=== PATIENT | male | born 2000 | race Caucasian/White ===

== ENCOUNTER 2022-12-20 11:30 | Emergency (ER) | payer OTHER, SELFPAY ==
--- NOTE | ~2022-12-20 | XR_ITS ---
EXAMINATION: XR KNEE, LEFT CLINICAL INFORMATION: Left knee pain. Anterior knee pain following a fall. COMPARISON: None TECHNIQUE: Four views of the left knee. FINDINGS: Bones and soft tissues are normal. No fracture or joint effusion. Alignment is anatomic. Joint spaces are well maintained. No abnormal soft tissue calcification. XR/XR knee LT 4V IMPRESSION: Unremarkable examination.
[2022-12-20 11:38] VITALS: BP 129/68; PULSE 76; RESP 18; TEMP 36.1; O2SAT 99; BMI 51.7
--- NOTE | 2022-12-20 11:41 | ED_ITS ---
HPI - General Adult General Chief complaint: Extremity Injury, Lower Stated complaint: L knee inj Time Seen by Provider: 12/20/22 11:41 Source: patient Mode of arrival: ambulatory Limitations: no limitations History of Present Illness HPI narrative: 22 [id number] presents with left knee pain s/p mechanical fall four days ago. Able to ambulate after. Denies head injury. Reports landing on medial aspect of knee with recent ER visit to [facility] without finding any acute process. Reports pain with extension. Also reports intermittent clicking when flexing knee. No limits with ROM. Onset (ago): day(s) (4) Location: left and lower extremity Radiation: non-radiation Severity: mild Severity scale (1-10): 3 Quality: dull Pain Consistency: intermittent Relieving factors: none Exacerbating factors: movement Associated symptoms: denies other symptoms Treatments prior to arrival: none Related Data Allergies Allergy/AdvReac Type Severity Reaction Status Date / Time No Known Allergies Allergy Verified 12/20/22 11:38 Review of Systems Constitutional: Constitutional: Reports no additional constitutional complaints, Denies chills, Denies fever(s) and Denies night sweats Eyes: Eyes: Reports as per HPI and Denies loss of vision ENT: Reports system reviewed and no additional complaints, except as doc umented and Denies dizziness Cardiovascular: Cardiovascular: Reports no additional cardiovascular complaints and Denies dyspnea Respiratory: Respiratory: Reports no additional respiratory complaints and Denies dyspnea Gastrointestinal: Gastrointestinal: Reports no additional gastrointestinal complaints, Denies abdominal pain, Denies melena, Denies hematochezia, Denies change in bowel habits and Denies change in stool character Genitourinary: Genitourinary: Reports no additional male genitourinary complaints, Denies hematuria, Denies oliguria, Denies difficulty urinating, Denies dysuria, Denies urinary frequency, Denies urinary hesitancy, Denies urinary incontinence and Denies urinary urgency Musculoskeletal: Musculoskeletal: Denies numbness and Denies tingling Comments: left knee pain Neurologic: Denies dizziness, Denies loss of vision, Denies numbness and Denies tingling Psychiatric: Psychiatric: Reports no additional psychiatric complaints Endocrine: Endocrine: Reports no additional endocrine complaints Hematologic/Lymphatic: Hematologic/Lymphatic: Reports no additional hematologic/lymphatic complaints Allergic/Immunologic: Allergic/Immunologic: Reports no additional allergic/immunologic complaints PMFSH Past Medical History Attestation statement: The following information was validated with the patient. Source: old records reviewed and nursing notes reviewed Social History Social History Advance Directives: No Advance Directives Information Provided: Yes Physical Exam ED Vital Signs: Vital Signs - 24 hr 12/20/22 11:38 Temperature 97 F Pulse Rate 76 Respiratory Rate 18 Blood Pressure 129/68 Pulse Oximetry 99 Oxygen Delivery Method Room Air BMI result Body Mass Index 51.7 Resp Auscultation: clear to auscultation bilaterally Cardio Rhythm: regular rhythm Heart sounds: S1 normal heart sound present and S2 normal heart sound present Extrem General: Yes normal to inspection, Yes full ROM and Yes capillary refill normal Left lower extremity: knee Details: abnormal to inspection, tenderness, swelling Location: of the infrapatellar area, normal ROM and ecchymosis (medial joint line) Procedures Orthopedic Splinting/Casting Injury #1: Side: left Lower Extremity Injury Location: knee Lower Extremity Immobilizer: Bebo wrap Other Orthopedic Equipment: crutches Medical Decision Making Medical Decision Making MDM Narrative: Patient is a 22 year old assigned male at with no reported medical history presenting to the emergency department today with left knee pain. Patient's physical exam was unremarkable. Patient's left knee x-ray showed no acute process. I explained my physical exam findings as well as all test results to the patient. I answered all questions asked by the patient. Patient's left knee was wrapped with bebo wrap and he was given crutches with crutch instructions. I stressed the importance of the patient taking his medication as prescribed. I stressed the importance of the patient following up with his primary care provider and an orthopedic provider. I stressed the importance of the patient returning to the emergency department immediately if his symptoms were to worsen or if he were to develop any dizziness, shortness of breath, difficulty breathing, chest pain, blurry vision, loss of vision, nausea, vomiting, abdominal pain, fever, chills, back pain, or any other complaints. Patient verbalized agreement and understanding with this treatment plan and discharge. Differential Diagnosis Differential Diagnoses: The differential diagnosis associated with the presentation includes left knee sprain, left knee strain, left knee injury Independent Interpretation Interpretation: My interpretation is in agreement with the radiologist's impression of this imaging study. EXAMINATION: XR KNEE, LEFT CLINICAL INFORMATION: Left knee pain. Anterior knee pain following a fall.? COMPARISON: None? TECHNIQUE: Four views of the left knee. FINDINGS: Bones and soft tissues are normal. No fracture or joint effusion. Alignment is anatomic. Joint spaces are well maintained. No abnormal soft tissue calcification.? XR/XR knee LT 4V IMPRESSION: Unremarkable examination. Dictated By: Yasmani Ramsey MD Signed By: Electronically signed by Yasmani Ramsey MD 12/20/22 8310 Discharge Plan Discharge Clinical Impression: Injury of knee Patient Disposition: Home, Self-Care Instructions: Crutch Instructions (ED), Knee Pain (ED) Additional Instructions: Follow up with your primary care provider and an orthopedic provider. Return to the emergency department immediately if your symptoms worsen or if you develop any dizziness, shortness of breath, difficulty breathing, chest pain, blurry vision, loss of vision, nausea, vomiting, abdominal pain, fever, chills, back pain, or any other complaints. Referrals: [facility] [place]] (Call to establish and follow up with a primary care provider. If you already have a primary care provider, please follow up with them. ) [facility] [Provider Group] (Call to establish and follow up with a primary care provider. If you already have a primary care provider, please follow up with them. ) [facility] [Provider Group] (Call to establish and follow up with a primary care provider. If you already have a primary care provider, please follow up with them. ) [facility] Surgeons [Provider Group] (Call to establish and follow up with an orthopedic provider.) Interventions: ED Discharge Assessment Last Done: 12/20/22 12:56 Discharge Date/Time: 12/20/22 12:57 Print Language: Grenadian
--- OUTSIDE RECORDS SUMMARY | 2022-12-20 12:08 | XMS_ITS | Continuity of Care Document ---
:2000 Author Organization [facility] Address [address] [place] [address]- Care Team Providers Name Role Phone Renea Puga MD Primary Care Physician [facility]counter [facility] Date(s): 12/02/21 - 01/01/22 [facility] [address] [place] [id number] Attending Physician: Hattie Cardenas Admitting Physician: Hattie Cardenas Referring Physician: Hattie Cardenas Allergies, Adverse Reactions, Alerts No Known Allergies Immunizations Given and Recorded Vaccine Date Status Refusal Reason Meningococcal Conjugate Vaccine1 06/01/18 Given Meningococcal Conjugate Vaccine 07/26/14 Given influenza virus vaccine, inactivated 07/15/17 Given influenza virus vaccine, inactivated 09/30/15 Given influenza virus vaccine, inactivated 07/26/14 Given influenza virus vaccine, inactivated2 07/22/11 Given influenza virus vaccine, inactivated3 10/30/10 Given influenza virus vaccine, inactivated 09/22/04 Given influenza virus vaccine, inactivated 02 Given influenza virus vaccine, inactivated 02 Given Human Papillomavirus Vaccine 09/10/16 Given Human Papillomavirus Vaccine 09/30/15 Given Human Papillomavirus Vaccine 07/26/14 Given tetanus/diphtheria/pertussis, acel(Tdap) 07/26/14 Given Hepatitis A Pediatric Vaccine4 07/04/12 Given Hepatitis A Pediatric Vaccine 08/20/07 Given Influenza Vaccine (oldterm)5 07/04/12 Given Influenza Vaccine (oldterm) 09/22/04 Given Influenza Vaccine (oldterm) 02 Given Influenza Vaccine (oldterm) 02 Given influ virus vac, H1N1, inactive(oldterm)6 09/12/09 Given Influenza Inactive (IM) (oldterm)7 11/13/08 Given Diphth/Pertussis,Acel/Tetanus (oldterm) 08/20/07 Given Varicella Virus Vaccine8 12/02/06 Given Varicella Virus Vaccine 03/16/03 Given diphtheria/tetanus/pertussis, acel(DTaP) 04/08/06 Given diphtheria/tetanus/pertussis, acel(DTaP) 01/04/04 Given diphtheria/tetanus/pertussis, acel(DTaP) 02 Given diphtheria/tetanus/pertussis, acel(DTaP) 02 Given diphtheria/tetanus/pertussis, acel(DTaP) 02 Given Poliovirus Vaccine, Inactivated 04/08/06 Given Poliovirus Vaccine, Inactivated 01/04/04 Given Poliovirus Vaccine, Inactivated 02 Given Poliovirus Vaccine, Inactivated 02 Given Measles/Mumps/Rubella Virus Vaccine 04/08/06 Given Measles/Mumps/Rubella Virus Vaccine 03/16/03 Given Prevnar (oldterm) 01/04/04 Given Prevnar (oldterm) 02 Given Prevnar (oldterm) 02 Given Haemophilus B Conj Vaccine (oldterm) 03/16/03 Given Haemophilus B Conj Vaccine (oldterm) 02 Given Haemophilus B Conj Vaccine (oldterm) 02 Given Haemophilus B Conj Vaccine (oldterm) 02 Given Hepatitis B Vaccine (old term) 02 Given Hepatitis B Vaccine (old term) 02 Given Hepatitis B Vaccine (old term) 02 Given 1Admin Note: Diluent Lot #[id number] [facility]05/[facility][id number] Note: vis given Admin Note: VIS Admin Note: VIS - Admin Note: vis given 05/09/201288521Vwzrv Note: vis dmin Note: VIS dmin Note: vis given Medications albuterol 0.083% inhalation solution 3 mL, Inhalation, Every 6 hours, PRN NEEDED FOR WHEEZING/SHORTNESS OF BREATH, # 150 mL, 5 Refills, Maintenance, 12/08/21 8:28:00 EST, [id number], 175.5, cm, 10/20/21 17:41:00 EST, Height Start Date: 12/08/21 Status: OrderedBanophen 25 mg oral tablet TAKE 2 TABLETS BY MOUTH EVERY DAY AT BEDTIME *N/C* Start Date: 03/26/21 Status: OrderedbusPIRone 5 mg oral tablet TAKE 1 TABLET BY MOUTH TWICE A DAY Start Date: 03/26/21 Status: OrderedFlonase 50 mcg/inh nasal spray 1 sprays, Nares, Both, Daily in AM, # 16 Gm, 11 Refills, Maintenance, 09/23/21 11:12:00 EST, [place], [id number], Partial fill upon patient request if the prescription is for a schedule II opioiddrug., 1 sprays Nares, Both Daily in AM, 175.5, c... Start Date: 09/23/21 Status: OrderedFlovent Diskus 100 mcg/inh inhalation powder 1 puffs, Inhalation, 2 times a day, # 60 each, 11 Refills, Maintenance, 09/23/21 11:11:00 EST, [place], [id number], Partial fill upon patient request if the prescription is for a schedule II opioid drug., 1 puffs Inhalation 2 times a day, 175.5... Start Date: 09/23/21 Status: OrderedNebulizer/Compressor See Instructions, # 1 each, Maintenance, dx asthma use nebulizer q 4-6 hrs as needed, 09/23/21 11:13:00 EST, Supply, 175.5, cm, 09/23/21 10:40:00 EST, Height Start Date: 09/23/21 Status: OrderedZyrTEC-D 5 mg-120 mg oral tablet, extended release 1 tablet, By Mouth, Every 24 hours, # 30 tablet, 2 Refills, Maintenance, 09/23/21 11:12:00 EST, ER Tablet, [id number], Partial fill upon patient request if the prescription is for a schedule IIopioid drug., 1 tablet By Mouth Every 24 hours,x3... Start Date: 09/23/21 Stop Date: 12/22/21 Status: Ordered Problem List Condition Effective Dates Status Health Status Informant ADHD - Attention deficit disorder with Active hyperactivity(Confirmed) Anxiety disorder NOS(Confirmed) Active Mild Intermittent Asthma(Confirmed) Active Dysthymic disorder - follows with Pat Active Hsea(Confirmed)1 Elevated BP(Confirmed) Active Rash(Confirmed) Active Obesity - follows with Pedi Active Endo(Confirmed) Obstructive sleep apnea syndrome, Active severe(Confirmed) 1PCODY Torres; Christine Tellez MIXER WHIPPED TOPPING [facility]; [phone]; CSI [address] Social History Social History Type Response Smoking Status Never smoker; Tobacco user i n household: Yes entered on: 09/28/17 Sex
--- OUTSIDE RECORDS SUMMARY | 2022-12-20 12:08 | XMS_ITS | Continuity of Care Document ---
:2002 Author Organization [facility] Address [address] [place] [address]- Care Team Providers Name Role Phone Renea Puga MD Primary Care Physician Encounter [facility] Date(s): 09/27/21 - 11/19/[address] [address]- Attending Physician: Not on Staff, Attending MD Allergies, Adverse Reactions, Alerts Substance Reaction Severity Status NKA Active Immunizations Given and Recorded Vaccine Date Status [...] term) 02 Given 1Admin Note: Diluent Lot #[id number] [facility]05/2019 [facility][id number] Note: vis given Admin Note: VIS Admin Note: VIS - Admin Note: vis given 05/09/201245041Lhufm Note: vis 08/09/097Admin Note: VIS dmin Note: vis given Medications Albuterol (Eqv-ProAir HFA) 90 mcg/inh inhalation aerosol 2 puffs, Inhalation, Every 6 hours, # 6.7 Gm, 11 Refills, Maintenance, 09/23/21 11:12:00 EST, [id number], Partial fill upon patient request if the prescription is for a schedule II opioid drug., 2 puffs Inhalation Every 6 hours, 175.5, cm, 11/... Start Date: 09/23/21 Status: Orderedalbuterol 0.083% inhalation solution 3 mL = 2.5 mg, Inhalation, Every 6 hours, PRN for wheezing/shortness of breath, # 60 each, 0 Refills, Maintenance, 09/23/21 11:12:00 EST, [place], [id number], Partial fill upon patient requestif the prescription is for a schedule II opioid d... Start Date: 09/23/21 Status: OrderedBanophen 25 mg oral tablet TAKE 2 TABLETS BY MOUTH EVERY DAY AT BEDTIME *N/C* Start Date: 03/26/21 Status: OrderedbusPIRone 5 mg oral tablet TAKE 1 TABLET BY MOUTH TWICE A DAY Start Date: 03/26/21 Status: OrderedFlonase 50 mcg/inh nasal spray 1 sprays, Nares, Both, Daily in AM, # 16 Gm, 11 Refills, Maintenance, 09/23/21 11:12:00 EST, [place], [facility], Partial fill upon patient request [...] Refills, Maintenance, 09/23/21 11:12:00 EST, ER Tablet, [id number], Partial fill upon patient request if the prescription is for a schedule IIopioid drug., 1 tablet By Mouth Every 24 hours,x3... Start Date: 09/23/21 Stop Date: 12/22/21 Status: Ordered Problem List Condition Effective Dates Status Health Status Informant ADHD - Attention deficit disorder with Active hyperactivity(Confirmed) Anxiety disorder NOS(Confirmed) Active Mild Intermittent Asthma(Confirmed) Active Dysthymic disorder - follows with Pat Active Shea(Confirmed)1 Elevated BP(Confirmed) Active Rash(Confirmed) Active Obesity - follows with Pedi Active Endo(Confirmed) Obstructive sleep apnea syndrome, Active severe(Confirmed) 1PCODY Torres; Christine Tellez BOX STRAPPER [facility]; [phone]; CSI [address] Social History Social History Type Response Smoking Status Never smoker; Tobacco user i n household: Yes entered on: 09/28/17 Sex
--- OUTSIDE RECORDS SUMMARY | 2022-12-20 12:08 | XMS_ITS | Continuity of Care Document ---
:2002 Author Organization [facility] Address [address] [place] [address]- Care Team Providers Name Role Phone Renea Puga MD Primary Care Physician [place] [facility]08[place] - 06/07/[address] [address]- Attending Physician: Hattie Cardenas Admitting Physician: Hattie Cardenas Referring Physician: Hattie Cardenas Allergies, Adverse Reactions, Alerts Substance Reaction Severity [...] term) 02 Given 1Admin Note: Diluent Lot #[id number] Exp:04/05/2019 Manuf;[id number] Note: vis given Admin Note: VIS Admin Note: VIS - Admin Note: vis given 05/09/201219543Xobvg Note: vis 08/09/097Admin Note: VIS dmin Note: vis given Medications Banophen 25 mg oral tablet TAKE 2 TABLETS BY MOUTH EVERY DAY AT BEDTIME *N/C* Start Date: 03/26/21 Status: OrderedbusPIRone 5 mg oral tablet TAKE 1 TABLET BY MOUTH TWICE A DAY Start Date: 03/26/21 Status: Ordered Problem List Condition Effective Dates Status Health Status Informant ADHD - Attention deficit disorder with Active hyperactivity(Confirmed) Anxiety disorder NOS(Confirmed) Active Mild Intermittent Asthma(Confirmed) Active Dysthymic disorder - follows with Pat Active Shea(Confirmed)1 Elevated BP(Confirmed) Active Rash(Confirmed) Active Obesity - follows with Pedi Active Endo(Confirmed) 1PCODY Torres; Christine Tellez CHIEF OPERATING ENGINEER [facility]; [phone]; CSI [address] Social History Social History Type Response Smoking Status Never smoker; Tobacco user i n household: Yes entered on: 09/28/17 Sex
--- OUTSIDE RECORDS SUMMARY | 2022-12-20 12:08 | XMS_ITS | Continuity of Care Document ---
:2002 Author Organization [facility] Address [address] [place] [address]- Care Team Providers Name Role Phone Renea Puga MD Primary Care Physician [place] [facility] [place] 07/29/22 - 08/28/22 [facility] [address] [address]- Attending Physician: Hattie Cardenas Admitting Physician: Hattie [...] term) 02 Given 1Admin Note: Diluent Lot #[id number] Exp:04/05/2019 Manuf;[id number] Note: vis given Admin Note: VIS Admin Note: VIS - Admin Note: vis given 05/09/201214458[place] Note: vis 08/09/097Admin Note: VIS dmin Note: [...] Gm, 11 Refills, Maintenance, 09/23/21 11:12:00 EST, [place], [id number], Partial fill upon patient request [...] Date: 12/22/21 Status: Ordered Problem List Condition Confirmation Course Effective Dates Status Health I nformant Status ADHD - Attention Confirmed Active deficit disorder with hyperactivity Anxiety disorder NOS Confirmed Active Mild Intermittent Confirmed Active Asthma Dysthymic disorder - Confirmed Active follows with Pat Weber1 Elevated BP Confirmed Active Rash Confirmed Active Obesity - follows Confirmed Active with Pedi Endo Obstructive sleep Confirmed Active apnea syndrome, severe 1Padrienne Puri, RNCS; Christine Tellez LOG LOADER HELPER [facility]; [phone]; CSI [address] Social History Social History Type Response Smoking Status Never smoker; Tobacco user i n household: Yes entered on: 09/28/17 Sex Patient Care team information PersonnelName: Renea Puga MD Address: Address: [address] [place] [id number]
--- OUTSIDE RECORDS SUMMARY | 2022-12-20 12:08 | XMS_ITS | Continuity of Care Document ---
:2002 Author Organization [facility] Address [address] [place] [address]- Care Team Providers Name Role Phone Renea Puga MD Primary Care Physician [place] [facility] [place] - 04/25/[address] [address]- Attending Physician: Hattie Cardenas Admitting Physician: Hattie [...] term) 02 Given 1Admin Note: Diluent Lot #[id number] Exp:04/05/2019 Manuf;[id number] Note: vis given Admin Note: VIS Admin Note: VIS - Admin Note: vis given 05/09/201210241Ydgsw Note: vis 08/09/097Admin Note: VIS dmin Note: [...] Pedi Active Endo(Confirmed) 1PCODY Torres; Christine Tellez ANODE REBUILDER [facility]; [phone]; CSI [address] [employer] Social History Social History Type Response Smoking Status Never smoker; Tobacco user i n household: Yes entered on: 09/28/17 Sex
--- OUTSIDE RECORDS SUMMARY | 2022-12-20 12:08 | XMS_ITS | Continuity of Care Document ---
:2002 Author Organization [facility] Address [address] [place] [address]- Care Team Providers Name Role Phone Renea Puga MD Primary Care Physician [place] [facility] [place] 11/07/21 - 03/07/22 [facility] [address] [place] [address]- Attending Physician: Mesha Stallworth MD Admitting Physician: Mesha Stallworth MD Referring Physician: Renea Puga MD Allergies, Adverse Reactions, Alerts No Known Allergies [...] term) 02 Given 1Admin Note: Diluent Lot #[id number] Exp:04/05/2019 Manuf;[id number] Note: vis given Admin Note: VIS Admin Note: VIS - Admin Note: vis given 05/09/201272115Mnxtp Note: vis 08/09/097Admin Note: VIS dmin Note: [...] Gm, 11 Refills, Maintenance, 09/23/21 11:12:00 EST, [place], [id number], Partial fill upon patient request [...] syndrome, Active severe(Confirmed) 1PCODY Torres; Christine Tellez COMMUNITY DEVELOPMENT COORDINATOR [facility]; [phone]; C[facility] [address] Social History Social History Type Response Smoking Status Never smoker; Tobacco user i n household: Yes entered on: 09/28/17 Sex
--- OUTSIDE RECORDS SUMMARY | 2022-12-20 12:08 | XMS_ITS | Continuity of Care Document ---
:2002 Author Organization [facility] Address [address] [place] [address]- Care Team Providers Name Role Phone Renea Puga MD Primary Care Physician En[place] [facility] [place] Date(s): 05/20/21 - 06/25/[address] [address] Attending Physician: Pat Haro MD Admitting Physician: Pat Haro MD Referring Physician: Pat Haro MD Allergies, Adverse Reactions, Alerts Substance Reaction [...] term) 02 Given 1Admin Note: Diluent Lot #[id number] Exp:04/05/2019 Manuf;[id number] Note: vis given Admin Note: VIS Admin Note: VIS - Admin Note: vis given 05/09/201283783Zwzft Note: vis 08/09/097Admin Note: VIS dmin Note: vis given Medications Banophen 25 mg oral tablet TAKE 2 TABLETS BY MOUTH EVERY DAY AT BEDTIME *N/C* Start Date: 5/19/21 Status: OrderedbusPIRone 5 mg oral tablet TAKE [...] Pedi Active Endo(Confirmed) 1PCODY Torres; Christine Tellez MSW [facility]; [phone]; CSI [address] Social History Social History Type Response Smoking Status Never smoker; Tobacco user i n household: Yes entered on: 09/28/17 Sex
--- OUTSIDE RECORDS SUMMARY | 2022-12-20 12:08 | XMS_ITS | Continuity of Care Document ---
:2002 Author Organization [facility] Address [address] [address]- Care Team Providers Name Role Phone Renea Puga MD Primary Care Physician [facility]counter [facility] Date(s): 12/01/21 - 02/14/22 [facility] [address] [place] [address] Attending Physician: Nuha Huffman MD Admitting Physician: Nuha Huffman MD Referring Physician: Renea Puga MD Allergies, [...] term) 02 Given 1Admin Note: Diluent Lot #[id number] Exp:04/05/2019 Manuf;[id number] Note: vis given Admin Note: VIS Admin Note: VIS - Admin Note: vis given 05/09/201276924Xljdp Note: vis 08/09/097Admin Note: VIS dmin Note: [...] Gm, 11 Refills, Maintenance, 09/23/21 11:12:00 EST, [place], [id number], Partial fill upon patient request [...] syndrome, Active severe(Confirmed) 1PCODY Torres; Christine Tellez CERTIFIED PROCEDURAL CODER [facility]; [phone]; [facility] [address] Social History Social History Type Response Smoking Status Never smoker; Tobacco user i n household: Yes entered on: 09/28/17 Sex
--- OUTSIDE RECORDS SUMMARY | 2022-12-20 12:08 | XMS_ITS | Continuity of Care Document ---
:2002 Author Organization [facility] Address [address] [place] [address]- Care Team Providers Name Role Phone Renea Puga MD Primary Care Physician [facility] Date(s): 09/18/21 - 10/18/[address] [address]- Allergies, Adverse Reactions, Alerts Substance Reaction Severity [...] term) 02 Given 1Admin Note: Diluent Lot #[id number] Exp:04/05/2019 Manuf;Cvdfr5Pmcow Note: vis given Admin Note: VIS Admin Note: VIS - Admin Note: vis given 05/09/201294339Yyupe Note: vis dmin Note: VIS dmin Note: vis given Medications Albuterol (Eqv-ProAir HFA) 90 mcg/inh inhalation aerosol 2 puffs, Inhalation, Every 6 hours, # 6.7 Gm, 11 Refills, Maintenance, 09/23/21 11:12:00 EST, [facility]/pharmacy #1972, Partial fill upon patient request if the prescription is for a schedule II opioid drug., 2 puffs Inhalation Every 6 hours, 175.5, cm, ... Start Date: 09/23/21 Status: Orderedalbuterol 0.083% inhalation [...] Gm, 11 Refills, Maintenance, 09/23/21 11:12:00 EST, [place], [facility]/pharmacy #1972, Partial fill upon patient request if [...] Pedi Active Endo(Confirmed) 1PCODY Torres; Christine Tellez ASSOCIATE PROGRAM MANAGER [facility]; [phone]; CSI [address] [place] Social History Social History Type Response Smoking Status Never smoker; Tobacco user i n household: Yes entered on: 09/28/17 Sex
--- OUTSIDE RECORDS SUMMARY | 2022-12-20 12:08 | XMS_ITS | Continuity of Care Document ---
:2002 Author Organization [facility] Address [address] [place] [address]- Care Team Providers Name Role Phone Renea Puga MD Primary Care Physician [facility] Date(s): 11/10/21 - 12/10/[address] [address]- Allergies, Adverse Reactions, Alerts No Known Allergies [...] term) 02 Given 1Admin Note: Diluent Lot #[id number] Exp:04/05/2019 [facility];Gpmoz8Ekmto Note: vis given Admin Note: VIS Admin Note: VIS - Admin Note: vis given 05/09/201276985Aorsz Note: vis dmin Note: VIS dmin Note: vis given Medications albuterol 0.083% inhalation solution 3 mL, Inhalation, Every 6 hours, PRN NEEDED FOR WHEEZING/SHORTNESS OF BREATH, # 150 mL, 5 Refills, Maintenance, 12/08/21 8:28:00 EST, [facility]/pharmacy #1972, 175.5, cm, 10/20/21 17:41:00 EST, Height [...] Gm, 11 Refills, Maintenance, 09/23/21 11:12:00 EST, [place], [facility], Partial fill upon patient request [...] syndrome, Active severe(Confirmed) 1PCODY Torres; Christine Tellez MSW [facility]; [phone]; CSI [address] [place] Social History Social History Type Response Smoking Status Never smoker; Tobacco user i n household: Yes entered on: 09/28/17 Sex
--- OUTSIDE RECORDS SUMMARY | 2022-12-20 12:08 | XMS_ITS | Continuity of Care Document ---
:2002 Author Organization [facility] Address [address] [place] [address]- Care Team Providers Name Role Phone Renea Puga MD Primary Care Physician [facility] Date(s): 03/05/22 - 04/04/[address] [address]- Allergies, Adverse Reactions, Alerts No Known Allergies [...] term) 02 Given 1Admin Note: Diluent Lot #[id number] Exp:04/05/2019 Manuf;Jiztd7Zbnbv Note: vis given Admin Note: VIS Admin Note: VIS - Admin Note: vis given 05/09/201205930Pvkmr Note: vis dmin Note: VIS dmin Note: vis given Medications albuterol 0.083% inhalation solution 3 mL, Inhalation, Every 6 hours, PRN NEEDED FOR WHEEZING/SHORTNESS OF BREATH, # 150 mL, 5 Refills, Maintenance, 12/08/21 8:28:00 EST, [facility]/pharmacy #1972, 175.5, cm, 10/20/21 17:41:00 EST, Height [...] Gm, 11 Refills, Maintenance, 09/23/21 11:12:00 EST, [place], [facility]/pharmacy #1972, Partial fill upon patient request if the prescription is for a schedule II opioiddrug., 1 sprays Nares, Both Daily in AM, 175.5, c... Start Date: 09/23/21 Status: OrderedFlovent Diskus 100 mcg/inh inhalation powder 1 puffs, Inhalation, 2 times a day, # 60 each, 11 Refills, Maintenance, 09/23/21 11:11:00 EST, [place], [facility]/pharmacy #1972, Partial fill upon patient request if [...] syndrome, Active severe(Confirmed) 1PCODY Torres; Christine Tellez GLASS SANDER [facility]; [phone]; CSI [address] [place] Social History Social History Type Response Smoking Status Never smoker; Tobacco user i n household: Yes entered on: 09/28/17 Sex
--- OUTSIDE RECORDS SUMMARY | 2022-12-20 12:08 | XMS_ITS | Continuity of Care Document ---
:2002 Author Organization [facility] Address [address] [place] [address]- Care Team Providers Name Role Phone Renea Puga MD Primary Care Physician [facility] Date(s): 11/10/21 - 12/11/[address] [address]- Attending Physician: Darron Tripp MD Admitting Physician: Darron Tripp MD Allergies, Adverse Reactions, Alerts No Known [...] term) 02 Given 1Admin Note: Diluent Lot #[id number] Exp:04/05/2019 Manuf;Dobof2Nfmmu Note: vis given Admin Note: VIS Admin Note: VIS - Admin Note: vis given 05/09/201274694Ufxha Note: vis 08/09/097Admin Note: VIS dmin Note: [...] Gm, 11 Refills, Maintenance, 09/23/21 11:12:00 EST, [place], [facility], Partial fill upon patient request [...] syndrome, Active severe(Confirmed) 1PCODY Torres; Christine Tellez LEATHER GOODS SALES REPRESENTATIVE [facility]; [phone]; CSI [address] Social History Social History Type Response Smoking Status Never smoker; Tobacco user i n household: Yes entered on: 09/28/17 Sex
--- OUTSIDE RECORDS SUMMARY | 2022-12-20 12:08 | XMS_ITS | Continuity of Care Document ---
:2002 Author Organization [facility] Address [address] [place] [address]- Care Team Providers Name Role Phone Renea Puga MD Primary Care Physician Encounter [facility] Date(s): 02/26/22 - 04/03/[address] [address] Attending Physician: Romana Israel NP Admitting Physician: Romana Israel NP Referring Physician: Romana Israel NP Allergies, Adverse Reactions, Alerts No Known Allergies [...] term) 02 Given 1Admin Note: Diluent Lot #[id number] Exp:04/05/2019 Manuf;Jgwsc8Wzsbw Note: vis given Admin Note: VIS Admin Note: VIS - Admin Note: vis given 05/09/201254429Tupqo Note: vis 08/09/097Admin Note: VIS dmin Note: vis given Medications albuterol 0.083% inhalation solution 3 mL, Inhalation, Every 6 hours, PRN NEEDED FOR WHEEZING/SHORTNESS OF BREATH, # 150 mL, 5 Refills, Maintenance, 01/31/22 8:28:00 EST, [facility], 175.5, cm, 10/20/21 [...] Gm, 11 Refills, Maintenance, 09/23/21 11:12:00 EST, [place], [facility], Partial fill upon patient request [...] syndrome, Active severe(Confirmed) 1PCODY Torres; Christine Tellez INSPECTOR CHIEF [facility]; [phone]; CSI [address] Social History Social History Type Response Smoking Status Never smoker; Tobacco user i n household: Yes entered on: 09/28/17 Sex
--- OUTSIDE RECORDS SUMMARY | 2022-12-20 12:08 | XMS_ITS | Continuity of Care Document ---
:2002 Author Organization [facility] Address [address] [place] [address]- Care Team Providers Name Role Phone Renea Puga MD Primary Care Physician [facility] Date(s): 01/15/22 - 02/14/22 [facility] [address] [place] [address] Attending Physician: Hattie Cardenas Admitting Physician: [...] term) 02 Given 1Admin Note: Diluent Lot #[id number] Exp:04/05/2019 Manuf;Qbqrs5Ihygu Note: vis given Admin Note: VIS Admin Note: VIS - Admin Note: vis given 05/09/201291838Jstvu Note: vis 08/09/097Admin Note: VIS dmin Note: [...] Gm, 11 Refills, Maintenance, 09/23/21 11:12:00 EST, [place], [facility], Partial fill upon patient request [...] syndrome, Active severe(Confirmed) 1PCODY Torres; Christine Tellez CRITICAL CARE PARAMEDIC [facility]; [phone]; CSI [address] Social History Social History Type Response Smoking Status Never smoker; Tobacco user i n household: Yes entered on: 09/28/17 Sex
--- OUTSIDE RECORDS SUMMARY | 2022-12-20 12:08 | XMS_ITS | Continuity of Care Document ---
:2002 Author Organization [facility] Address [address] [place] [address]- Care Team Providers Name Role Phone Renea Puga MD Primary Care Physician Encounter [facility] Date(s): 03/10/22 - 04/15/[address] [address] Attending Physician: Romana Israel NP [...] term) 02 Given 1Admin Note: Diluent Lot #[id number] Exp:04/05/2019 Manuf;Svgzc7Hlceq Note: vis given Admin Note: VIS Admin Note: VIS - Admin Note: vis given 05/09/201296217Ulznk Note: vis 08/09/097Admin Note: VIS dmin Note: [...] Gm, 11 Refills, Maintenance, 09/23/21 11:12:00 EST, [place], [facility], Partial fill upon patient request [...] syndrome, Active severe(Confirmed) 1PCODY Torres; Christine Tellez END MATCHER [facility]; [phone]; CSI [address] Social History Social History Type Response Smoking Status Never smoker; Tobacco user i n household: Yes entered on: 09/28/17 Sex
--- OUTSIDE RECORDS SUMMARY | 2022-12-20 12:09 | XMS_ITS | Continuity of Care Document ---
:2002 Author Organization [facility] Address [address] [place] [address]- Care Team Providers Name Role Phone Renea Puga MD Primary Care Physician [facility] Date(s): 09/29/21 - 01/01/22 [facility] [address] [place] [address]- Attending Physician: Van Quach MD Admitting Physician: Van Quach MD Referring Physician: Lora Nichols Allergies, Adverse Reactions, Alerts No Known Allergies [...] term) 02 Given 1Admin Note: Diluent Lot #[id number] Exp:04/05/2019 Manuf;Fhbxg8Nioqy Note: vis given Admin Note: VIS Admin Note: VIS - Admin Note: vis given 05/09/201200995Jsonp Note: vis 08/09/097Admin Note: VIS dmin Note: [...] Gm, 11 Refills, Maintenance, 09/23/21 11:12:00 EST, [place], [facility], Partial fill upon patient request [...] syndrome, Active severe(Confirmed) 1PCODY Torres; Christine Tellez SLEEVE SEWER [facility]; [phone]; CSI [address] Social History Social History Type Response Smoking Status Never smoker; Tobacco user i n household: Yes entered on: 09/28/17 Sex
--- OUTSIDE RECORDS SUMMARY | 2022-12-20 12:09 | XMS_ITS | Continuity of Care Document ---
:2002 Author Organization [facility] Address [address] [place] [address]- Care Team Providers Name Role Phone Renea Puga MD Primary Care Physician [facility] Date(s): 12/19/22 - 12/19/[address] [address]- Discharge Disposition: A-D/C Walkout Attending Physician: Not on Staff, Attending MD Admitting Physician: Not on Staff, Admitting MD Referring Physician: Not on Staff, Referring MD Allergies, Adverse Reactions, Alerts No Known [...] term) 02 Given 1Admin Note: Diluent Lot #[id number] Exp:04/05/2019 Manuf;Eyvzz7Efufm Note: vis given Admin Note: VIS Admin Note: VIS - Admin Note: vis given 05/09/201209675Ukial Note: vis 08/09/097Admin Note: VIS dmin Note: vis given Medications albuterol 0.083% inhalation solution 3 mL, Inhalation, Every 6 hours, PRN NEEDED FOR WHEEZING/SHORTNESS OF BREATH, # 150 mL, 5 Refills, Maintenance, 12/08/21 8:28:00 EST, [facility]/pharmacy #1972, 175.5, cm, 10/20/21 17:41:00 EST, Height Start Date: 12/08/21 Status: Orderedalbuterol CFC free 90 mcg/inh inhalation aerosol 2, puffs, Inhalation, Every 6 hours, PRN, # 1 each, Refills 1, Tot. Refills 1, Maintenance, 10/09/2214:07:00 EST, Route to Pharmacy Electronically, [id number], [facility]/pharmacy #1972, 175.5, cm, 01/21/22 14:00:00 EDT, Height Start Date: 10/09/22 Stop Date: 12/08/22 Status: OrderedBanophen 25 mg oral tablet TAKE 2 TABLETS BY MOUTH EVERY DAY AT BEDTIME *N/C* Start Date: 03/26/21 Status: OrderedbusPIRone 5 mg oral tablet TAKE 1 TABLET BY MOUTH TWICE A DAY Start Date: 03/26/21 Status: OrderedFlonase 50 mcg/inh nasal spray 1 sprays, Nares, Both, Daily in AM, # 16 Gm, 11 Refills, Maintenance, 09/23/21 11:12:00 EST, [place], [facility]/pharmacy #1972, Partial fill upon patient request if the prescription is for a schedule II opioiddrug., 1 sprays Nares, Both Daily in AM, 175.5, c... Start Date: 09/23/21 Status: OrderedFlovent Diskus 100 mcg/inh inhalation powder 1 puffs, Inhalation, 2 times a day, # 60 each, 11 Refills, Maintenance, 09/23/21 11:11:00 EST, [place], [facility]/pharmacy #1972, Partial fill upon patient request if [...] Obstructive sleep Confirmed Active apnea syndrome, severe Severe obesity Confirmed Active 1Patricia CODY Puri; Christine Tellez FRETTED STRING INSTRUMENT REPAIRER ASSISTANT [employer]; [phone]; CSI [address] [facility] Results Radiology Reports Exam Date Time Procedure Performing Provider Status 12/19/22 8:37 PM Knee 1 or 2 Views Left Abilio Lopez; Ilsa ( Verified) Notes:(Knee 1 or 2 Views Left) Reason For Exam: with Pain;TraumaRESULT: Knee 1 or 2 Views Left Knee 1 or 2 Views Left, 2 views Hx of Present Illness: left knee pain with palpation. fell on knee 3 days ago. ambulating w o difficulty but feels tight when moves a certtain way.; Reason: Trauma; with Pain; Clinical Question(s): Fracture; Special Instructions: This is a protocol film and radiologist should call any findings to the Charge Nurse COMPARISON: 12/16/2022. FINDINGS: There is no evidence of acute or healing fracture, dislocation or bone lesion. No arthritic changes. No osteochondral defects or intra-articular loose bodies. No evidence of joint effusion. No acute abnormality of the soft tissues. IMPRESSION: No acute abnormality. WSN: [id number] Ordering Physician: Volodymyr Mcghee Dictated By: Raj Jules MD Dictated Date/Time: 12/19/22 9:09 pm Reviewed By: Raj Jules MD Signed By: Raj Jules MD Signed Date/Time: 12/19/22 9:09 pm Transcribed By: MAJO Transcribed Date/Time: 12/19/22 9:07 pm Vital Signs Most recent to oldest [Reference Range]: 1 Height 175 cm (12/19/22 8:15 PM) Weight 160 kg (12/19/22 8:15 PM) Oxygen Saturation [94-100 %] 99 % (12/19/22 8:15 PM) Pulse Rate [55-90 bpm] 92 bpm *H* (12/19/22 8:15 PM) Body Mass Index [18.5-24.99 kg/m2] 52.24 kg/m2 *>HHI* (12/19/22 8:15 PM) Blood Pressure [90-138/55-84 mm Hg] 163/78 mm Hg *H* (12/19/22 8:15 PM) Respiratory Rate [16-30 br/min] 18 br/min (12/19/22 8:15 PM) Temperature [96.8-100.4 DegF] 99.0 DegF (12/19/22 8:15 PM) Mode of Delivery (Oxygen) Room air (12/19/22 8:15 PM) Blood pressure sites Arm, right (12/19/22 8:15 PM) Temperature Route Oral (12/19/22 8:15 PM) Dry Weight 160 kg (12/19/22 8:15 PM) Weight Obtained Via Standing scale (12/19/22 8:15 PM) Dry Weight Obtained Via Standing scale (12/19/22 8:15 PM) Social History Social History Type Response Smoking Status Never smoker; Tobacco user i n household: Yes entered on: 09/28/17 Sex XR Knee - left 1 or 2 Views BHSPowerscribe , CIS S: TRANSCRaj Rebolledo MD: VERIFY Event Display: Result: Authored Date: Knee 1 or 2 Views Left, 2 views Hx of Present Illness: left knee pain with palpation. fell on knee 3 days ago. ambulating w o difficulty but feels tight when moves a certtain way.; Reason: Trauma; with Pain; Clinical Question(s): Fracture; Special Instructions: This is a protocol film and radiologist should call any findings to the Charge Nurse COMPARISON: 12/16/2022. FINDINGS: There is no evidence of acute or healing fracture, dislocation or bone lesion. No arthritic changes. No osteochondral defects or intra-articular loose bodies. No evidence of joint effusion. No acute abnormality of the soft tissues. IMPRESSION: No acute abnormality. WSN: [id number] Ordering Physician: Volodymyr Mcghee Dictated By: Raj Jules MD Dictated Date/Time: 12/19/22 9:09 pm Reviewed By: Raj Jules MD Signed By: Raj Jules MD Signed Date/Time: 12/19/22 9:09 pm Transcribed By: MAJO Transcribed Date/Time: 12/19/22 9:07 pm Patient Care team information Care Team PersonnelName: Renea Puga MD Position: [facility] Resident Member Role: PCP Address: Address: [address] [place] [address]- Care Team Related PersonsName: BRISEYDA HUITRON Address: home [address] [place] [address] Name: DELGADO HUITRON Address: home [address] [place] [address] Name: JAMMIE HARRY Address: home [address] [place] [address]
--- OUTSIDE RECORDS SUMMARY | 2022-12-20 12:09 | XMS_ITS | Continuity of Care Document ---
:2002 Author Organization [facility] Address [address] [place] [address]- Care Team Providers Name Role Phone Renea Puga MD Primary Care Physician Encounter [facility] Date(s): 05/07/21 - 06/07/[address] [address]- Attending Physician: Swati Truong MD Admitting Physician: Swati Truong MD Referring Physician: Renea Puga MD Allergies, Adverse Reactions, Alerts Substance Reaction [...] term) 02 Given 1Admin Note: Diluent Lot #[id number] Exp:04/05/2019 Manuf;Vbqqm7Hhike Note: vis given Admin Note: VIS Admin Note: VIS - Admin Note: vis given 05/09/201200657Jdoni Note: vis 08/09/097Admin Note: VIS dmin Note: [...] Active Endo(Confirmed) 1PCODY Torres; Christine Tellez MSW [facility]; [phone]; [address] [place] Social History Social History Type Response Smoking Status Never smoker; Tobacco user i n household: Yes entered on: 09/28/17 Sex
--- OUTSIDE RECORDS SUMMARY | 2022-12-20 12:09 | XMS_ITS | Continuity of Care Document ---
:2002 Author Organization [facility] Address [address] [place] [address]- Care Team Providers Name Role Phone Renea Puga MD Primary Care Physician [facility] Date(s): 11/22/20 - 12/22/[address] [address]- Allergies, Adverse Reactions, Alerts Substance Reaction Severity [...] term) 02 Given 1Admin Note: Diluent Lot #[id number] Exp:04/05/2019 Manuf;Flhhs6Sintq Note: vis given Admin Note: VIS Admin Note: VIS - Admin Note: vis given 05/09/201209705Mfocj Note: vis dmin Note: VIS dmin Note: vis given Medications diphenhydrAMINE 25 mg oral tablet 1 tablet = 25 mg, By Mouth, Daily at bedtime, PRN for allergy symptoms, Maintenance, 11/12/20 11:42:00 EST, [place], Partial fill upon patient request if the prescription is for a schedule II opioid drug. Start Date: 11/12/20 Status: OrderedLamoTRIgine Starter Kit orange oral tablet 1 tablet, By Mouth, Daily, TAKE 1 TABLET BY MOUTH DIRECTED Start Date: 11/12/20 Status: Ordered Problem List Condition Effective Dates Status Health Status Informant ADHD - Attention deficit disorder with Active hyperactivity(Confirmed) Anxiety disorder NOS(Confirmed) Active Mild Intermittent Asthma(Confirmed) Active Dysthymic disorder - follows with Pat Active Shea(Confirmed)1 Elevated BP(Confirmed) Active Rash(Confirmed) Active Obesity - follows with Pedi Active Endo(Confirmed) 1PCODY Torres; Christine Tellez PSYCHIATRIC SOCIAL WORKER [facility]; [phone]; CSI [address] Social History Social History Type Response Smoking Status Never smoker; Tobacco user i n household: Yes entered on: 09/28/17 Sex
--- OUTSIDE RECORDS SUMMARY | 2022-12-20 12:09 | XMS_ITS | Continuity of Care Document ---
:2002 Author Organization [facility] Address [address] [place] [address]- Care Team Providers Name Role Phone Aron West MD Primary Care Physician [facility] Date(s): 12/08/19 - 12/18/[address] [address]- [facility] Attending Physician: Hattie Cardenas Admitting Physician: Hattie Cardenas Referring Physician: AdmtrHattie Allergies, Adverse Reactions, Alerts Substance Reaction Severity [...] term) 02 Given 1Admin Note: Diluent Lot #[id number] Exp:04/05/2019 Manuf;Ouhxi9Fjghk Note: vis given Admin Note: VIS Admin Note: VIS - Admin Note: vis given 05/09/201247934Ygxla Note: vis dmin Note: VIS dmin Note: vis given Medications hyoscyamine 0.125 mg oral tablet 0.25 mg, 2, tablet, By Mouth, 2 times a day, # 360 tablet, Refills 1, Tot. Refills 1, Maintenance, 08/15/19 14:07:36 EDT, Route to Pharmacy Electronically, [id number], [facility] Start Date: 08/15/19 Status: Ordered Problem List Condition Effective Dates Status Health Status Informant ADHD - Attention deficit disorder with Active hyperactivity(Confirmed) Anxiety disorder NOS(Confirmed) Active Mild Intermittent Asthma(Confirmed) Active Dysthymic disorder - follows with Pat Active Shea(Confirmed)1 Elevated BP(Confirmed) Active Rash(Confirmed) Active Obesity - follows with Pedi Active Endo(Confirmed) 1PCODY Torres; Christine Tellez MSW [facility]; [phone]; CSI [address] [place] Social History Social History Type Response Smoking Status Never smoker; Tobacco user i n household: Yes entered on: 09/28/17 Sex
--- OUTSIDE RECORDS SUMMARY | 2022-12-20 12:09 | XMS_ITS | Continuity of Care Document ---
:[address] [facility] Address [address] [place] [address]- Care Team Providers Name Role Phone Renea Puga MD Primary Care Physician [facility] Date(s): 07/15/21 - 08/14/[address] [address]- Allergies, Adverse Reactions, Alerts Substance Reaction Severity [...] term) 02 Given 1Admin Note: Diluent Lot #[id number] Exp:04/05/2019 [facility];Lclqi9Mqtim Note: vis given Admin Note: VIS Admin Note: VIS - Admin Note: vis given 05/09/201254468Gkkvv Note: vis dmin Note: VIS dmin Note: [...] Pedi Active Endo(Confirmed) 1PCODY Torres; Christine Tellez OUTDOOR FITNESS TRAINER [facility]; [phone]; CSI [address] [place] Social History Social History Type Response Smoking Status Never smoker; Tobacco user i n household: Yes entered on: 09/28/17 Sex
--- OUTSIDE RECORDS SUMMARY | 2022-12-20 12:09 | XMS_ITS | Continuity of Care Document ---
:2002 Author Organization [facility] Address [address] [place] [address]- Care Team Providers Name Role Phone Renea Puga MD Primary Care Physician [facility]counter [facility] Date(s): 07/04/21 - 08/03/[address] [address]- Allergies, Adverse Reactions, Alerts Substance Reaction Severity [...] term) 02 Given 1Admin Note: Diluent Lot #[id number] [facility]agr1Rxbrr Note: vis given Admin Note: VIS Admin Note: VIS - Admin Note: vis given 05/09/201262896Ybfod Note: vis dmin Note: VIS dmin Note: [...] Pedi Active Endo(Confirmed) 1PCODY Torres; Christine Tellez PICKERS MATERIAL HANDLERS [facility]; [phone]; CSI [address] Social History Social History Type Response Smoking Status Never smoker; Tobacco user i n household: Yes entered on: 09/28/17 Sex
--- OUTSIDE RECORDS SUMMARY | 2022-12-20 12:09 | XMS_ITS | Continuity of Care Document ---
:2002 Author Organization [facility] Address [address] [place] [address]- Care Team Providers Name Role Phone Renea Puga MD Primary Care Physician Encounter [facility] Date(s): 02/20/22 - 08/28/22 [facility] [address] [address] Attending Physician: Mesha Stallworth MD Admitting Physician: [...] term) 02 Given 1Admin Note: Diluent Lot #[id number] Exp:04/05/2019 Manuf;Xpecy8Bctyc Note: vis given Admin Note: VIS Admin Note: VIS - Admin Note: vis given 05/09/201288165Qwkdg Note: vis 08/09/097Admin Note: VIS dmin Note: [...] Gm, 11 Refills, Maintenance, 09/23/21 11:12:00 EST, [place], [facility], Partial fill upon patient request [...] disorder - Confirmed Active follows with Pat Monse1 Elevated BP Confirmed Active Rash Confirmed Active Obesity - follows Confirmed Active with Pedi Endo Obstructive sleep Confirmed Active apnea syndrome, severe 1Padrienne Puri RNCS; Christine Tellez COSMETIC SALES ASSISTANT [employer]; [phone]; CSI [address] Social History Social History Type Response Smoking Status Never smoker; Tobacco user i n household: Yes entered on: 09/28/17 Sex Patient Care team information PersonnelName: Renea Puga MD Address: Address: [address] [place] [id number]
--- OUTSIDE RECORDS SUMMARY | 2022-12-20 12:09 | XMS_ITS | Continuity of Care Document ---
:2002 Author Organization [facility] Address [address] [place] [address]- Care Team Providers Name Role Phone Renea Puga MD Primary Care Physician [facility] Date[facility]): 03/[facility]/22 - 04/12/[address] [address]- Attending Physician: Not on Staff, Attending MD Allergies, Adverse Reactions, Alerts No Known [...] term) 02 Given 1Admin Note: Diluent Lot #[id number] [facility]2019 [facility][id number] Note: vis given Admin Note: VIS Admin Note: VIS - Admin Note: vis given 05/09/201231761Nwfoe Note: vis dmin Note: VIS dmin Note: [...] Gm, 11 Refills, Maintenance, 09/23/21 11:12:00 EST, [place], [facility], Partial fill upon patient request [...] syndrome, Active severe(Confirmed) 1PCODY Torres; Christine Tellez DIRECTOR OF PROVIDER RELATIONS [facility]; [phone]; CSI [address] Social History Social History Type Response Smoking Status Never smoker; Tobacco user i n household: Yes entered on: 09/28/17 Sex
--- OUTSIDE RECORDS SUMMARY | 2022-12-20 12:09 | XMS_ITS | Continuity of Care Document ---
:2002 Author Organization [facility] Address [address] [place] [address]- Care Team Providers Name Role Phone Renea Puga MD Primary Care Physician [facility] Date(s): 12/29/20 - 01/28/[address] [address] Allergies, Adverse Reactions, Alerts Substance Reaction Severity [...] term) 02 Given 1Admin Note: Diluent Lot #[id number] Exp:04/05/2019 Manuf;[id number] Note: vis given Admin Note: VIS Admin Note: VIS - Admin Note: vis given 05/09/201232041Gtlfx Note: vis dmin Note: VIS dmin Note: [...] Pedi Active Endo(Confirmed) 1PCODY Torres; Christine Tellez HEAD CLEANING PORTER COLOR WEIGHER; [phone]; CSI [address] Social History Social History Type Response Smoking Status Never smoker; Tobacco user i n household: Yes entered on: 09/28/17 Sex
--- OUTSIDE RECORDS SUMMARY | 2022-12-20 12:09 | XMS_ITS | Continuity of Care Document ---
:2002 Author Organization [facility] Address [address] [place] [address]- Care Team Providers Name Role Phone Renea Puga MD Primary Care Physician Encounter [facility] Date(s): 09/19/21 - 09/19/[address] [address]- Encounter Diagnosis Asthma exacerbation (Final) - 09/19/21 Discharge Disposition: A-D/C Home Attending Physician: Jose Miguel Guerrier MD Admitting Physician: Jose Miguel Guerrier MD Referring Physician: Not on Staff, Referring MD Allergies, Adverse Reactions, Alerts Substance Reaction [...] term) 02 Given 1Admin Note: Diluent Lot #[id number] Exp:04/05/2019 Manuf;[id number] Note: vis given Admin Note: VIS Admin Note: VIS - Admin Note: vis given 05/09/201257206Ssuuz Note: vis dmin Note: VIS dmin Note: [...] Obesity - follows with Pedi Active Endo(Confirmed) 1Padrienne Puri, EVELIOCS; Christine Tellez PATIENT REGISTRATION MANAGER MANAGER SUPPLY CHAIN PLANNING; [phone]; CSI [address] [facility] Results Radiology Reports Exam Date Time Procedure Performing Provider Status 09/19/21 4:39 AM Chest Portable Rafaela Mclean; Ilsa ([facility] ed) Notes:(Chest Portable) Reason For Exam: sob cough;Other:RESULT: Chest Portable Chest Portable AP upright 4:20 AM Hx of Present Illness: Pt brought in by ambulance from home for increasing SOB x 1 week, hx of asthma, given 2g mag, duo neb, and Zofran en route after vomiting.; Reason: sob cough; Clinical Question(s): chf pna COMPARISON: 02/06/2005 and 12/07/1999 FINDINGS: Study is underpenetrated. LINES AND TUBES: None. LUNGS AND PLEURA: The lungs are clear. No pleural effusion. No pneumothorax. HEART, MEDIASTINUM AND MARIA M: Normal. BONES AND SOFT TISSUES: Normal. IMPRESSION: No acute cardiopulmonary process. I have personally reviewed the images and I agree with this report. WSN: [id number] Ordering Physician: Lee Salazar Dictated By: Brant Escalante DO Dictated Date/Time: 09/19/21 10:46 a Reviewed By: Marilyn Brink MD Signed By: Marilyn Brink MD Signed Date/Time: 09/19/21 10:51 am Transcribed By: MAJO Transcribed Date/Time: 09/19/21 9:44 am Vital Signs Most recent to oldest 1 2 3 [Reference Range]: Oxygen Saturation [94-100 %] 96 % 98 % 94 % (09/19/21 6:45 AM) (09/19/21 4:57 AM) (09/19/21 3:57 AM) Pulse Rate [55-90 bpm] 102 bpm 90 bpm 114 bpm *H* (09/19/21 4:57 AM) *H* (09/19/21 6:45 AM) (09/19/21 3:5 7 AM) Blood Pressure [90-138/55-84 101/83 mm Hg 128/57 mm Hg 139 /42 mm Hg mm Hg] (09/19/21 6:45 AM) (09/19/21 4:57 AM) *H* (09/19/21 3:57 A M) Respiratory Rate [16-30 22 br/min 32 br/min 21 br/mi n br/min] (09/19/21 6:45 AM) *H* (09/19/21 3:5 7 AM) (09/19/21 4:57 AM) Temperature [96.8-100.4 97.8 DegF 97.9 DegF DegF] (09/19/21 6:45 AM) (09/19/21 3:15 AM) Mode of Delivery (Oxygen) Room air Other: nebulizer Room air (09/19/21 6:45 AM) (09/19/21 4:57 AM) (09/19/21 3:57 AM) Temperature Route Oral Oral (09/19/21 6:45 AM) (09/19/21 3:15 AM) Social History Social History Type Response Smoking Status Never smoker; Tobacco user i n household: Yes entered on: 09/28/17 Sex
--- OUTSIDE RECORDS SUMMARY | 2022-12-20 12:09 | XMS_ITS | Continuity of Care Document ---
:2002 Author Organization [facility] Address [address] [place] [address]- Care Team Providers Name Role Phone Renea Puga MD Primary Care Physician [facility] Date(s): 07/02/21 - 08/01/[address] [address]- Allergies, Adverse Reactions, Alerts Substance Reaction Severity [...] term) 02 Given 1Admin Note: Diluent Lot #[id number] [facility]Rggtc4Vlhqe Note: vis given Admin Note: VIS Admin Note: VIS - Admin Note: vis given 05/09/201223273Yjnkx Note: vis dmin Note: VIS dmin Note: [...] Pedi Active Endo(Confirmed) 1PCODY Torres; Christine Tellez PASTE UP ARTIST TABLE GAMES DEALER; [phone]; CSI [address] [facility] Vital Signs Most recent to oldest [Reference Range]: 1 Height 175.5 cm (07/02/21 5:13 PM) Weight 123.6 kg (07/02/21 5:13 PM) Social History Social History Type Response Smoking Status Never smoker; Tobacco user i n household: Yes entered on: 09/28/17 Sex
--- OUTSIDE RECORDS SUMMARY | 2022-12-20 12:09 | XMS_ITS | Continuity of Care Document ---
:2002 Author Organization [facility] Address [address] [place] [address]- Care Team Providers Name Role Phone Renea Puga MD Primary Care Physician [facility] Date[facility]s): 03/09/22 - 03/09/[address] [address]- Discharge Disposition: A-D/C Walkout Attending Physician: Not [...] term) 02 Given 1Admin Note: Diluent Lot #[id number] Exp:04/05/2019 Manuf;[id number] Note: vis given Admin Note: VIS Admin Note: VIS - Admin Note: vis given 05/09/201264537Tmquc Note: vis 08/09/097Admin Note: VIS dmin Note: [...] Gm, 11 Refills, Maintenance, 09/23/21 11:12:00 EST, [place], [facility], Partial fill upon patient request [...] syndrome, Active severe(Confirmed) 1PCODY Torres; Christine Tellez HAND COMPOSITOR ELECTRICIAN CONSTRUCTOR SUPERVISOR; [phone]; CSI [address] [facility] Vital Signs Most recent to oldest [Reference Range]: 1 Oxygen Saturation [94-100 %] 98 % (03/09/22 8:12 PM) Pulse Rate [55-90 bpm] 126 bpm *H* (03/09/22 8:12 PM) Mode of Delivery (Oxygen) Room air (03/09/22 8:12 PM) Social History Social History Type Response Smoking Status Never smoker; Tobacco user i n household: Yes entered on: 09/28/17 Sex
--- OUTSIDE RECORDS SUMMARY | 2022-12-20 12:09 | XMS_ITS | Continuity of Care Document ---
:2002 Author Organization [facility] Address [address] [place] [address]- Care Team Providers Name Role Phone Renea Puga MD Primary Care Physician [facility] Date(s): 03/10/22 - 04/09/[address] [address]- Allergies, Adverse Reactions, Alerts No Known Allergies [...] term) 02 Given 1Admin Note: Diluent Lot #[id number] Exp:04/05/2019 Manuf;Vqkys7Hmxxp Note: vis given Admin Note: VIS Admin Note: VIS - Admin Note: vis given 05/09/201253438Ynnqq Note: vis dmin Note: VIS dmin Note: vis given Medications albuterol 0.083% inhalation solution 3 mL, Inhalation, Every 6 hours, PRN NEEDED FOR WHEEZING/SHORTNESS OF BREATH, # 150 mL, 5 Refills, Maintenance, 12/08/21 8:28:00 EST, [facility]/pharmacy #1972, 175.5, cm, 10/20/21 17:41:00 EST, Height [...] Gm, 11 Refills, Maintenance, 09/23/21 11:12:00 EST, [place], [facility]/pharmacy #1972, Partial fill upon patient request if the prescription is for a schedule II opioiddrug., 1 sprays Nares, Both Daily in AM, 175.5, c... Start Date: 09/23/21 Status: OrderedFlovent Diskus 100 mcg/inh inhalation powder 1 puffs, Inhalation, 2 times a day, # 60 each, 11 Refills, Maintenance, 09/23/21 11:11:00 EST, [place], [facility]/pharmacy #1972, Partial fill upon patient [...] syndrome, Active severe(Confirmed) 1PCODY Torres; Christine Tellez COOK RELIEF [facility]; [phone]; CSI [address] [place] Social History Social History Type Response Smoking Status Never smoker; Tobacco user i n household: Yes entered on: 09/28/17 Sex
--- OUTSIDE RECORDS SUMMARY | 2022-12-20 12:09 | XMS_ITS | Continuity of Care Document ---
:2002 Author Organization [facility] Address [address] [place] [address]- Care Team Providers Name Role Phone Renea Puga MD Primary Care Physician [facility] Date(s): 09/19/21 - 10/19/[address] [address]- Allergies, Adverse Reactions, Alerts Substance Reaction Severity [...] term) 02 Given 1Admin Note: Diluent Lot #[id number] Exp:04/05/2019 Manuf;Ihplh2Hhzmv Note: vis given Admin Note: VIS Admin Note: VIS - Admin Note: vis given 05/09/201286719Zspqc Note: vis dmin Note: VIS dmin Note: vis given Medications Albuterol (Eqv-ProAir HFA) 90 mcg/inh inhalation aerosol 2 puffs, Inhalation, Every 6 hours, # 6.7 Gm, 11 Refills, Maintenance, 09/23/21 11:12:00 [facility], [facility]/pharmacy #1972, Partial fill upon patient request if [...] Gm, 11 Refills, Maintenance, 09/23/21 11:12:00 EST, [place], [facility]/pharmacy #1972, Partial fill upon patient request if [...] Pedi Active Endo(Confirmed) 1PCODY Torres; Christine Tellez CUT OFF [facility]; [phone]; CSI [address] [place] Social History Social History Type Response Smoking Status Never smoker; Tobacco user i n household: Yes entered on: 09/28/17 Sex
--- OUTSIDE RECORDS SUMMARY | 2022-12-20 12:09 | XMS_ITS | Continuity of Care Document ---
:2002 Author Organization [facility] Address [address] [place] [address]- Care Team Providers Name Role Phone Renea Puga MD Primary Care Physician [facility] Date[facility]s): 12/24/20 - 01/23/[address] [address] Allergies, Adverse Reactions, Alerts Substance Reaction Severity [...] term) 02 Given 1Admin Note: Diluent Lot #[id number] Exp:04/05/2019 Manuf;[id number] Note: vis given Admin Note: VIS Admin Note: VIS - Admin Note: vis given 05/09/201288676Dbgqt Note: vis dmin Note: VIS dmin Note: [...] Pedi Active Endo(Confirmed) 1PCODY Torres; Christine Tellez INTERACTIVE VIDEO TECHNICIAN SUPERINTENDENT MARINE; [phone]; CSI [address] Social History Social History Type Response Smoking Status Never smoker; Tobacco user i n household: Yes entered on: 09/28/17 Sex
--- OUTSIDE RECORDS SUMMARY | 2022-12-20 12:09 | XMS_ITS | Continuity of Care Document ---
:2002 Author Organization [facility] Address [address] [place] [address]- Care Team Providers Name Role Phone Renea Puga MD Primary Care Physician [facility] Date(s): 02/11/22 - 03/13/[address] [address]- Allergies, Adverse Reactions, Alerts No Known Allergies [...] term) 02 Given 1Admin Note: Diluent Lot #[id number] Exp:04/05/2019 Manuf;[id number] Note: vis given Admin Note: VIS Admin Note: VIS - Admin Note: vis given 05/09/201221935Wahqq Note: vis dmin Note: VIS dmin Note: vis given Medications albuterol 0.083% inhalation solution 3 mL, Inhalation, Every 6 hours, PRN NEEDED FOR WHEEZING/SHORTNESS OF BREATH, # 150 mL, 5 Refills, Maintenance, 12/08/21 8:28:00 EST, [facility]/pharmacy #1972, 175.5, cm, 10/20/21 17:41:00 EST, [...] Gm, 11 Refills, Maintenance, 09/23/21 11:12:00 EST, [place], [facility]/pharmacy #1972, Partial fill upon patient request if the prescription is for a schedule II opioiddrug., 1 sprays Nares, Both Daily in AM, 175.5, c... Start Date: 09/23/21 Status: OrderedFlovent Diskus 100 mcg/inh inhalation powder 1 puffs, Inhalation, 2 times a day, # 60 each, 11 Refills, Maintenance, 09/23/21 11:11:00 EST, [place], [facility]/pharmacy #1972, Partial fill upon patient request [...] severe(Confirmed) 1PCODY Torres; Christine Tellez DIRECTOR OF STRATEGIC MARKETING [facility]; [phone]; CSI [address] [place] Social History Social History Type Response Smoking Status Never smoker; Tobacco user i n household: Yes entered on: 09/28/17 Sex
--- OUTSIDE RECORDS SUMMARY | 2022-12-20 12:10 | XMS_ITS | Continuity of Care Document ---
:2002 Author Organization [facility] Address [address] [place] [address]- Care Team Providers Name Role Phone Renea Puga MD Primary Care Physician Encounter [facility] Date(s): 09/18/21 - 10/19/[address] [address]- Encounter Diagnosis Mild intermittent asthma with exacerbation (Discharge Diagnosis) - 09/19/21 Attending Physician: Radha Garcia MD Admitting Physician: Radha Garcia MD Allergies, Adverse Reactions, Alerts Substance Reaction [...] term) 02 Given 1Admin Note: Diluent Lot #[id number] Exp:04/05/2019 Manuf;[id number] Note: vis given Admin Note: VIS Admin Note: VIS - Admin Note: vis given 05/09/201200233Alxtc Note: vis 08/09/097Admin Note: VIS dmin Note: [...] Gm, 11 Refills, Maintenance, 09/23/21 11:12:00 EST, [place], [facility], Partial fill upon patient request [...] Refills, Maintenance, 09/23/21 11:12:00 EST, [place], [facility]/pharmacy #1972, Partial fill upon patient request if [...] follows with Pedi Active Endo(Confirmed) 1Padrienne Puri, RNCS; Christine Tellez FIELD ADJUSTER ELECTRONIC SERVICE TECHNICIAN; [phone]; CSI [address] Diagnosis Diagnosis Type Effective Dates Health Clinical Infor mant Status Service Mild intermittent Discharge 09/19/21 asthma with Diagnosis exacerbation Social History Social History Type Response Smoking Status Never smoker; Tobacco user i n household: Yes entered on: 09/28/17 Sex
--- OUTSIDE RECORDS SUMMARY | 2022-12-20 12:10 | XMS_ITS | Continuity of Care Document ---
:2002 Author Organization [facility] Address [address] [place] [address]- Care Team Providers Name Role Phone Renea Puga MD Primary Care Physician [facility] Date[facility]s): 03/23/22 - 04/22/[address] [address]- Attending Physician: Hattie Cardenas Admitting Physician: Hattie [...] term) 02 Given 1Admin Note: Diluent Lot #[id number] Exp:04/05/2019 Manuf;Zzmvm9Exljm Note: vis given Admin Note: VIS Admin Note: VIS - Admin Note: vis given 05/09/201271805Ovnfo Note: vis 08/09/097Admin Note: VIS dmin Note: [...] Gm, 11 Refills, Maintenance, 09/23/21 11:12:00 EST, [place], [facility], Partial fill upon patient request [...] syndrome, Active severe(Confirmed) 1PCODY Torres; Christine Tellez RETAIL ANALYTICS MANAGER [facility]; [phone]; CSI [address] Social History Social History Type Response Smoking Status Never smoker; Tobacco user i n household: Yes entered on: 09/28/17 Sex
--- OUTSIDE RECORDS SUMMARY | 2022-12-20 12:10 | XMS_ITS | Continuity of Care Document ---
:2002 Author Organization [facility] Address [address] [place] [address]- Care Team Providers Name Role Phone Renea Puga MD Primary Care Physician Encounter [facility] Date(s): 02/02/22 - 03/04/22 [facility] [address] [place] [address]- Allergies, Adverse Reactions, Alerts No Known Allergies [...] term) 02 Given 1Admin Note: Diluent Lot #[id number] Exp:04/05/2019 [facility];Kesup4Bygia Note: vis given Admin Note: VIS Admin Note: VIS - Admin Note: vis given 05/09/201295706Rxlev Note: vis dmin Note: VIS dmin Note: vis given Medications albuterol 0.083% inhalation solution 3 mL, Inhalation, Every 6 hours, PRN NEEDED FOR WHEEZING/SHORTNESS OF BREATH, # 150 mL, 5 Refills, Maintenance, 12/08/21 8:28:00 EST, [facility]/pharmacy #1972, 175.5, cm, 10/20/21 17:41:00 [...] 11 Refills, Maintenance, 09/23/21 11:12:00 EST, [place], [facility], Partial fill upon patient request [...] Active severe(Confirmed) 1PCODY Torres; Christine Tellez MSW [facility]; [phone]; CSI [address] [place] Social History Social History Type Response Smoking Status Never smoker; Tobacco user i n household: Yes entered on: 09/28/17 Sex
== END 2022-12-20 12:57 | disposition home or self-care (01) ==
PROVIDERS: Emergency Provider Emergency Medicine Emergency Medical Services
DX: M25.562 Pain in left knee (principal)
CPT/HCPCS: 73564; 99283

== ENCOUNTER 2022-12-29 09:41 | Outpatient (REF) | payer OTHER, SELFPAY ==
--- NOTE | ~2022-12-29 | XR_ITS ---
EXAMINATION: XR KNEE AP STANDING CLINICAL INFORMATION: Pain COMPARISON: 12/20/2022 TECHNIQUE: AP bilateral standing view of the knees was obtained. [place] view of the left knee. FINDINGS: Left knee: No fracture or subluxation. Compartmental joint spaces are maintained. Alignment maintained. The soft tissues appear unremarkable. Right knee: On the single frontal view there is no fracture or malalignment. Medial and lateral compartmental joint spaces are maintained. XR/XR knee LT 1V IMPRESSION: Unremarkable appearance of the knees.
--- NOTE | ~2022-12-29 | XR_ITS ---
EXAMINATION: XR KNEE AP STANDING CLINICAL INFORMATION: Pain COMPARISON: 12/20/2022 TECHNIQUE: AP bilateral standing view of the knees was obtained. [place] view of the left knee. FINDINGS: Left knee: No fracture or subluxation. Compartmental joint spaces are maintained. Alignment maintained. The soft tissues appear unremarkable. Right knee: On the single frontal view there is no fracture or malalignment. Medial and lateral compartmental joint spaces are maintained. XR/XR knee standing BI IMPRESSION: Unremarkable appearance of the knees.
== END 2022-12-29 09:42 | disposition home or self-care (01) ==
LOC: HO.HOSX 09:41
PROVIDERS: Visit Provider Physician Assistant
DX: S80.02XA Contusion of left knee, initial encounter (principal)
CPT/HCPCS: 73560; 73565; 99202

== ENCOUNTER 2023-01-04 19:12 | Emergency (ER) | payer OTHER, SELFPAY ==
--- NOTE | ~2023-01-04 | CT_ITS ---
EXAMINATION: CT ABDOMEN AND PELVIS WITHOUT CONTRAST CLINICAL INFORMATION: Blood in urine. Suprapubic pain. COMPARISON: None. TECHNIQUE: Multidetector volumetric imaging was performed from the superior aspect of the liver through the pubic symphysis. Sagittal and coronal reformatted images were obtained on the technologist's workstation. This CT examination was performed using dose optimization techniques as appropriate, variously including the following: *Automated exposure control *Adjustment of mA and/or kV according to patient size (this includes techniques or standardized protocols for targeted exams where dose is matched to indication/reason for exam; i.e. extremities or head) *Use of iterative reconstruction technique DLP: 1200 mGy-cm FINDINGS: The lack of intravenous contrast limits evaluation of the solid visceral organs including the liver, spleen, pancreas, and kidneys. LUNG BASES: No focal consolidation or pleural effusion. LIVER, GALLBLADDER, AND BILIARY TREE: The liver is enlarged measuring 20.5 cm craniocaudally and demonstrates decreased attenuation suggesting hepatic steatosis. No discrete focal liver lesions are noted in this limited noncontrast examination. Normal appearance of the gallbladder. No biliary ductal dilatation. PANCREAS: Unremarkable. SPLEEN: Unremarkable. ADRENAL GLANDS: Unremarkable. KIDNEYS AND URETERS: The kidneys are normal in size, shape, and attenuation. No hydronephrosis, hydroureter, or calculi seen. No perinephric stranding. BLADDER: Partially underdistended limiting assessment for wall thickening, however despite this limitation, there appears to be diffuse wall thickening with subtle perivesical fat stranding. GASTROINTESTINAL TRACT: The stomach and the small bowel are nondilated. Normal appendix. No pericolonic inflammatory changes or evidence to suspect bowel obstruction. ABDOMINAL WALL: No significant hernia is appreciated. LYMPH NODES: Scattered slightly prominent mesentery and retroperitoneal lymph nodes not meeting pathological size criteria, nonspecific. VASCULAR: Limited noncontrast examination. Abdominal aorta is of normal diameter. PELVIC VISCERA: Unremarkable. OSSEOUS STRUCTURES: No acute or aggressive appearing osseous abnormalities. CT/CT abdomen pelvis wo IV con IMPRESSION: 1. Bladder is partially underdistended limiting assessment for wall thickening, however despite this limitation, there appears to be diffuse wall thickening and subtle perivesical fat stranding suggesting cystitis. Correlate with urinalysis. 2. No nephrolithiasis or hydronephrosis. 3. Hepatomegaly and hepatic steatosis.
[2023-01-04 20:28] VITALS: BP 149/77; PULSE 125; RESP 18; TEMP 36.2; O2SAT 100; BMI 51.7
--- NOTE | 2023-01-04 20:30 | ED_ITS ---
HPI - Male Genitourinary General Chief complaint: Urogenital-Male <GABE Patel Last Filed: 01/04/23 20:32> Stated complaint: urinating blood <GABE Patel Last Filed: 01/04/23 20:32> Time Seen by Provider: 01/04/23 22:53 <GABE Patel Last Filed: 01/04/23 20:32> Source: patient <GABE Stevenson Last Filed: 01/05/23 01:19> Mode of arrival: ambulatory <GABE Stevenson Last Filed: 01/05/23 01:19> Limitations: no limitations <GABE Stevenson Last Filed: 01/05/23 01:19> History of Present Illness HPI Narrative: 22-year-old male history of obesity presenting to the emergency department for evaluation of hematuria times x2 days. Patient also reporting dysuria, urinary frequency, urgency, suprapubic discomfort, bladder spasming and at times he is finding it difficult to make it to the bathroom due to urinary urgency. Patient tells me that this is never happened to him before. Denies flank pain, fevers, chills, nausea, vomiting, headache, vision changes, dizziness, weakness, chest pain and shortness of breath. Patient has never seen a urologist. Patient does report that over the past 2-3 weeks he has been having intermittent chest pain however not having it at this time he is going to get seen by his PCP for this. <GABE Stevenson Last Filed: 01/05/23 01:19> Related Data Home medications: Previous Rx's Medication Instructions Recorded levofloxacin 750 mg tablet 750 mg PO DAILY 7 days #7 tabs 01/04/23 <GABE Patel Last Filed: 01/04/23 20:32> Allergies/Adverse reactions: Allergies Allergy/AdvReac Type Severity Reaction Status Date / Time No Known Allergies Allergy Verified 12/29/22 08:35 <GABE Patel Last Filed: 01/04/23 20:32> Review of Systems Review of Systems: Constitutional : No Weight loss, No Fever, No Chills, No Fatigue, No Malaise ENT/Mouth : No sore throat, No Rhinorrhea Eyes: No Eye Pain, No Swelling, No Redness Cardiovascular : + Chest Pain, No SOB, No Dyspnea on Exertion, No Orthopnea, No Edema, No Palpitations Respiratory : No Cough, No Sputum, No Wheezing Gastrointestinal : No Nausea, No Vomiting, No Diarrhea, No Constipation, + abdominal Pain, No Hematochezia, No Melena Genitourinary : + Dysuria, + Urinary Frequency, + Hematuria, Musculoskeletal : No joint pain, No Myalgias, No Joint Swelling Skin : No Skin Lesions, No rash Neuro : No Weakness, No Numbness, No Dizziness, No Headache Psych : No Anxiety/Panic, No Depression All other systems reviewed and are negative <GABE Stevenson - Last Filed: 01/05/23 01:19> Yes all other systems are reviewed and are negative <GABE Stevenson - Last Filed: 01/05/23 01:19> [facility] Past Medical History Attestation statement: The following information was validated with the patient. <GABE Stevenson - Last Filed: 01/05/23 01:19> Source: old records reviewed and nursing notes reviewed <GABE Stevenson - Last Filed: 01/05/23 01:19> Medical History: Medical History History of high blood pressure <GABE Patel - Last Filed: 01/04/23 20:32> Social History Social History: Social History Alcohol intake: never Patient Tobacco Use Status: Never used Tobacco Advance Directives: No Advance Directives Information Provided: Yes Current occupational status: unemployed Current occupation: left hand dominant <GABE Patel - Last Filed: 01/04/23 20:32> Physical Exam Vital Signs: Vital Signs: Last Vital Signs Temp 98.4 F 01/04/23 22:15 Pulse 135 H 01/04/23 22:15 Resp 16 01/04/23 22:15 BP 137/74 01/04/23 22:15 Pulse Ox 98 01/04/23 22:15 O2 Del Method 01/04/23 22:15 BMI result Body Mass Index 51.7 <GABE Patel - Last Filed: 01/04/23 20:32> Vital Signs: Last Vital Signs Temp 98.4 F 01/04/23 22:15 Pulse 135 H 01/04/23 22:15 Resp 16 01/04/23 22:15 BP 137/74 01/04/23 22:15 Pulse Ox 98 01/04/23 22:15 O2 Del Method 01/04/23 22:15 BMI result Body Mass Index 51.7 Vital signs stable <GABE Stevenson - Last Filed: 01/05/23 01:19> Appearance: Alert.? Oriented X3.? No acute distress.? Head: Normocephalic, atraumatic, no step-offs or deformities Eyes: Pupils equal, round and reactive to light.? ENT: Pharynx normal.? Neck: Normal inspection.? Neck supple.? CVS: Normal heart rate and rhythm.? Pulses normal.? Respiratory: No respiratory distress.? Breath sounds normal.? Abdomen: Soft and nontender.? Skin: Skin warm and dry.? Normal skin color.? Normal skin turgor.? Extremities: No lower extremity edema.? No calf ttp. 5/5 strength to bilateral upper and lower extremities Back: No midline tenderness, no C-spine tenderness, full range of motion, no CVA tenderness bilaterally Neuro: Oriented X 3.? No motor deficit.? No sensory deficit. CN 2-12 intact <GABE Stevenson - Last Filed: 01/05/23 01:19> Course Course Course Narrative: RME - 22 yo male with history of HTN, pre-DM who presents to the ER for evaluation of dysuria x2 days and new onset gross hematuria today at 7am with foul smelling urine. No trauma. Reports mild back pain, +nausea. +bladder pain. Sexually active w/ women, no urethral discharge or concern for STI. Plan - check UA to r/o UTI <GABE Patel - Last Filed: 01/04/23 20:32> Reevaluation(s) Reevaluation #1: UA grossly infected. CT of the abdomen pelvis with bladder under distended however there is bladder wall thickening concerning for possible cystitis. No nephrolithiasis or hydronephrosis. Patient well-appearing. Labs pending. <GABE Stevenson - Last Filed: 01/05/23 01:19> Time: 00:08 <GABE Stevenson - Last Filed: 01/05/23 01:19> Reevaluation #2: CBC with slight leukocytosis likely secondary to UTI. I do not suspect acute pyelonephritis. <GABE Stevenson - Last Filed: 01/05/23 01:19> Time: 01:02 <GABE Stevenson - Last Filed: 01/05/23 01:19> Reevaluation #3: Chemistry with no acute findings requiring intervention. Troponin negative, EKG nonischemic. Patient without chest pain at this time unlikely ACS. Patient will be discharged home with Levaquin, 1st dose will be given here. Gave him referral to Urology. Educated patient on diagnosis and treatment plan, answered all question, patient verbalizes understanding. At this time patient will be discharged home, advised to return with new or worsening symptoms. Educated on worrisome signs and symptoms and when to return. At this time I feel comfortable discharge home. <GABE Stevenson - Last Filed: 01/05/23 01:19> Time: 01:19 <GABE Stevenson - Last Filed: 01/05/23 01:19> Medical Decision Making Medical Decision Making MDM Narrative: 22-year-old male presents with hematuria, urinary frequency, urgency, dy suria, suprapubic tenderness and bladder spasming x2 days. Also has been experiencing intermittent chest discomfort over the past 2-3 weeks however has follow-up with his PCP for this. Physical exam benign Likely bloody cystitis versus UTI. Unlikely pyelonephritis, obstructing uropathy. Chest pain likely anxiety unlikely ACS, PE patient without significant risk factors, is not reporting chest pain or shortness of breath at this time. Plan at this time urine, basic labs, CT of the abdomen pelvis rule out obstructing uropathy. <GABE Stevenson - Last Filed: 01/05/23 01:19> Differential Diagnosis Differential Diagnoses: The differential diagnosis associated with the presentation includes <GABE Stevenson - Last Filed: 01/05/23 01:19> Likely bloody cystitis versus UTI. Unlikely pyelonephritis, obstructing uropathy. Chest pain likely anxiety unlikely ACS, PE patient without significant risk factors, is not reporting chest pain or shortness of breath at this time. <GABE Stevenson - Last Filed: 01/05/23 01:19> Admission/Observation Consideration of admission/observation: Escalation of care including admission/observation considered <GABE Stevenson - Last Filed: 01/05/23 01:19> Lab Data MDM Lab Attestation statement: I reviewed the patient's lab results. <GABE Stevenson - Last Filed: 01/05/23 01:19> Result Diagrams: 01/05/23 00:41 01/05/23 00:41 <GABE Patel - Last Filed: 01/04/23 20:32> Labs: Lab Results 01/04/23 01/05/23 01/05/23 Range/Units 20:50 00:41 00:41 WBC 14.1 H (4.8-10.8) X10*3/uL RBC 5.83 H (4.60-5.80) X10*6/uL Hgb 14.1 (14.0-18.0) g/dl Hct 44.7 (42.0-52.0) % MCV 76.7 L (80.0-98.0) fL MCH 24.2 L (27.0-33.0) pg MCHC 31.5 (31.0-36.0) g/dl RDW 15.2 (11.0-16.0) % Plt Count 312 (160-400) X10*3/uL MPV 10.3 (9.4-12.4) fL Immature Gran % (Auto) 0.2 (0.0-0.4) % Neut % (Auto) 71.0 (45-73) % Lymph % (Auto) 22.6 (20-40) % [place] % (Auto) 4.1 (2-11) % Eos % (Auto) 1.8 (0-4) % Baso % (Auto) 0.3 (0-2) % Lymph # (Auto) 3.2 (1.2-4.9) X10*3/uL [place] # (Auto) 0.6 (0.1-1.2) X10*3/uL Eos # (Auto) 0.3 (0.0-0.4) X10*3/uL Baso # (Auto) 0.0 (0.0-0.2) X10*3/uL Abs Immat Gran (auto) 0.03 (0.00-0.03) X10*3/uL Absolute Neuts (auto) 10.0 H (2.0-8.3) x10*3/uL Absolute Nucleated RBC 0.000 (0.0-0.012) X10*3/uL Nucleated RBC % (auto) 0.0 (0.0-0.2) /100WBC Sodium 140 (135-145) mmol/L Potassium 4.0 (3.3-5.1) mmol/L Chloride 104 (96-108) mmol/L Carbon Dioxide 25 (22-29) mmol/L Anion Gap 15 (12-20) BUN 19 H (9-16) mg/dL Creatinine 0.88 (0.5-1.4) mg/dL Estim Creat Clear Calc 200.6 Estimated GFR > 60 Random Glucose 94 (60-115) mg/dL Calcium 9.6 (8.4-10.2) mg/dL Total Bilirubin 0.5 (0.0-1.0) mg/dL AST 21 (5-37) U/L ALT 46 H (0-40) U/L Alkaline Phosphatase 81 (39-117) U/L Troponin I High Sens (<3.5-35.0) ng/L Total Protein 8.2 H (6.5-8.0) g/dL Albumin 4.6 (3.5-5.0) g/dL Urine Color [place] A Urine Appearance Turbid Urine pH 6.0 (5.0-9.0) Ur Specific [place] 1.020 (1.005-1.025) Urine Protein 100 (2+) H (Neg-Trace) mg/dL Urine Glucose (UA) Negative (Negative) mg/dL Urine Ketones Negative (Negative) mg/dL Urine Blood Large (3+) H (Negative) Urine Nitrite Positive H (Negative) Ur Leukocyte Esterase Large (3+) H (Negative) Urine RBC >20 H (0-2) /HPF Urine WBC >50 H (0-5) /HPF Ur Squamous Epith Cells 0-2 (0-2) /HPF Urine Bacteria 2+ (None Seen) Hyaline Casts 0-2 (0-2) /LPF 01/05/23 Range/Units 00:41 WBC (4.8-10.8) X10*3/uL RBC (4.60-5.80) X10*6/uL Hgb (14.0-18.0) g/dl Hct (42.0-52.0) % MCV (80.0-98.0) fL MCH (27.0-33.0) pg MCHC (31.0-36.0) g/dl RDW (11.0-16.0) % Plt Count (160-400) X10*3/uL MPV (9.4-12.4) fL Immature Gran % (Auto) (0.0-0.4) % Neut % (Auto) (45-73) % Lymph % (Auto) (20-40) % [place] % (Auto) (2-11) % Eos % (Auto) (0-4) % Baso % (Auto) (0-2) % Lymph # (Auto) (1.2-4.9) X10*3/uL [place] # (Auto) (0.1-1.2) X10*3/uL Eos # (Auto) (0.0-0.4) X10*3/uL Baso # (Auto) (0.0-0.2) X10*3/uL Abs Immat Gran (auto) (0.00-0.03) X10*3/uL Absolute Neuts (auto) (2.0-8.3) x10*3/uL Absolute Nucleated RBC (0.0-0.012) X10*3/uL Nucleated RBC % (auto) (0.0-0.2) /100WBC Sodium (135-145) mmol/L Potassium (3.3-5.1) mmol/L Chloride (96-108) mmol/L Carbon Dioxide (22-29) mmol/L Anion Gap (12-20) BUN (9-16) mg/dL Creatinine (0.5-1.4) mg/dL Estim Creat Clear Calc Estimated GFR Random Glucose (60-115) mg/dL Calcium (8.4-10.2) mg/dL Total Bilirubin (0.0-1.0) mg/dL AST (5-37) U/L ALT (0-40) U/L Alkaline Phosphatase (39-117) U/L Troponin I High Sens < 3.5 (<3.5-35.0) ng/L Total Protein (6.5-8.0) g/dL Albumin (3.5-5.0) g/dL Urine Color Urine Appearance Urine pH (5.0-9.0) Ur Specific [place] (1.005-1.025) Urine Protein (Neg-Trace) mg/dL Urine Glucose (UA) (Negative) mg/dL Urine Ketones (Negative) mg/dL Urine Blood (Negative) Urine Nitrite (Negative) Ur Leukocyte Esterase (Negative) Urine RBC (0-2) /HPF Urine WBC (0-5) /HPF Ur Squamous Epith Cells (0-2) /HPF Urine Bacteria (None Seen) Hyaline Casts (0-2) /LPF <GABE Patel - Last Filed: 01/04/23 20:32> Lab Results 01/04/23 01/05/23 01/05/23 Range/Units 20:50 00:41 00:41 WBC 14.1 H (4.8-10.8) X10*3/uL RBC 5.83 H (4.60-5.80) X10*6/uL Hgb 14.1 (14.0-18.0) g/dl Hct 44.7 (42.0-52.0) % MCV 76.7 L (80.0-98.0) fL MCH 24.2 L (27.0-33.0) pg MCHC 31.5 (31.0-36.0) g/dl RDW 15.2 (11.0-16.0) % Plt Count 312 (160-400) X10*3/uL MPV 10.3 (9.4-12.4) fL Immature Gran % (Auto) 0.2 (0.0-0.4) % Neut % (Auto) 71.0 (45-73) % Lymph % (Auto) 22.6 (20-40) % [place] % (Auto) 4.1 (2-11) % Eos % (Auto) 1.8 (0-4) % Baso % (Auto) 0.3 (0-2) % Lymph # (Auto) 3.2 (1.2-4.9) X10*3/uL [place] # (Auto) 0.6 (0.1-1.2) X10*3/uL Eos # (Auto) 0.3 (0.0-0.4) X10*3/uL Baso # (Auto) 0.0 (0.0-0.2) X10*3/uL Abs Immat Gran (auto) 0.03 (0.00-0.03) X10*3/uL Absolute Neuts (auto) 10.0 H (2.0-8.3) x10*3/uL Absolute Nucleated RBC 0.000 (0.0-0.012) X10*3/uL Nucleated RBC % (auto) 0.0 (0.0-0.2) /100WBC Sodium 140 (135-145) mmol/L Potassium 4.0 (3.3-5.1) mmol/L Chloride 104 (96-108) mmol/L Carbon Dioxide 25 (22-29) mmol/L Anion Gap 15 (12-20) BUN 19 H (9-16) mg/dL Creatinine 0.88 (0.5-1.4) mg/dL Estim Creat Clear Calc 200.6 Estimated GFR > 60 Random Glucose 94 (60-115) mg/dL Calcium 9.6 (8.4-10.2) mg/dL Total Bilirubin 0.5 (0.0-1.0) mg/dL AST 21 (5-37) U/L ALT 46 H (0-40) U/L Alkaline Phosphatase 81 (39-117) U/L Troponin I High Sens (<3.5-35.0) ng/L Total Protein 8.2 H (6.5-8.0) g/dL Albumin 4.6 (3.5-5.0) g/dL Urine Color [place] A Urine Appearance Turbid Urine pH 6.0 (5.0-9.0) Ur Specific [place] 1.020 (1.005-1.025) Urine Protein 100 (2+) H (Neg-Trace) mg/dL Urine Glucose (UA) Negative (Negative) mg/dL Urine Ketones Negative (Negative) mg/dL Urine Blood Large (3+) H (Negative) Urine Nitrite Positive H (Negative) Ur Leukocyte Esterase Large (3+) H (Negative) Urine RBC >20 H (0-2) /HPF Urine WBC >50 H (0-5) /HPF Ur Squamous Epith Cells 0-2 (0-2) /HPF Urine Bacteria 2+ (None Seen) Hyaline Casts 0-2 (0-2) /LPF 01/05/23 Range/Units 00:41 WBC (4.8-10.8) X10*3/uL RBC (4.60-5.80) X10*6/uL Hgb (14.0-18.0) g/dl Hct (42.0-52.0) % MCV (80.0-98.0) fL MCH (27.0-33.0) pg MCHC (31.0-36.0) g/dl RDW (11.0-16.0) % Plt Count (160-400) X10*3/uL MPV (9.4-12.4) fL Immature Gran % (Auto) (0.0-0.4) % Neut % (Auto) (45-73) % Lymph % (Auto) (20-40) % [place] % (Auto) (2-11) % Eos % (Auto) (0-4) % Baso % (Auto) (0-2) % Lymph # (Auto) (1.2-4.9) X10*3/uL [place] # (Auto) (0.1-1.2) X10*3/uL Eos # (Auto) (0.0-0.4) X10*3/uL Baso # (Auto) (0.0-0.2) X10*3/uL Abs Immat Gran (auto) (0.00-0.03) X10*3/uL Absolute Neuts (auto) (2.0-8.3) x10*3/uL Absolute Nucleated RBC (0.0-0.012) X10*3/uL Nucleated RBC % (auto) (0.0-0.2) /100WBC Sodium (135-145) mmol/L Potassium (3.3-5.1) mmol/L Chloride (96-108) mmol/L Carbon Dioxide (22-29) mmol/L Anion Gap (12-20) BUN (9-16) mg/dL Creatinine (0.5-1.4) mg/dL Estim Creat Clear Calc Estimated GFR Random Glucose (60-115) mg/dL Calcium (8.4-10.2) mg/dL Total Bilirubin (0.0-1.0) mg/dL AST (5-37) U/L ALT (0-40) U/L Alkaline Phosphatase (39-117) U/L Troponin I High Sens < 3.5 (<3.5-35.0) ng/L Total Protein (6.5-8.0) g/dL Albumin (3.5-5.0) g/dL Urine Color Urine Appearance Urine pH (5.0-9.0) Ur Specific [place] (1.005-1.025) Urine Protein (Neg-Trace) mg/dL Urine Glucose (UA) (Negative) mg/dL Urine Ketones (Negative) mg/dL Urine Blood (Negative) Urine Nitrite (Negative) Ur Leukocyte Esterase (Negative) Urine RBC (0-2) /HPF Urine WBC (0-5) /HPF Ur Squamous Epith Cells (0-2) /HPF Urine Bacteria (None Seen) Hyaline Casts (0-2) /LPF <GABE Stevenson - Last Filed: 01/05/23 01:19> Independent Interpretation I performed an independent interpretation of an: CT Scan (CT/CT abdomen pelvis wo IV con IMPRESSION: 1. Bladder is partially underdistended limiting assessment for wall thickening, however despite this limitation, there appears to be diffuse wall thickening and subtle perivesical fat stranding suggesting cystitis. Correlate with urinalysis. 2. No nephrol) <GABE Stevenson Last Filed: 01/05/23 01:19> Radiology Impression Discussion of test interpretation with radiology: I have reviewed the radiologist's reading. <GABE Stevenson Last Filed: 01/05/23 01:19> Core Measures AMI core measures followed: Yes <GABE Stevenson Last Filed: 01/05/23 01:19> Measure exclusions: not indicated <GABE Stevenson - Last Filed: 01/05/23 01:19> Critical Care Time Critical Care Time Critical Care Time: No <GABE Stevenson - Last Filed: 01/05/23 01:19> Discharge Plan Discharge Clinical Impression: Urinary tract infection, Chest pain <GABE Patel - Last Filed: 01/04/23 20:32> Patient Disposition: Home, Self-Care <GABE Patel Last Filed: 01/04/23 20:32> Instructions: Chest Pain (ED), Urinary Tract Infection in Men (ED) <GABE Patel Last Filed: 01/04/23 20:32> Additional Instructions: Take your medications as prescribed. If you were prescribed antibiotics today, it is important that you take your medication to their entirety, do not skip any doses, do not finish them early. Follow-up with your primary care provider this week. Please follow-up with urology Return to the emergency department with new or worsening symptoms. Such as fevers, chills, chest pain, shortness of breath, nausea, vomiting, dizziness, headache, vision changes, lethargy In case of emergency call 911 Levofloxacin is a medication that belongs to a class called fluoroquinolones, this class of medications has a black box warning for tendon rupture, please to not exercise while taking these medications do not participate in strenuous exercises. If you start experiencing joint pain or pain to any tendons then you should immediately discontinue this medication and seek medical attention. CT/CT abdomen pelvis wo IV con IMPRESSION: 1.? Bladder is partially underdistended limiting assessment for wall thickening, however despite this limitation, there appears to be diffuse wall thickening and subtle perivesical fat stranding suggesting cystitis. Correlate with urinalysis. 2.? No nephrolithiasis or hydronephrosis. 3.? Hepatomegaly and hepatic steatosis. <GABE Patel Last Filed: 01/04/23 20:32> Prescriptions: New levofloxacin 750 mg tablet 750 mg PO DAILY 7 Days Qty: 7 0RF <GABE Patel - Last Filed: 01/04/23 20:32> Referrals: [facility] [place] Cardiovascular Services [Provider Group] - 1 week [facility] [place] Urology Services [Provider Group] - 2 days Physician,Unknown J [Primary Care Provider] - 2 days <GABE Patel - Last Filed: 01/04/23 20:32> Stand Alone Forms: Work/School Release <GABE Patel - Last Filed: 01/04/23 20:32>
[2023-01-04 21:39] LABS: Appearance Urine Turbid; Color Urine Orange; Glucose Urine UA Negative (Negative); Leukocyte Esterase Urine Large (3+) (Negative); Nitrite Urine Positive (Negative); UMIC TRIGGER UACC YES; Urine Blood Large (3+) (Negative); Urine Ketones Negative (Negative); Urine Protein 100 (2+) mg/dL (Neg-Trace)
[2023-01-04 21:49] LABS: Bacteria Urine 2+ (None Seen); Hyaline Casts Urine 0-2 /LPF (0-2); RBC Urine >20 /HPF (0-2); Squamous Epithelial Cell Urine 0-2 /HPF (0-2); UACC Culture Trigger YES; WBC Urine >50 /HPF (0-5)
[2023-01-04 22:15] VITALS: BP 137/74; PULSE 135; RESP 16; TEMP 36.9; O2SAT 98
--- NOTE | 2023-01-05 00:05 | ECG_ITS ---
Test Reason : CHEST PAIN Blood Pressure : / mmHG Vent. Rate : 091 BPM Atrial Rate : 091 BPM P-R Int : 164 ms QRS Dur : 092 ms QT Int : 360 ms P-R-T Axes : 031 080 023 degrees QTc Int : 442 ms Normal sinus rhythm Normal ECG No previous ECGs available Referred By: Mono Callahan Electronically Signed By:ESVIN FELIX MD
[2023-01-05 00:45] LABS: MANUAL DIFF FLAG NO
[2023-01-05 00:53] LABS: Basophils Percent Auto 0.3 % (0-2); Eosinophils Absolute Auto 0.3 X10*3/uL (0.0-0.4); Eosinophils Percent Auto 1.8 % (0-4); Hematocrit 44.7 % (42.0-52.0); Hemoglobin 14.1 g/dl (14.0-18.0); Imm Gran Abs Auto 0.03 X10*3/uL (0.00-0.03); Imm Gran Pct Auto 0.2 % (0.0-0.4); Lymphocytes Absolute Auto 3.2 X10*3/uL (1.2-4.9); Lymphocytes Percent Auto 22.6 % (20-40); Mean Corpuscular HGB Conc 31.5 g/dl (31.0-36.0); Mean Corpuscular Hemoglobin 24.2 pg (27.0-33.0); Mean Corpuscular Volume 76.7 fL (80.0-98.0); Mean Platelet Volume 10.3 fL (9.4-12.4); Monocytes Absolute Auto 0.6 X10*3/uL (0.1-1.2); Monocytes Percent Auto 4.1 % (2-11); Platelet Count 312 X10*3/uL (160-400); Red Blood Count 5.83 X10*6/uL (4.60-5.80); Red Cell Distribution Width 15.2 % (11.0-16.0); White Blood Count 14.1 X10*3/uL (4.8-10.8)
[2023-01-05 01:04] LABS: Alanine Aminotransferase 46 U/L (0-40); Albumin Level 4.6 g/dL (3.5-5.0); Alkaline Phosphatase 81 U/L (39-117); Anion Gap 15 (12-20); Aspartate Amino Transferase 21 U/L (5-37); Bilirubin Total 0.5 mg/dL (0.0-1.0); Blood Urea Nitrogen 19 mg/dL (9-16); Calcium 9.6 mg/dL (8.4-10.2); Carbon Dioxide 25 mmol/L (22-29); Chloride 104 mmol/L (96-108); Creatinine Clr Calc Pharmacy 200.6; Estimated Glomerular Filt Rate > 60; Glucose Random 94 mg/dL (60-115); Sodium 140 mmol/L (135-145); Total Protein 8.2 g/dL (6.5-8.0)
[2023-01-05 01:05] LABS: Troponin-I High Sensitivity < 3.5 ng/L (<3.5-35.0)
[2023-01-05] MEDS: levoFLOXacin 500 MG TABLET 750 MG PO (01:56)
== END 2023-01-05 01:59 | disposition home or self-care (01) ==
PROVIDERS: Physician Assistant; Emergency Provider Internal Medicine
DX: N39.0 Urinary tract infection, site not specified (principal); B96.20 Unspecified Escherichia coli [E. coli] as the cause of diseases classified elsewhere; R07.9 Chest pain, unspecified; I10 Essential (primary) hypertension
CPT/HCPCS: 36415; 74176; 80053; 81001; 81003; 84484; 85025; 87086; 87088; 87186; 93005; 99282; 99284

== ENCOUNTER 2023-02-01 11:02 | Outpatient (REF) | payer OTHER, SELFPAY ==
[2023-02-01 17:26] LABS: Urine Cytology See Pathology rpt
== END 2023-02-01 11:03 | disposition home or self-care (01) ==
LOC: HO.LAB 11:02
PROVIDERS: Visit Provider Urology
DX: R31.0 Gross hematuria (principal); N30.90 Cystitis, unspecified without hematuria; N32.89 Other specified disorders of bladder
CPT/HCPCS: 88112; 99202

== ENCOUNTER 2023-02-09 06:32 | Day surgery (SDC) | payer OTHER, SELFPAY ==
--- NOTE | ~2023-02-09 | FL_ITS ---
EXAMINATION: XR FLUOROSCOPY WITH IMAGES CLINICAL INFORMATION: Hydrodistention COMPARISON: CT abdomen and pelvis 01/04/2023 TECHNIQUE: Fluoroscopy Supervised By: Dr. Gudino. Fluoroscopy Time: 38 seconds. Cumulative Dose: 31.1 mGy. Images: 4. FINDINGS: There is contrast in the collecting systems. Right sided duplication is seen with fullness upper pole moiety. Left collecting system is unremarkable. FL/FL guidance in OR IMPRESSION: -Fluoroscopy for urologic procedures. 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
--- OUTSIDE RECORDS SUMMARY | 2023-02-09 06:35 | XMS_ITS | Continuity of Care Document ---
Author Name Unknown Organization [facility] ter Address [address] [place] [address]- Care Team Providers Care Batch Attendant Name Role Phone Renea Puga MD Primary Care Physician Encounter [facility] [place] Date(s): 12/02/22 - 01/01/[address] [address]- Allergies, Adverse Reactions, Alerts No Known Allergies Immunizations Given and Recorded Vaccine Date Status Refusal Reason Meningococcal Conjugate Vaccine 1 06/01/18 Given Meningococcal Conjugate Vaccine 07/26/14 Given influenza virus vaccine, inactivated 07/15/17 Give n influenza virus vaccine, inactivated 09/30/15 Give n influenza virus vaccine, inactivated 07/26/14 Give n influenza virus vaccine, inactivated 2 07/22/11 Gi miguelito influenza virus vaccine, inactivated 3 10/30/10 Gi miguelito influenza virus vaccine, inactivated 09/22/04 Give n influenza virus vaccine, inactivated 02 Give n influenza virus vaccine, inactivated 02 Give n Human Papillomavirus Vaccine 09/10/16 Given Human Papillomavirus Vaccine 09/30/15 Given Human Papillomavirus Vaccine 07/26/14 Given tetanus/diphtheria/pertussis, acel(Tdap) 07/26/14 Given Hepatitis A Pediatric Vaccine 4 07/04/12 Given Hepatitis A Pediatric Vaccine 08/20/07 Given Influenza Vaccine (oldterm) 5 07/04/12 Given Influenza Vaccine (oldterm) 09/22/04 Given Influenza Vaccine (oldterm) 02 Given Influenza Vaccine (oldterm) 02 Given influ virus vac, H1N1, inactive(oldterm) 6 09/12/09 Given Influenza Inactive (IM) (oldterm) 7 11/13/08 Given Diphth/Pertussis,Acel/Tetanus (oldterm) 08/20/07 G iven Varicella Virus Vaccine 8 12/02/06 Given Varicella Virus Vaccine 03/16/03 Given [...] Given Haemophilus B Conj Vaccine (oldterm) 03/16/03 Give n Haemophilus B Conj Vaccine (oldterm) 02 Give n Haemophilus B Conj Vaccine (oldterm) 02 Give n Haemophilus B Conj Vaccine (oldterm) 02 Give n Hepatitis B Vaccine (old term) 02 Given Hepatitis B Vaccine (old term) 02 Given Hepatitis B Vaccine (old term) 02 Given 1Admin Note: Diluent Lot #[id number] Exp:04/05/2019 [facility];[employer] 2Admin Note: vis given 06/02/11 3Admin Note: VIS 06/17/10 4Admin Note: VIS - 09/01/11 5Admin Note: vis given 05/09/2012 6Admin Note: vis 08/09/09 7Admin Note: VIS 8Admin Note: vis given Medications albuterol 0.083% inhalation solution 3 mL, Inhalation, Every 6 hours, PRN NEEDED FOR WHEEZING/SHORTNESS OF BREATH, # 150 mL, 5 Refills, Maintenance, 12/08/21 8:28:00 EST, [facility]/pharmacy #1972, 175.5, cm, 10/20/21 17:41:00 EST, Height Start Date: 12/08/21 Status: Ordered albuterol CFC free 90 mcg/inh inhalation aerosol 2, puffs, Inhalation, Every 6 hours, PRN, # 1 each, Refills 1, Tot. Refills 1, Maintenance, 10/09/22 14:07:00 EST, Route to Pharmacy Electronically, [id number], [facility]/pharmacy#1972, 175.5, cm, 01/21/22 14:00:00 EDT, Height Start Date: 10/09/22 Stop Date: 12/08/22 Status: Ordered Banophen 25 mg oral tablet TAKE 2 TABLETS BY MOUTH EVERY DAY AT BEDTIME *N/C* Start Date: 03/26/21 Status: Ordered busPIRone 5 mg oral tablet TAKE 1 TABLET BY MOUTH TWICE A DAY Start Date: 03/26/21 Status: Ordered Flonase 50 mcg/inh nasal spray 1 sprays, Nares, Both, Daily in AM, # 16 Gm, 11 Refills, Maintenance, 09/23/21 11:12:00 EST, [place],[facility]/pharmacy #1972, Partial fill upon patient request if the prescription is for a schedule II opioid drug., 1 sprays Nares, Both Daily in AM, 175.5, c... Start Date: 09/23/21 Status: Ordered Flovent Diskus 100 mcg/inh inhalation powder 1 puffs, Inhalation, 2 times a day, # 60 each, 11 Refills, Maintenance, 09/23/21 11:11:00 EST, Powder, [facility]/pharmacy #1972, Partial fill upon patient request if the prescription is for a schedule II opioid drug., 1 puffs Inhalation 2 times a day, 175.5... Start Date: 09/23/21 Status: Ordered Nebulizer/Compressor See Instructions, # 1 each, Maintenance, dx asthma use nebulizer q 4-6 hrs as needed, 09/23/21 11:13:00 EST, Supply, 175.5, cm, 09/23/21 10:40:00 EST, Height Start Date: 09/23/21 Status: Ordered ZyrTEC-D 5 mg-120 mg oral tablet, extended release 1 tablet, By Mouth, Every 24 hours, # 30 tablet, 2 Refills, Maintenance, 09/23/21 11:12:00 EST, ER Tablet, [facility]pharmacy #1972, Partial fill upon patient request if the prescription is for a schedule II opioid drug., 1 tablet By Mouth Every 24 hours,x3... Start Date: 09/23/21 Stop Date: 12/22/21 Status: Ordered Problem List Condition Confirmation Course Effective Dates Status H ealth Status Informant ADHD - Attention deficit disorder with hyperactivity Confirmed Active Anxiety disorder NOS Confirmed Active Mild Intermittent Asthma Confirmed Active Dysthymic disorder - follows with Parul Shea 1 Confirmed Active Elevated BP Confirmed Active Rash Confirmed Active Obesity - follows with Sina Starr Confirmed Active Obstructive sleep apnea syndrome, severe Confirmed Active Severe obesity Confirmed Active 1PCODY Torres; Christine Tellez SLICING MACHINE OPERATOR [facility]; [phone]; CSI [address] [facility] Social History Social History Type Response Smoking Status Never smoker; Tobacc o user in household: Yes entered on: 09/28/17 Sex Patient Care team information Care Team Personnel Name: Renea Puga MD Position: [facility] Resident Member Role: PCP Address: Address: [address] [place] [address]- Care Team Related Persons Name: BRISEYDA HUITRON Address: home [address] [place] [address] Name: DELGADO HUITRON Address: home [address] [place] [address] Name: JAMMIE HARRY Address: home [address] [place] [address]
--- OUTSIDE RECORDS SUMMARY | 2023-02-09 06:35 | XMS_ITS | Continuity of Care Document ---
Author Name Unknown Organization [facility] Address [address] [place] [address]- Care Team Providers Care Functional Director Name Role Phone Renea Puga MD Primary Care Physician Encounter [facility] Date(s): 11/05/22 - 01/01/[address] [address]- Attending Physician: Not on Staff, Attending MD [...] term) 02 Given 1Admin Note: Diluent Lot #[id number] [facility] 2Admin Note: vis given 06/02/11 3Admin Note: [...] 10/09/22 14:07:00 EST, Route to Pharmacy Electronically, [id number], [facility], 175.5, cm, 01/21/22 14:00:00 EDT, Height Start [...] Gm, 11 Refills, Maintenance, 09/23/21 11:12:00 EST, [place],[facility], Partial fill upon patient request if the prescription is for a schedule II opioid drug., 1 sprays Nares, Both Daily in AM, 175.5, c... Start Date: 09/23/21 Status: Ordered Flovent Diskus 100 mcg/inh inhalation powder 1 puffs, Inhalation, 2 times a day, # 60 each, 11 Refills, Maintenance, 09/23/21 11:11:00 EST, Powder, [facility]/pharmacy #1972, Partial fill upon patient request [...] severe Confirmed Active Severe obesity Confirmed Active 1Patricia Jaxson, RNCS; Christine Tellez VP STRATEGY SEED BUYER; [phone]; CSI [address] [facility] Social History Social History Type Response Smoking Status Never smoker; Tobacc o user in household: Yes entered on: 09/28/17 Sex Patient Care team information Care Team Personnel Name: Renea Puga MD Position: [facility] Resident Member Role: PCP Address: Address: [address] [place] [address]- Care Team Related Persons Name: BRISEYDA HUITRON Address: home [address] [place] [address] Name: DELGADO HUITRON Address: home [address] [place] [address] Name: JAMMIE HARRY Address: [address] [place] [address]
--- OUTSIDE RECORDS SUMMARY | 2023-02-09 06:35 | XMS_ITS | Continuity of Care Document ---
Author Name Unknown Organization [facility] Address [address] [place] [address]- Care Team Providers Care Allied Health Teacher Name Role Phone Renea Puga MD Primary Care Physician Encounter [facility] Date(s): 12/14/22 - 01/13/[address] [address]- Allergies, Adverse Reactions, Alerts No Known Allergies [...] term) 02 Given 1Admin Note: Diluent Lot #[id number] Exp:04/05/2019 [facility];[employer] 2Admin Note: vis given 06/02/11 3Admin Note: VIS 06/17/10 4Admin Note: VIS - 09/01/11 5Admin Note: vis given 05/09/2012 6Admin Note: vis 08/09/09 7Admin Note: VIS 8Admin Note: vis given Medications albuterol 0.083% inhalation solution 3 mL, Inhalation, Every 6 hours, PRN NEEDED FOR WHEEZING/SHORTNESS OF BREATH, # 150 mL, 5 Refills, Maintenance, 01/06/23 9:50:00 EST, [facility]/pharmacy #1972, 175, cm, 01/06/23 9:12:00 EST, Height, 160, kg, 12/19/22 20:15:00 EST, Dry Weight Start Date: 01/06/23 Status: Ordered albuterol CFC free 90 mcg/inh inhalation aerosol 2, puffs, Inhalation, Every 6 hours, PRN, # 1 each, Refills 1, Tot. Refills 1, Maintenance, 01/06/23 9:50:00 EST, Route to Pharmacy Electronically, [id number], [facility]/pharmacy #1972, 175, cm, 01/06/23 9:12:00 EST, Height, 160, k... Start Date: 01/06/23 Stop Date: 03/07/23 Status: Ordered Banophen 25 mg oral tablet TAKE 2 TABLETS BY MOUTH EVERY DAY AT BEDTIME *N/C* Start Date: 03/26/21 Status: Ordered busPIRone 5 mg oral tablet TAKE 1 TABLET BY MOUTH TWICE A DAY Start Date: 03/26/21 Status: Ordered Flonase 50 mcg/inh nasal spray 1 sprays, Nares, Both, Daily in AM, # 16 Gm, 11 Refills, Maintenance, 09/23/21 11:12:00 EST, [place],[facility]/pharmacy #1972, Partial fill upon patient request if the prescription is for a schedule II opioid drug., 1 sprays Nares, Both Daily in AM, 175.5, c... Start Date: 09/23/21 Status: Ordered Flovent Diskus 100 mcg/inh inhalation powder 1 puffs, Inhalation, 2 times a day, # 60 each, 11 Refills, Maintenance, 01/06/23 9:50:00 EST, Powder, [facility]/pharmacy #1972, Partial fill upon patient request if the prescription is for a schedule II opioid drug., 1 puffs Inhalation 2 times a day, 175, c... Start Date: 01/06/23 Status: Ordered Nebulizer/Compressor See Instructions, # 1 [...] severe Confirmed Active Severe obesity Confirmed Active 1Padrienne Puri RNCS; Christine Tellez WATERSHED COORDINATOR BULK LOADER; [phone]; CSI 55[address] [facility] Social History Social History Type Response Smoking Status Never smoker; Tobacc o user in household: Yes entered on: 09/28/17 Sex Patient Care team information Care Team Personnel Name: Renea Puga MD Position: [facility] Resident Member Role: PCP Address: Address: [address] [place] [address]- Care Team Related Persons Name: BRISEYDA HUITRON Address: [address] [place] [address] Name: DELGADO HUITRON Address: [address] [place] [address] Name: JAMMIE HARRY Address: [address] [place] [address]
--- OUTSIDE RECORDS SUMMARY | 2023-02-09 06:35 | XMS_ITS | Continuity of Care Document ---
Author Name Unknown Organization [facility] Address [address] [place] [address]- Care Team Providers Care Band Tier Name Role Phone Renea Puga MD Primary Care Physician Encounter [facility] Date(s): 01/06/23 - 02/05/[address] [address]- Attending Physician: Hattie Cardeans Admitting Physician: Hattie Cardenas Referring Physician: AdmtrHattie Allergies, Adverse Reactions, Alerts No Known Allergies [...] term) 02 Given 1Admin Note: Diluent Lot #[id number] Exp:04/05/2019 [facility];[employer] 2Admin Note: vis given 06/02/11 3Admin Note: VIS 06/17/10 4Admin Note: VIS - 09/01/11 5Admin Note: vis given 05/09/2012 6Admin Note: vis 08/09/09 7Admin Note: VIS 8Admin Note: vis given Medications albuterol 0.083% inhalation solution 3 mL, Inhalation, Every 6 hours, PRN NEEDED FOR WHEEZING/SHORTNESS OF BREATH, # 150 mL, 5 Refills, Maintenance, 01/06/23 9:50:00 EST, [facility]/pharmacy #1972, 175, cm, 01/06/23 9:12:00 EST, Height, 160, kg, 12/19/22 20:15:00 EST, Dry Weight Start Date: 01/06/23 Status: Ordered albuterol CFC free 90 mcg/inh inhalation aerosol 2, puffs, Inhalation, Every 6 hours, PRN, # 1 each, Refills 1, Tot. Refills 1, Maintenance, 01/06/23 9:50:00 EST, Route to Pharmacy Electronically, [id number], [facility]/pharmacy #1972, 175, cm, 01/06/23 9:12:00 EST, [...] Gm, 11 Refills, Maintenance, 09/23/21 11:12:00 EST, [place],[facility]/pharmacy #1972, Partial fill upon patient request if the prescription is for a schedule II opioid drug., 1 sprays Nares, Both Daily in AM, 175.5, c... Start Date: 09/23/21 Status: Ordered Flovent Diskus 100 mcg/inh inhalation powder 1 puffs, Inhalation, 2 times a day, # 60 each, 11 Refills, Maintenance, 01/06/23 9:50:00 EST, Powder, [facility]/pharmacy #1972, Partial fill upon patient request [...] Refills, Maintenance, 09/23/21 11:12:00 EST, ER Tablet, [facility]/pharmacy #1972, Partial fill upon patient request [...] Confirmed Active 1Padrienne Puri RNCS; Christine Tellez INVESTMENT OFFICER LIGHT RAIL SIGNAL TECHNICIAN; [phone]; CSI [address] [facility] Social History Social History Type Response Smoking Status Never smoker; Tobacc o user in household: Yes entered on: 09/28/17 Sex Patient Care team information Care Team Personnel Name: Renea Puga MD Position: [facility] Resident Member Role: PCP Address: Address: [address] [place] [address]- Care Team Related Persons Name: BRISEYDA HUITRON Address: [address] [place] [address] Name: DELGADO HUITRON Address: [address] [place] [address] Name: JAMMIE HARRY Address: [address] [place] [address]
[2023-02-09 06:54] VITALS: BP 154/91; PULSE 75; RESP 18; TEMP 36.6; O2SAT 100; BMI 52.4
[2023-02-09] MEDS: Lactated Ringers 1,000 ML 50 ML IVCONT (07:36)
--- NOTE | 2023-02-09 08:07 | MHC.SHP ---
Pre-Procedural Eval Section A Date of Service: 02/09/23 The patient is an INPATIENT: No The History & Physical has been completed within 30 days and I have reviewed it.: Yes Section B Chief Complaint: Cystitis, unspecified without hematuria Allergies: Allergies Allergy/AdvReac Type Severity Reaction Status Date / Time No Known Allergies Allergy Verified 02/01/23 11:11 Plan Diagnosis/Plan: Unchanged I have reviewed the history and physical and performed a pertinent physical examination on my patient. No changes have occurred unless specified. Discussed risks to include but not limited to, blood in the urine, burning with urination, urgency. Time Spent With Patient Time: Total time managing care of this patient today ____ minutes.
--- NOTE | 2023-02-09 08:12 | HO.ANESPROP2 ---
[facility] Active Problems Active Problems: All Active Problems (Updated 02/03/23 @ 10:29 by Kathryn Cody RN) Contusion of left knee (Acute) Gross hematuria (Acute) Cystitis (Acute) Bladder wall thickening (Acute) Past Medical History Medical History Hepatic steatosis History of high blood pressure Obesity DONOVAN on CPAP Social History Social History Alcohol intake: never Patient Tobacco Use Status: Never used Tobacco Use of substances other than those prescribed or required for medical reasons: No Are you DNR?: No Advance Directives: No Advance Directives Information Provided: Yes Current occupational status: unemployed Current occupation: left hand dominant Meds Allergies Allergy/AdvReac Type Severity Reaction Status Date / Time No Known Allergies Allergy Verified 02/01/23 11:11 Active Medications: Current Medications Lactated Ringer's (Lr) 1,000 mls @ 50 mls/hr IVCONT .Q20H RADHA Last Admin: 02/09/23 07:36 Dose: 50 mls/hr Home Medications Medication Instructions Recorded Confirmed Last Taken Type albuterol sulfate 2.5 mg/3 mL 2.5 mg inhalation QID PRN Wheezing 02/01/23 02/03/23 Unknown History (0.083 %) solution for nebulization albuterol sulfate 90 mcg/actuation 2 puff inhalation Q6H PRN wheezing 02/01/23 02/03/23 Unknown History aerosol inhaler (Ventolin HFA) fluticasone propionate 100 1 inh inhalation BID 02/01/23 02/03/23 Unknown History mcg/actuation blister powder for inhalation (Flovent Diskus) sodium chloride 0.65 % nasal spray 1 spray intranasal NEEDED 02/03/23 02/03/23 Unknown History aerosol (Saline Nasal) congestion Exam Exam Date and Time: February 09, [id number] Height,Weight and Vital Signs: Height 5 ft 9 in Weight 160.935 kg Last Vital Signs Temp 97.9 F 02/09/23 06:54 Pulse 75 02/09/23 06:54 Resp 18 02/09/23 06:54 BP 154/91 H 02/09/23 06:54 Pulse Ox 100 02/09/23 06:54 O2 Del Method Room Air 04/04/23 06:54 Airway Mallampati Class: II TM Dist: >3cm Neck ROM: Full Heart: RRR Lungs: CTA Assessment and Plan Final Anesthetic Review ASA Class: III Final Preanesthetic Review: Meds/Allgs Chart Reviewed, Consent Obtained/Reviewed, Anes Risks/Benef Reviewed and DNR Form (If Appl.) Patient Risk: Intermediate Procedure Risk: Low Anesthetic Plan Anesthetic Plan: GA Disposition: Standard PACU
--- NOTE | 2023-02-09 08:24 | PC.NURSE ---
pt reports muscle soreness r upper chest no n/v/sob/dizziness points closer to clavicle comes & goes dr. french aware no new orders (pt reports he had ekg wnl. ok to proceed for procedure.
--- NOTE | 2023-02-09 09:21 | W.PM.OPN ---
Operative Note Operative Note Date of Service: 02/09/23 Narrative: PREOP DIAGNOSIS: pelvic pain, microscopic hematuria, UTI POSTOP DIAGNOSIS: pelvic pain, microscopic hematuria, UTI, Right complete duplicated system PROCEDURE: CYSTOSCOPY HYDRODISTENTION, bilateral retrogrades, Modifier Bilateral Anethesia: General Surgeon: Dr. Boogie Gudino Indications: Ruddy is a 22-year-old male who was treated with antibiotics for UTI 01/04/2023, he has complained of persistent pelvic pain in discomfort with urination. Details of procedure: The patient was brought into the operating room placed on the OR table in supine position. 3 g of Ancef IV. General anesthesia was administered. The patient was repositioned into lithotomy position, prepped and draped in the usual sterile fashion. Time-out was done per protocol. A 22 fr cystoscope was placed transurethrally into the bladder. The bulbous urethra was within normal limits. The prostatic urethra was nonobstructive an within normal limits. Urine was drained from the bladder measuring 250 mL. The bladder was visualized noting two ureteral orifices at the right deo trigone; a is single ureteral orifice at the left deo trigone. There were no suspicious bladder lesions seen. The bladder was filled with sterile water at 80 cm of water pressure under gravity. The bladder was distended for 2 minutes. The fluid was drained throught the cystoscope. Bladder capacity measured 750 mL. Revisualization of the bladder, noted no glomerulations. No Howie ulcerations. Bilateral retrogrades were done. An open-ended ureteral catheter was used. There was a complete duplicated system on the right side. The most lateral orifice on the right side filled the lower pole moiety. There is a single urinary system on the left side which was within normal limits. The bladder was drained, the urinary cystoscope was removed. Complications: None Drains: none
[2023-02-09 09:33] VITALS: BP 145/90; PULSE 96; RESP 16; TEMP 36.8; O2SAT 98
[2023-02-09 09:38] VITALS: BP 165/96; PULSE 92; RESP 18; O2SAT 96
[2023-02-09] MEDS: Phenazopyridine HCL 100 MG TABLET 200 MG PO (09:42)
[2023-02-09 09:43] VITALS: BP 164/92; PULSE 97; RESP 18; O2SAT 97
[2023-02-09 09:48] VITALS: BP 156/90; PULSE 93; RESP 18; O2SAT 97
[2023-02-09 10:03] VITALS: BP 147/77; PULSE 84; RESP 18; TEMP 36.7; O2SAT 97
--- NOTE | 2023-02-09 14:19 | HO.POSTANES ---
Post Anesthesia Evaluation Post Anesthesia Evaluation Vital Signs: Vital Signs Temp Pulse Resp BP Pulse Ox O2 Del Method 02/09/23 10:03 98.0 F 84 18 147/77 H 97 Room Air 02/09/23 09:48 93 18 156/90 H 97 Room Air 02/09/23 09:43 97 18 164/92 H 97 Room Air 02/09/23 09:38 92 18 165/96 H 96 Room Air 02/09/23 09:33 98.3 F 96 16 145/90 H 98 Room Air 02/09/23 06:54 97.9 F 75 18 154/91 H 100 Room Air Anesthesia: General Endotracheal-GETA Mental Status: Awake Pain Control: Satisfactory Nausea/Vomiting: None Hydration: Adequate Anesthesia-Related Issues: No Anes. Related Issues
== END 2023-02-09 10:31 | disposition home or self-care (01) ==
PROVIDERS: Visit Provider Urology
PROC: 0T7B7ZZ Dilation of Bladder, Via Natural or Artificial Opening (ICD-10-PCS; CPT 52005; principal; 2023-02-09 08:30)
DX: R10.2 Pelvic and perineal pain (principal); R31.29 Other microscopic hematuria; N39.0 Urinary tract infection, site not specified; R30.9 Painful micturition, unspecified; Q62.5 Duplication of ureter; G47.33 Obstructive sleep apnea (adult) (pediatric)
CPT/HCPCS: 52005; C1758; J0690; J1100; J1643; J1885; J2250; J2405; J2795; J3010; Q9967

== ENCOUNTER → 2023-03-03 10:35 | Outpatient (BNVA) | payer OTHER, SELFPAY | PROVIDERS: Visit Provider Urology | DX: Q62.5 Duplication of ureter (principal); Z87.440 Personal history of urinary (tract) infections | CPT/HCPCS: 99212 ==

== ENCOUNTER 2024-03-03 10:49 | Outpatient (AMB) | payer OTHER, SELFPAY ==
--- NOTE | 2024-03-03 10:59 | A.OFFVIS_ITS ---
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 The patient did not go to have follow up renal US done. He states his urinary symptoms have improved but he will get intermittent dysuria and urgency. He is advised to avoid dietary bladder irritants, increase water intake. Urinalysis: proteinuria, microscopic hematuria. Discussed reorder Renal ultrasound and referred to Nephrology to evaluate proteinuria. Follow-up in 9 months Review of chart: 03/03/2023-- Ruddy is a 22-year-old male who presents to the office post-op cystoscopy hydrodistention. The patient underwent cystoscopy hydrodistention and bilateral retrogrades on 02/09/23 for pelvic pain, microscopic hematuria and UTI. OR findings noted complete duplicated system on the right side, no abnormalities of the bladder. I discussed with him that cystoscopy, retrograde noted a duplicated right collecting system. I discussed with him that it is a congenital variant it may cause some stasis of the urine that might increase his chances of getting UTI or kidney stones. I advised him to maintain adequate fluid intake. He states he is still having occasional bladder cramping. I discussed to avoid dietary bladder irritants such as caffeine and acidity food like vinegar and spicy food. It was discussed that if he has any UTI symptoms or cloudy urine that is persistent then he should call the office so that we can send his urine for culture. Evaluation today: Blood: negative, leukocytes: negative. CTAP results reviewed--01/04/23-- Kidneys: WNL, no renal calculi visualized. 02/01/2023--Ruddy is a 22-year-old male who presents to the clinic as new patient evaluation for ER follow up for hematuria and UTI symptoms. He presents to the clinic with his girlfriend. CoMorbidity Obesity, Sleep Apnea. The patient visited the ER on 01/04/2023 with complaints of hematuria and UTI symptoms since 2 days. He was prescribed with Levaquin 700 mg for 7 days. The patient had increased urinary frequency with gross hematuria since 2 days before visiting the ER. States progressing of symptoms while waiting in the ER. Denies having history of STD/UTI/urinary bladder symptoms. His girlfriend denied having any UTI symptoms. The patient completed antibiotic course in the ER but had badder spasm before and after voiding. The patient has sleep apnea and uses CPAP machine. The patient is not following any dietary recommendation for loosing weight. CTAP result reviewed?01/04/2023--Kidneys: WNL, no calculi visualized. Bladder: Diffuse wall thickening. Urinalysis result reviewed--01/04/2023-- Urine showed nitrite positive. RBC: Greater than 20, WBC: Greater than 50. Urine culture result reviewed--collected on 01/04/2023--Positive for E coli. Evaluation today: Blood: trace, Leukocytes: negative. Bladder scan PVR:26 mL. Gross, Hematuria, recent UTI. Discussed further evaluation with cystoscopy bilateral retrogrades. [facility] Medical History Hepatic steatosis Obesity DONOVAN on CPAP History of high blood pressure Social History Alcohol intake: never Patient Tobacco Use Status: Never used Tobacco Current occupational status: unemployed Current occupation: left hand dominant Results AMB Urinalysis, Automated UA Leukoctes 0 Raj/uL Last Edit by RAMAN Freed on 03/03/24 11:28 UA Nitrite Negative Last Edit by RAMAN Freed on 03/03/24 11:28 UA Urobilinogen 0.2 mg/dL Last Edit by RAMAN Freed on 03/03/24 11:2 8 UA Protein 15 mg/dL Last Edit by RAMAN Freed on 03/03/24 11:28 UA pH 6.0 Last Edit by RAMAN Freed on 03/03/24 11:28 UA Blood 10 Chente/uL Last Edit by RAMAN Freed on 03/03/24 11:28 UA Specific Osakis 1.020 Last Edit by RAMAN Freed on 03/03/24 11: 28 UA Ketone Negative Last Edit by RAMAN Freed on 03/03/24 11:28 UA Bilirubin 0 mg/dL Last Edit by RAMAN Freed on 03/03/24 11:28 UA Glucose 0 mg/dL Last Edit by RAMAN Freed on 03/03/24 11:28 Results Reviewed Results Reviewed: Laboratory Last Values Urine pH (Auto) 6.0 03/03/24 11:15 Specific Osakis (Auto) 1.020 03/03/24 11:15 Urine Protein (Auto) 15 mg/dL 03/03/24 11:15 Glucose (UA)(Auto) 0 mg/dL 03/03/24 11:15 Urine Ketones (Auto) Negative 03/03/24 11:15 Urine Blood (Auto) 10 Chente/uL 03/03/24 11:15 Urine Nitrite (Auto) Negative 03/03/24 11:15 Urine Bilirubin (Auto) 0 mg/dL 03/03/24 11:15 Urine Urobilinogen (Auto) 0.2 mg/dL 03/03/24 11:15 Leukocyte Esterase (Auto) 0 Raj/uL 03/03/24 11:15 Date of Service: 02/09/23 Procedure(s): FL guidance in OR EXAMINATION: XR FLUOROSCOPY WITH IMAGES COMPARISON: CT abdomen and pelvis 01/04/2023 TECHNIQUE: Fluoroscopy Supervised By: Dr. Gudino. Fluoroscopy Time: 38 seconds. Cumulative Dose: 31.1 mGy. Images: 4. FINDINGS: There is contrast in the collecting systems. Right sided duplication is seen with fullness upper pole moiety. Left collecting system is unremarkable. IMPRESSION: -Fluoroscopy for urologic procedures. 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 Date of Service: 01/04/23 EXAMINATION: CT ABDOMEN AND PELVIS WITHOUT CONTRAST? CLINICAL INFORMATION: Blood in urine. Suprapubic pain.? COMPARISON: None.? TECHNIQUE: Multidetector volumetric imaging was performed from the superior aspect of the liver through the pubic symphysis. Sagittal and coronal reformatted images were obtained on the technologist's workstation.? This CT examination was performed using dose optimization techniques as appropriate, variously including the following: *Automated exposure control *Adjustment of mA and/or kV according to patient size (this includes techniques or standardized protocols for targeted exams where dose is matched to indication/reason for exam; i.e. extremities or head) *Use of iterative reconstruction technique DLP: 1200 mGy-cm FINDINGS: The lack of intravenous contrast limits evaluation of the solid visceral organs including the liver, spleen, pancreas, and kidneys. LUNG BASES: No focal consolidation or pleural effusion.? LIVER, GALLBLADDER, AND BILIARY TREE: The liver is enlarged measuring 20.5 cm craniocaudally and demonstrates decreased attenuation suggesting hepatic steatosis. No discrete focal liver lesions are noted in this limited noncontrast examination. Normal appearance of the gallbladder. No biliary ductal dilatation. PANCREAS: Unremarkable.? SPLEEN: Unremarkable.? ADRENAL GLANDS: Unremarkable.? KIDNEYS AND URETERS: The kidneys are normal in size, shape, and attenuation. No hydronephrosis, hydroureter, or calculi seen. No perinephric stranding. ? BLADDER: Partially underdistended limiting assessment for wall thickening, however despite this limitation, there appears to be diffuse wall thickening with subtle perivesical fat stranding.? GASTROINTESTINAL TRACT: The stomach and the small bowel are nondilated. Normal appendix. No pericolonic inflammatory changes or evidence to suspect bowel obstruction.? ABDOMINAL WALL: No significant hernia is appreciated.? LYMPH NODES: Scattered slightly prominent mesentery and retroperitoneal lymph nodes not meeting pathological size criteria, nonspecific. VASCULAR: Limited noncontrast examination. Abdominal aorta is of normal diameter. PELVIC VISCERA: Unremarkable.? OSSEOUS STRUCTURES: No acute or aggressive appearing osseous abnormalities.? IMPRESSION: 1.? Bladder is partially underdistended limiting assessment for wall thickening, however despite this limitation, there appears to be diffuse wall thickening and subtle perivesical fat stranding suggesting cystitis. Correlate with urinalysis. 2.? No nephrolithiasis or hydronephrosis. 3.? Hepatomegaly and hepatic steatosis. Assessment & Plan Assessment & Plan (1) Proteinuria: Code(s): R80.9 - Proteinuria, unspecified Category: Medical (2) Duplicated right renal collecting system: Code(s): Q62.5 - Duplication of ureter Category: Medical (3) Hematuria: Code(s): R31.9 - Hematuria, unspecified Category: Medical (4) Pelvic pain in male: Code(s): R10.2 - Pelvic and perineal pain Category: Medical Plan Renal US. refer to Nephrology for proteinuria. Orders: Orders AMB Urinalysis Automated 03/03/24 Z13.9 - Encounter for screening, unspecified US renal BI 03/03/24 Q62.5 - Duplication of ureter, R31.9 - Hematuria, unspecified Referrals Nephrology Referral R80.9 - Proteinuria, unspecified Patient Instructions: The patient had an opportunity to ask questions regarding treatment plan. The patient expressed understanding and agreement with the above treatment plan. The patient is aware they should contact our office by phone for worsening of their current condition or the appearance of new symptoms. Compliance is encouraged with any medications and followup testing that is ordered. It is a privilege to be allowed the opportunity to participate in the urologic care of your patient. If you have any questions or concerns regarding treatment for the above conditions please do not hesitate to contact me. The office telephone contact is [phone]. This note is constructed in part using voice recognition software. While every effort has been made to ensure accuracy bow making machine operator errors may have been included. Yours sincerely, Boogie Gudino MD Coding Level of Care Code Est Pt Level 4 (90418) Diagnoses Proteinuria R80.9 Duplicated right renal collecting system Q62.5 Hematuria R31.9 Pelvic pain in male R10.2
== END 2024-03-03 11:54 | disposition home or self-care (01) ==
PROVIDERS: Visit Provider Urology
DX: R80.9 Proteinuria, unspecified (principal); Q62.5 Duplication of ureter; R31.9 Hematuria, unspecified; R10.2 Pelvic and perineal pain
CPT/HCPCS: 99214

== ENCOUNTER → 2024-03-03 10:49 | Outpatient (BNVA) | payer OTHER, SELFPAY | PROVIDERS: Visit Provider Urology | DX: R31.9 Hematuria, unspecified (principal); R10.2 Pelvic and perineal pain; R80.9 Proteinuria, unspecified; Q62.5 Duplication of ureter | CPT/HCPCS: 81003; 99212 ==

== ENCOUNTER 2024-04-20 10:51 | Outpatient (AMB) | payer OTHER, SELFPAY ==
[2024-04-20 11:02] VITALS: BP 130/82; PULSE 86; O2SAT 97; BMI 57.4
--- NOTE | 2024-04-20 11:02 | HO.NEPHOV_ITS ---
Vital Signs 04/20/24 11:02 Height 5 ft 9 in Weight 388 lb 8 oz BMI 57.4 BP 130/82 Blood Pressure Location Lt brachial Position Sitting Pulse 86 Pulse Source Pulse Oximeter Pulse Oximetry (%) 97 Oxygen Delivery Method Room Air Intake Visit Reasons: Proteinuria (pedi) LVM Underground Utility Locator Required: No Accompanied by: Significant Other Allergies prednisone Allergy (Verified 04/20/24 11:05) Muscle cramps HPI Comments Details: Ruddy is a 24 year old male whom I have seen consultation today for history of proteinuria and microscopic hematuria. He had history of urinary tract infection following a sexual encounter. He was treated with antibiotics and even underwent cystoscopy hydrodistension and bilateral retrograde on 02/09/23. 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 His urinary symptoms have improved but was found to have microscopic hematuria and proteinuria. He has gained a tremendous amount of weight. He denies epistaxis, hemoptysis, recurrent sinusitis, hematuria, hematemesis, melena, joint pains. His last BUN was 19 and creatinine 0.8. He has history of longstanding excessive nonsteroidal anti- inflammatory medication intake. He has no hearing deficits. His great grandmother had advanced chronic kidney disease, details of which he is unsure about. He has not a diabetic or hypertensive. He denies any history of nephrolithiasis. He was accompanied by his girlfriend during this office visit. [facility] Medical History Hepatic steatosis Obesity DONOVAN on CPAP History of high blood pressure Family History (Updated 04/20/24 @ 11:07 by Yumiko Buenrostro MA) Maternal Grandmother Diabetes Paternal Grandmother Diabetes Social History Alcohol intake: never Patient Tobacco Use Status: Never used Tobacco Current occupational status: unemployed Current occupation: left hand dominant Review of Systems Const All systems reviewed & are unremarkable except as noted in HPI and below Physical Exam Vital Signs: Last Vital Signs Pulse 86 04/20/24 11:02 BP 130/82 04/20/24 11:02 Pulse Ox 97 04/20/24 11:02 Oxygen Delivery Method Room Air 04/20/24 11:02 BMI result Body Mass Index 57.4 Const General: comfortable and no acute distress Orientation/consciousness: patient oriented x3 HEENT Head: Yes normocephalic Mouth: Normal oral and palatal mucosa present Eyes EOM: EOMs intact bilaterally Neck Neck: Yes supple Resp Auscultation: clear to auscultation bilaterally Cardio Jugular venous distension: no JVD Rate: regular rate GI Palpation (GI): Soft to palpation Auscultation: normal bowel sounds General: Yes no CVA tenderness Back/Spine/Pelvis Back: no CVA tenderness Skin General skin exam: no rashes or lesions noted Neuro General: patient oriented x3 and moves all extremities Extrem General: Yes no pedal edema Results Reviewed Nephrology Results: Hgb 14.1 g/dl (14.0-18.0) 01/05/23 WBC 14.1 X10*3/uL (4.8-10.8) H 01/05/23 Plt Count 312 X10*3/uL (160-400) 01/05/23 Sodium 140 mmol/L (135-145) 01/05/23 Potassium 4.0 mmol/L (3.3-5.1) 01/05/23 Chloride 104 mmol/L (96-108) 01/05/23 Carbon Dioxide 25 mmol/L (22-29) 01/05/23 BUN 19 mg/dL (9-16) H 01/05/23 Creatinine 0.88 mg/dL (0.5-1.4) 01/05/23 Calcium 9.6 mg/dL (8.4-10.2) 01/05/23 Urine Protein 100 (2+) mg/dL (Neg-Trace) H 01/04/23 Assessment & Plan Assessment & Plan (1) Proteinuria: Code(s): R80.9 - Proteinuria, unspecified Category: Medical Qualifiers: Proteinuria type: other Qualified Code(s): R80.8 - Other proteinuria (2) Microscopic hematuria: Code(s): R31.29 - Other microscopic hematuria Category: Medical Plan Ruddy had history of macroscopic hematuria and UTI. He underwent investigations including cystoscopy. He was found to have duplex ureters on the right side. He denies any awareness of nephrolithiasis. His serum creatinine has been 0.8. He has gained a tremendous amount of weight. He denies any risk factors for hepatitis or HIV. I have asked him to lose weight. I have ordered lab work. He may need a renal biopsy. Differential diagnosis is quite broad at this point in time. I had not make any medication changes this time. All questions answered. Follow-up appointment given. Orders: Orders Proteinase 3 PR3 Antibodies Today R80.9 - Proteinuria, unspecified Hepatitis B Core Antibody Today R80.9 - Proteinuria, unspecified Hepatitis B Surface Antigen Today R80.9 - Proteinuria, unspecified Blood Urea Nitrogen Today R80.9 - Proteinuria, unspecified Anti DNA DS Antibody Today R80.9 - Proteinuria, unspecified Myeloperoxidase Antibody Today R80.9 - Proteinuria, unspecified Anti Glomerular Basement Memb Today R80.9 - Proteinuria, unspecified Complement C3 Today R80.9 - Proteinuria, unspecified Complement C4 Today R80.9 - Proteinuria, unspecified Protein Electrophoresis, Serum Today R80.9 - Proteinuria, unspecified Phospholipase A2 Receptor Pnl Today R80.9 - Proteinuria, unspecified Electrolytes Today R80.9 - Proteinuria, unspecified Creatinine Today R80.9 - Proteinuria, unspecified Calcium Today R80.9 - Proteinuria, unspecified Complete Blood Count Auto Diff Today R80.9 - Proteinuria, unspecified Prothrombin Time INR Today R80.9 - Proteinuria, unspecified Protein, 24 Hr Urine Group Today R80.9 - Proteinuria, unspecified Coding Level of Care Code New Pt Level 4 (70076) Diagnoses Other proteinuria R80.8 Proteinuria type: other Microscopic hematuria R31.29
== END 2024-04-20 12:06 | disposition home or self-care (01) ==
PROVIDERS: Referring Provider Urology; Visit Provider Internal Medicine Nephrology
DX: R80.8 Other proteinuria (principal); R31.29 Other microscopic hematuria
CPT/HCPCS: 99204

== ENCOUNTER → 2024-04-20 10:51 | Outpatient (BNVA) | payer OTHER, SELFPAY | PROVIDERS: Referring Provider Urology; Visit Provider Internal Medicine Nephrology | DX: R80.8 Other proteinuria (principal); R31.29 Other microscopic hematuria | CPT/HCPCS: 99202 ==

== ENCOUNTER 2024-05-19 09:54 | Outpatient (REF) | payer OTHER, SELFPAY ==
[2024-05-19 10:19] LABS: MANUAL DIFF FLAG NO
[2024-05-19 11:08] LABS: Basophils Percent Auto 0.4 % (0-2); Eosinophils Absolute Auto 0.3 X10*3/uL (0.0-0.4); Eosinophils Percent Auto 2.5 % (0-4); Hematocrit 46.3 % (42.0-52.0); Hemoglobin 14.5 g/dl (14.0-18.0); Imm Gran Abs Auto 0.05 X10*3/uL (0.00-0.03); Imm Gran Pct Auto 0.5 % (0.0-0.4); Lymphocytes Absolute Auto 2.9 X10*3/uL (1.2-4.9); Lymphocytes Percent Auto 27.2 % (20-40); Mean Corpuscular HGB Conc 31.3 g/dl (31.0-36.0); Mean Corpuscular Hemoglobin 25.1 pg (27.0-33.0); Mean Corpuscular Volume 80.2 fL (80.0-98.0); Mean Platelet Volume 10.4 fL (9.4-12.4); Monocytes Absolute Auto 0.4 X10*3/uL (0.1-1.2); Monocytes Percent Auto 3.4 % (2-11); Neutrophils Absolute Auto 7.1 x10*3/uL (2.0-8.3); Platelet Count 289 X10*3/uL (160-400); Red Blood Count 5.77 X10*6/uL (4.60-5.80); Red Cell Distribution Width 14.9 % (11.0-16.0); White Blood Count 10.8 X10*3/uL (4.8-10.8)
[2024-05-19 11:14] LABS: Prothrombin Time 11.8 SEC (11.1-13.3)
[2024-05-19 11:35] LABS: Anion Gap 15 (12-20); Blood Urea Nitrogen 12 mg/dL (9-16); Calcium 9.9 mg/dL (8.4-10.2); Carbon Dioxide 24 mmol/L (22-29); Chloride 104 mmol/L (96-108); Estimated Glomerular Filt Rate > 60; Potassium 4.1 mmol/L (3.3-5.1); Sodium 139 mmol/L (135-145)
[2024-05-19 12:07] LABS: HBc Num1 0.16 S/CO (0.00-0.79); HBsAGNum1 0.36 S/CO (0.00-0.99); Hepatitis B Core Antibody Nonreactive (Nonreactive); Hepatitis B Surface Antigen Negative (Negative)
[2024-05-19 12:46] LABS: Total Volume 24 Hour Urine 3000 mL
[2024-05-19 13:03] LABS: Creatinine, 24Hr Urine 2.6 G/Day (1.0-2.0); Protein 24 Hr Urine < 210 mg/Day (<150); Protein mg/dL < 7 mg/dL
[2024-05-22 08:48] LABS: Complement C3 197 mg/dL (82-185)
[2024-05-22 16:14] LABS: Anti DNA DS Antibody 1 IU/mL; Anti Glomerular Basement Memb <1.0 AI; Myeloperoxidase Antibody <1.0 AI; Proteinase 3 PR3 Antibodies <1.0 AI
[2024-05-24 19:29] LABS: Prot Elec - Albumin 4.3 g/dL (3.8-4.8); Prot Elec - Alpha1 0.3 g/dL (0.2-0.3); Prot Elec - Alpha2 0.9 g/dL (0.5-0.9); Prot Elec - Beta 1 0.6 g/dL (0.4-0.6); Prot Elec - Beta 2 0.6 g/dL (0.2-0.5); Prot Elec - Gamma 1.8 g/dL (0.8-1.7); Prot Elec - Total Protein 8.5 g/dL (6.1-8.1)
[2024-05-31 11:44] LABS: Phospholipase A2 IgG ELISA <4 RU/mL; Phospholipase A2 IgG IFA NEGATIVE (NEGATIVE)
== END 2024-05-19 09:55 | disposition home or self-care (01) ==
LOC: HO.LAB 09:54
PROVIDERS: Visit Provider Internal Medicine Nephrology
DX: R80.9 Proteinuria, unspecified (principal)
CPT/HCPCS: 36415; 80051; 82310; 82565; 83520; 84156; 84165; 84520; 85025; 85610; 86021; 86160; 86225; 86255; 86704; 87340

== ENCOUNTER 2024-05-30 15:29 | Outpatient (AMB) | payer OTHER, SELFPAY ==
[2024-05-30 15:25] VITALS: BMI 57.3
--- NOTE | 2024-05-30 15:25 | HO.NEPHOV ---
Vital Signs 05/30/24 15:25 Height 5 ft 9 in Weight 388 lb BMI 57.3 Intake Visit Reasons: 5 wks follow up/ Conf Behavioral Interventionist Required: No Accompanied by: Self / Same As Patient Allergies prednisone Allergy (Verified 05/30/24 15:26) Muscle cramps HPI Comments Details: Ruddy is a 24 year old male whom I have seen by [facility] for history of proteinuria and microscopic hematuria. He had history of urinary tract infection following a sexual encounter. He was treated with antibiotics and even underwent cystoscopy hydrodistension and bilateral retrograde on 02/09/23. 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 His urinary symptoms have improved but was found to have microscopic hematuria and proteinuria. He has gained a tremendous amount of weight. He denies epistaxis, hemoptysis, recurrent sinusitis, hematuria, hematemesis, melena, joint pains. His last BUN was 19 and creatinine 0.8. He has history of longstanding excessive nonsteroidal anti-inflammatory medication intake. He has no hearing deficits. His great grandmother had advanced chronic kidney disease, details of which he is unsure about. He has not a diabetic or hypertensive. He denies any history of nephrolithiasis. His 24 hour urine showed 210 mg of protein [facility] Medical History Hepatic steatosis Obesity DONOVAN on CPAP History of high blood pressure Family History Maternal Grandmother Diabetes Paternal Grandmother Diabetes Social History Alcohol intake: never Patient Tobacco Use Status: Never used Tobacco Current occupational status: unemployed Current occupation: left hand dominant Physical Exam Vital Signs: BMI result Body Mass Index 57.3 Telehealth Telehealth Telehealth Platform: Telephone Location of provider rendering services: practice address Location of patient: address on file Patient Identification confirmed using: Name, : Yes Telehealth method: voice only Patient verbally consented to treatment: Yes Patient verbally consented to billing insurance company: Yes Patient informed of any privacy concerns related to visit: No Minutes spent on Phone/Video with Pt.: 10 Results Reviewed Nephrology Results: Hgb 14.5 g/dl (14.0-18.0) 05/19/24 WBC 10.8 X10*3/uL (4.8-10.8) 05/19/24 Plt Count 289 X10*3/uL (160-400) 05/19/24 Sodium 139 mmol/L (135-145) 05/19/24 Potassium 4.1 mmol/L (3.3-5.1) 05/19/24 Chloride 104 mmol/L (96-108) 05/19/24 Carbon Dioxide 24 mmol/L (22-29) 05/19/24 BUN 12 mg/dL (9-16) 05/19/24 Creatinine 0.84 mg/dL (0.5-1.4) 05/19/24 Calcium 9.9 mg/dL (8.4-10.2) 05/19/24 Assessment & Plan Assessment & Plan (1) Proteinuria: Code(s): R80.9 - Proteinuria, unspecified Category: Medical Qualifiers: Proteinuria type: other Qualified Code(s): R80.8 - Other proteinuria (2) Duplicated right renal collecting system: Code(s): Q62.5 - Duplication of ureter Category: Medical Plan Ruddy had history of macroscopic hematuria and UTI. He underwent investigations including cystoscopy. He was found to have duplex ureters on the right side. He denies any awareness of nephrolithiasis. His serum creatinine has been 0.8. He has gained a tremendous amount of weight. His 24 hour urine showed 210 mg of protein. I ordered F/U repeat labs. I have asked him to lose weight. He may need a renal biopsy as well as initiation of ARB. 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 I had not make any medication changes this time. All questions answered. Follow-up appointment given Orders: Orders Protein Creatinine Ratio, Ur Today R80.8 - Other proteinuria Coding Level of Care Code Tele Est Pt Level 4 (83901) Diagnoses Other proteinuria R80.8 Proteinuria type: other Duplicated right renal collecting system Q62.5
== END 2024-05-30 16:16 | disposition home or self-care (01) ==
PROVIDERS: Visit Provider Internal Medicine Nephrology
DX: R80.8 Other proteinuria (principal); Q62.5 Duplication of ureter
CPT/HCPCS: 99214

== ENCOUNTER → 2024-05-30 15:29 | Outpatient (BNVA) | payer OTHER, SELFPAY | PROVIDERS: Visit Provider Internal Medicine Nephrology ==

== ENCOUNTER 2024-08-07 09:57 | Emergency (ER) | payer OTHER, SELFPAY ==
[2024-08-07 10:20] VITALS: BP 198/104; PULSE 105; RESP 20; TEMP 36.7; O2SAT 100; BMI 56.8
--- OUTSIDE RECORDS SUMMARY | 2024-08-07 10:44 | XMS_ITS | Continuity of Care Document ---
Author Organization [facility] Address [address] [place] [address]- Care Team Providers Care Curriculum Director Name Role Phone Renea Puga MD Primary Care Physician Encounter [facility] Date(s): 12/21/23 - 01/20/[address] [address]- Allergies, Adverse Reactions, Alerts No Known Allergies [...] term) 02 Given 1Admin Note: Diluent Lot #[id number] Exp:04/05/2019 [facility];[employer] 2Admin Note: vis given 06/02/11 3Admin Note: VIS 06/17/10 4Admin Note: VIS - 09/01/11 5Admin Note: vis given 05/09/2012 6Admin Note: vis 08/09/09 7Admin Note: VIS 8Admin Note: vis given Medications Banophen 25 mg oral tablet TAKE 2 TABLETS BY MOUTH EVERY DAY AT BEDTIME *N/C* Start Date: 03/26/21 Status: Ordered busPIRone 5 mg oral tablet TAKE 1 TABLET BY MOUTH TWICE A DAY Start Date: 03/26/21 Status: Ordered Flonase 50 mcg/inh nasal spray 1 sprays, Nares, Both, Daily in AM, # 16 Gm, 11 Refills, Maintenance, 09/23/21 11:12:00 EST, [place],[facility]/pharmacy #[id number], Partial fill upon patient request if the prescription is for a schedule II opioid drug., 1 sprays Nares, Both Daily in AM, 175.5, c... Start Date: 09/23/21 Status: Ordered Flovent Diskus 100 mcg/inh inhalation powder 1 puffs, Inhalation, 2 times a day, # 60 each, 11 Refills, Maintenance, 01/06/23 9:50:00 EST, [place], [facility]/pharmacy #[id number], Partial fill upon patient request if the prescription is for a schedule II opioid drug., 1 puffs Inhalation 2 times a day, 175, c... Start Date: 01/06/23 Status: Ordered Nebulizer/Compressor See Instructions, # 1 each, Maintenance, dx asthma use nebulizer q 4-6 hrs as needed, 09/23/21 11:13:00 EST, Supply, 175.5, cm, 09/23/21 10:40:00 EST, Height Start Date: 09/23/21 Status: Ordered Ventolin HFA 108 mcg/inh inhalation aerosol with adapter 2 puffs, Inhalation, Every 6 hours, PRN NEEDED FOR WHEEZING, # 18 each, 5 Refills, Maintenance, 02/12/23 11:49:00 EDT, [id number], 175, cm, 01/06/23 9:12:00 EST, Height, 160, kg, 12/19/22 20:15:00 EST, Dry Weight Start Date: 02/12/23 Stop Date: 03/14/23 Status: Ordered ZyrTEC-D 5 mg-120 mg oral [...] Confirmed Active 1Padrienne Puri RNCS; Christine Tellez [facility]; [phone]; [facility] [id number] [facility] Social History Social History Type Response Smoking Status Never smoker; Tobacc o user in household: Yes entered on: 09/28/17 Sex Patient Care team information Care Team Personnel Name: Renea Puga MD Position: [facility] Resident Member Role: PCP Address: Address: [address] [place] [id number]- Care Team Related Persons Name: BRISEYDA HUITRON Address: home [address] [place] [address] Name: DELGADO HUITRON Address: home [address] [place] [address] Name: JAMMIE HARRY Address: home [address] [place] [address]
[2024-08-07 10:45] LABS: MANUAL DIFF FLAG NO
--- OUTSIDE RECORDS SUMMARY | 2024-08-07 10:45 | XMS_ITS | Continuity of Care Document ---
Author Organization [facility] Address [address] [place] [address]- Care Team Providers Care Manager Of Planning Name Role Phone Renea Puga MD Primary Care Physician Encounter [facility] Date(s): 12/16/23 - 01/15/[address] [address]- Encounter Diagnosis Diarrhea(Discharge Diagnosis) - 12/16/23 Allergies, Adverse Reactions, Alerts No Known Allergies [...] term) 02 Given 1Admin Note: Diluent Lot #[id number] Exp:04/05/2019 [facility];[employer] 2Admin Note: vis given 06/02/11 3Admin [...] Gm, 11 Refills, Maintenance, 09/23/21 11:12:00 EST, [id number], Partial fill upon patient request if the prescription is for a schedule II opioid drug., 1 sprays Nares, Both Daily in AM, 175.5, c... Start Date: 09/23/21 Status: Ordered Flovent Diskus 100 mcg/inh inhalation powder 1 puffs, Inhalation, 2 times a day, # 60 each, 11 Refills, Maintenance, 01/06/23 9:50:00 EST, [place], [id number], Partial fill upon [...] each, 5 Refills, Maintenance, 02/12/23 11:49:00 EDT, [facility] [id number], 175, cm, 01/06/23 9:12:00 EST, Height, 160, [...] Confirmed Active 1Padrienne Puri RNCS; Christine Tellez DIRECTOR OF COUNTERINTELLIGENCE [facility]; [phone]; [facility] [id number] [facility] Diagnosis Diagnosis Type Effective Dates Health Status Clini bel Service Informant Diarrhea Discharge Diagnosis 12/16/23 Social History Social History Type Response Smoking Status Never smoker; Tobacc o user in household: Yes entered on: 09/28/17 Sex Patient Care team information Care Team Personnel Name: Renea Puga MD Position: [facility] Resident Member Role: PCP Address: Address: [address] [place] [id number]- Care Team Related Persons Name: BRISEYDA HUITRON Address: home [address] [place] [address] Name: DELGADO HUITRON Address: home [address] [place] [address] Name: JAMMIE HARRY Address: home [address] [place] [address]
[2024-08-07 10:46] LABS: Basophils Percent Auto 0.2 % (0-2); Eosinophils Absolute Auto 0.1 X10*3/uL (0.0-0.4); Eosinophils Percent Auto 0.5 % (0-4); Hematocrit 41.4 % (42.0-52.0); Hemoglobin 13.4 g/dl (14.0-18.0); Imm Gran Abs Auto 0.09 X10*3/uL (0.00-0.03); Imm Gran Pct Auto 0.7 % (0.0-0.4); Lymphocytes Absolute Auto 2.2 X10*3/uL (1.2-4.9); Lymphocytes Percent Auto 17.4 % (20-40); Mean Corpuscular HGB Conc 32.4 g/dl (31.0-36.0); Mean Corpuscular Hemoglobin 26.2 pg (27.0-33.0); Mean Corpuscular Volume 80.9 fL (80.0-98.0); Mean Platelet Volume 9.8 fL (9.4-12.4); Monocytes Absolute Auto 0.7 X10*3/uL (0.1-1.2); Monocytes Percent Auto 5.5 % (2-11); Neutrophils Absolute Auto 9.7 x10*3/uL (2.0-8.3); Neutrophils Percent Auto 75.7 % (45-73); Platelet Count 239 X10*3/uL (160-400); Red Blood Count 5.12 X10*6/uL (4.60-5.80); Red Cell Distribution Width 14.6 % (11.0-16.0); White Blood Count 12.8 X10*3/uL (4.8-10.8)
--- OUTSIDE RECORDS SUMMARY | 2024-08-07 10:46 | XMS_ITS | Continuity of Care Document ---
Author Organization [facility] Address [address] [place] [address]- Care Team Providers Care Arbitrator Name Role Phone Levon Aguiar NP Primary Care Physicia n Encounter [facility] Date(s): 04/24/24 - 05/24/[address] [address]- Attending Physician: AdmHattie anne Admitting Physician: AdmtrHattie Referring Physician: Admtr, [id number] Allergies, Adverse Reactions, Alerts No Known Allergies [...] term) 02 Given 1Admin Note: Diluent Lot #[id number] Exp:04/05/2019 [facility];[employer] 2Admin Note: vis given 06/02/11 3Admin [...] A DAY Start Date: 03/26/21 Status: Ordered cetirizine 10 mg oral tablet 1 tablet = 10 mg, By Mouth, Daily, # 30 tablet, 5 Refills, Maintenance, 04/24/24 10:51:00 EDT, Tablet, [id number], Partial fill upon patient request if the prescription is for a schedule II opioid drug., 175, cm, 04/24/24 10:22:00 EDT, Height,... Start Date: 04/24/24 Stop Date: 10/21/24 Status: Ordered Flonase 50 mcg/inh nasal spray 1 sprays, Nares, Both, Daily in AM, # 16 Gm, 11 Refills, Maintenance, 09/23/21 11:12:00 EST, [place],[facility], Partial fill upon patient request if the prescription is for a schedule II opioid drug., 1 sprays Nares, Both Daily in AM, 175.5, c... Start Date: 09/23/21 Status: Ordered Flovent Diskus 100 mcg/inh inhalation powder 1 puffs, Inhalation, 2 times a day, # 60 each, 11 Refills, Maintenance, 04/24/24 10:50:00 EDT, Powder, [facility], Partial fill upon patient request if the prescription is for a schedule II opioid drug., 1 puffs Inhalation 2 times a day, 175,... Start Date: 04/24/24 Status: Ordered Nebulizer/Compressor See Instructions, # 1 each, Maintenance, dx asthma use nebulizer q 4-6 hrs as needed, 09/23/21 11:13:00 EST, Supply, 175.5, cm, 09/23/21 10:40:00 EST, Height Start Date: 09/23/21 Status: Ordered Ventolin HFA 108 mcg/inh inhalation aerosol with adapter 2 puffs, Inhalation, Every 6 hours, PRN NEEDED FOR WHEEZING, # 18 each, 5 Refills, Maintenance, 04/24/24 10:50:00 EDT, [facility], 175, cm, 04/24/24 10:22:00 EDT, Height, 160, kg, 12/19/2319:15:00 EST, Dry Weight Start Date: 04/24/24 Stop Date: 10/21/24 Status: Ordered Problem List Condition Confirmation Course [...] obesity Confirmed Active 1PCODY Torres; Christine Tellez ANTISQUEAK APPLIER [facility]; [phone]; CSI 74[address] [facility] Social History Social History Type Response Smoking Status Never smoker; Tobacc o user in household: Yes entered on: 09/28/17 Sex Patient Care team information Care Team Personnel Name: Levon Aguiar NP Position: [facility] PCO Associate Professional Member Role: PCP Address: Address: [address] [place] [address]- Care Team Related Persons Name: BRISEYDA HUITRON Address: home [address] [place] [address] Name: DELGADO HUITRON Address: home [address] [place] [address] Name: JAMMIE HARRY Address: home [address] [place] [address]
--- OUTSIDE RECORDS SUMMARY | 2024-08-07 10:46 | XMS_ITS | Continuity of Care Document ---
Author Organization [facility] Address [address] [place] [address]- Care Team Providers Care Software Writer Name Role Phone Renea Puga MD Primary Care Physician Encounter [facility] Date(s): 12/16/23 - 01/15/[address] [address]- Attending Physician: Hattie Cardenas Admitting Physician: Hattie Cardenas Referring Physician: AdmHattie anne Allergies, Adverse Reactions, Alerts No Known Allergies [...] term) 02 Given 1Admin Note: Diluent Lot #[id number] Exp:04/05/2019 [facility];[employer] 2Admin Note: vis given 06/02/11 3Admin [...] Gm, 11 Refills, Maintenance, 09/23/21 11:12:00 EST, [place],[facility]pharmacy #[id number], Partial fill upon patient [...] each, 5 Refills, Maintenance, 02/12/23 11:49:00 EDT, [facility], 175, cm, 01/06/23 9:12:00 EST, Height, 160, [...] Rash Confirmed Active Obesity - follows with Pedi Endo Confirmed Active Obstructive sleep apnea syndrome, severe Confirmed Active Severe obesity Confirmed Active 1Padrienne Puri RNCS; Christine Tellez PROJECT RESERVOIR ENGINEER [employer] COUNSEL[employer]; [phone]; CSI 25[address] [facility] Social History Social History Type Response Smoking Status Never smoker; Tobacc o user in household: Yes entered on: 09/28/17 Sex Patient Care team information Care Team Personnel Name: Renea Puga MD Position: [facility] Resident Member Role: PCP Address: Address: [address] [place] [address]- Care Team Related Persons Name: BRISEYDA HUITRON Address: home [address] [place] [address] Name: DELGADO HUITRON Address: [address] [place] [address] Name: JAMMIE HARRY Address: [address] [place] [address]
--- OUTSIDE RECORDS SUMMARY | 2024-08-07 10:46 | XMS_ITS | Continuity of Care Document ---
Author Organization [facility] Address [address] [place] [address]- Care Team Providers Care Top Ironer Name Role Phone Renea Puga MD Primary Care Physician Encounter [facility] Date(s): 04/05/24 - 05/05/[address] [address]- Allergies, Adverse Reactions, Alerts No Known Allergies [...] term) 02 Given 1Admin Note: Diluent Lot #[id number] Exp:04/05/2019 [facility];[employer] 2Admin Note: vis given 06/02/11 3Admin [...] Gm, 11 Refills, Maintenance, 09/23/21 11:12:00 EST, [place], Partial fill upon patient request if [...] Confirmed Active 1Padrienne Puri RNCS; Christine Tellez DIGITAL DATA ANALYST [facility]; [phone]; CSI [address] [facility] Social History Social History Type Response Smoking Status Never smoker; Tobacc o user in household: Yes entered on: 09/28/17 Sex Patient Care team information Care Team Personnel Name: Renea Puga MD Position: [facility] Resident Member Role: PCP Address: Address: [address] [place] [id number]- Care Team Related Persons Name: BRISEYDA HUITRON Address: [address] [place] [address] Name: DELGADO HUITRON Address: [address] [place] [address] Name: JAMMIE HARRY Address: home [address] [place] [address]
--- OUTSIDE RECORDS SUMMARY | 2024-08-07 10:46 | XMS_ITS | Continuity of Care Document ---
Author Organization [facility] Address [address] [place] [address] [address] [place] [address]- Care Team Providers Care Senior Billing Consultant Name Role Phone Renea Puga MD Primary Care Physician Encounter [facility] Date(s): 02/09/23 - 03/11/[address] [place] [address]- Attending Physician: AdmHattie anne Admitting Physician: AdmtrHattie Referring Physician: Admtr, Eliseo8 Allergies, Adverse Reactions, Alerts No Known Allergies [...] term) 02 Given 1Admin Note: Diluent Lot #[id number] Exp:04/05/2019 [facility];[employer] 2Admin Note: vis given 06/02/11 3Admin Note: [...] Gm, 11 Refills, Maintenance, 09/23/21 11:12:00 EST, [place],[facility]/pharmacy #1972, Partial fill upon patient request if the prescription is for a schedule II opioid drug., 1 sprays Nares, Both Daily in AM, 175.5, c... Start Date: 09/23/21 Status: Ordered Flovent Diskus 100 mcg/inh inhalation powder 1 puffs, Inhalation, 2 times a day, # 60 each, 11 Refills, Maintenance, 01/06/23 9:50:00 EST, Powder, [facility]/pharmacy #1972, Partial fill upon patient request if [...] each, 5 Refills, Maintenance, 02/12/23 11:49:00 EDT, [facility] STORE [id number], 175, cm, 01/06/23 9:12:00 EST, Height, 160, [...] obesity Confirmed Active 1PCODY Torres; Christine Tellez WOOD GOUGER [facility]; [phone]; CSI 4068 [facility] Social History Social History Type Response Smoking Status Never smoker; Tobacc o user in household: Yes entered on: 09/28/17 Sex Patient Care team information Care Team Personnel Name: Renea Puga MD Position: [facility] Resident Member Role: PCP Address: Address: [address] [place] [address]- Care Team Related Persons Name: BRISEYDA HUITRON Address: [address] [place] [address] Name: DELGADO HUITRON Address: [address] [place] [address] Name: JAMMIE HARRY Address: home [address] [place] [address]
--- OUTSIDE RECORDS SUMMARY | 2024-08-07 10:46 | XMS_ITS | Continuity of Care Document ---
Author Organization [facility] Address [address] [place] [address] [address] [place] [address]- Care Team Providers Care Laundry Housekeeper Name Role Phone Edd GIANG, Renea Primary Care Physician Encounter [facility] Date(s): 12/17/22 - 03/11/[address] [place] [address]- Attending Physician: Niurka Coker MD Referring Physician: Swati Truong MD Allergies, Adverse Reactions, Alerts No Known [...] term) 02 Given 1Admin Note: Diluent Lot #[id number] Exp:04/05/2019 [facility];[employer] 2Admin Note: vis given 06/02/11 3Admin [...] Gm, 11 Refills, Maintenance, 09/23/21 11:12:00 EST, [place],[facility], Partial fill upon patient request if [...] 5 Refills, Maintenance, 02/12/23 11:49:00 EDT, [facility] STORE [address], 175, cm, 01/06/23 9:12:00 EST, Height, 160, [...] Confirmed Active 1Padrienne Puri RNCS; Christine Tellez THERAPIST OCCUPATIONAL [facility]; [phone]; CSI 3587 [facility] Social History Social History Type Response Smoking Status Never smoker; Tobacc o user in household: Yes entered on: 09/28/17 Sex Patient Care team information Care Team Personnel Name: Renea Puga MD Position: [facility] Resident Member Role: PCP Address: Address: [address] [place] [address]- Care Team Related Persons Name: BRISEYDA HUITRON Address: home [address] [place] [address] Name: DELGADO HUITRON Address: [address] [place] [address] Name: JAMMIE HARRY Address: [address] [place] [address]
[2024-08-07 10:47] LABS: Appearance Urine Turbid; Color Urine Dark Yellow; Glucose Urine UA Negative (Negative); Leukocyte Esterase Urine Large (3+) (Negative); Nitrite Urine Positive (Negative); PH 6.5 (5.0-9.0); Specific Gravity - Urine 1.025 (1.005-1.025); UMIC TRIGGER UACC YES; Urine Blood Large (3+) (Negative); Urine Ketones Negative (Negative); Urine Protein 30 (1+) mg/dL (Neg-Trace)
[2024-08-07 10:53] LABS: Bacteria Urine 3+ (None Seen); Hyaline Casts Urine 0-2 /LPF (0-2); RBC Urine >20 /HPF (0-2); Squamous Epithelial Cell Urine 0-2 /HPF (0-2); UACC Culture Trigger YES; WBC Urine >50 /HPF (0-5)
[2024-08-07 11:01] LABS: Alanine Aminotransferase 51 U/L (0-40); Albumin Level 4.3 g/dL (3.5-5.0); Alkaline Phosphatase 60 U/L (39-117); Anion Gap 12 (12-20); Aspartate Amino Transferase 25 U/L (5-37); Bilirubin Total 0.6 mg/dL (0.0-1.0); Blood Urea Nitrogen 11 mg/dL (9-16); Calcium 9.6 mg/dL (8.4-10.2); Carbon Dioxide 26 mmol/L (22-29); Chloride 105 mmol/L (96-108); Creatinine Clr Calc Pharmacy 213.9; Estimated Glomerular Filt Rate > 60; Glucose Random 103 mg/dL (60-115); Sodium 139 mmol/L (135-145); Total Protein 8.4 g/dL (6.5-8.0)
[2024-08-07 12:04] VITALS: BP 154/91; PULSE 105; RESP 20; TEMP 36.9; O2SAT 98
--- NOTE | 2024-08-07 12:07 | ED_ITS ---
HPI - Male Genitourinary General Chief complaint: Urogenital-Male Stated complaint: Blood in urine/Fever Time Seen by Provider: 08/07/24 12:07 Source: patient, RN notes reviewed and old records reviewed Mode of arrival: ambulatory Limitations: no limitations History of Present Illness ED Provider: Anahi SHAH Narrative: 24-year-old male with history of congenital duplicated right renal collecting system presents for evaluation of a UTI. Patient reports for the last few weeks he has had increased burning with urination. He reports frequent UTIs due to his congenital renal abnormality. He reports he had a urine sample at his urologist a few weeks ago and that was bacteria in there but ?they told me it was normal. ? He reports burning every time he urinates and feels as though he has to pee right after urinating again. He complains of subjective fevers Related Data Home Medications ?Medication ?Instructions ?Recorded ?Confirmed albuterol sulfate 2.5 mg/3 mL 2.5 mg inhalation QID PRN Wheezing 02/01/23 03/03/23 (0.083 %) solution for nebulization albuterol sulfate 90 mcg/actuation 2 puff inhalation Q6H PRN wheezing 02/01/23 03/03/23 aerosol inhaler (Ventolin HFA) fluticasone propionate 100 1 inh inhalation BID 02/01/23 03/03/23 mcg/actuation blister powder for inhalation (Flovent Diskus) sodium chloride 0.65 % nasal spray 1 spray intranasal NEEDED 02/03/23 02/03/23 aerosol (Saline Nasal) congestion Previous Rx's ?Medication ?Instructions ?Recorded levofloxacin 750 mg tablet 750 mg PO DAILY #7 tabs 08/07/24 phenazopyridine 200 mg tablet 200 mg PO TID 6 doses #6 tabs 08/07/24 (Pyridium) Allergies Allergy/AdvReac Type Severity Reaction Status Date / Time prednisone Allergy Muscle Verified 08/07/24 10:24 cramps Review of Systems 2 Constitutional: Constitutional: Denies body ache(s), Reports chills and Reports fever(s) ENT: Denies sore throat Cardiovascular: Cardiovascular: Denies chest pain and Denies dyspnea Respiratory: Respiratory: Denies cough and Denies dyspnea Gastrointestinal: Gastrointestinal: Reports abdominal pain, Denies nausea and Denies vomiting Genitourinary: Genitourinary: Reports dysuria, Reports flank pain, Denies penile discharge, Denies testicular pain, Reports urinary frequency, Reports urinary hesitancy and Denies urinary incontinence Musculoskeletal: Musculoskeletal: Denies back pain Integumentary/Breasts: Skin/Breast: Denies rash PMFSH Past Medical History Medical History Hepatic steatosis Obesity DONOAVN on CPAP History of high blood pressure Family History Family History Maternal Grandmother Diabetes Paternal Grandmother Diabetes Social History Social History Alcohol intake: never Patient Tobacco Use Status: Never used Tobacco Advance Directives: No Advance Directives Information Provided: No Current occupational status: unemployed Current occupation: left hand dominant Physical Exam 2 Vital Signs: Vital Signs: Last Vital Signs Temp 98.4 F 08/07/24 12:04 Pulse 105 H 08/07/24 12:04 Resp 20 08/07/24 12:04 BP 154/91 H 08/07/24 12:04 Pulse Ox 98 08/07/24 12:04 O2 Del Method Room Air 08/07/24 12:04 BMI result Body Mass Index 56.8 Const: General: healthy appearing, comfortable, no acute distress, alert and awake Nutritional Appearance: well nourished Orientation/consciousness: p atient oriented x3 HEENT: Head: Yes normocephalic and Yes atraumatic Eyes: Eyelids: Yes eyelids normal Conjunctivae: conjunctivae normal S clerae: sclerae normal Corneas: corneas normal Pupils: Equal, round and reactive pupils present EOM: EOMs intact bilaterally Neck: Neck: Yes full ROM Resp: Effort & Inspection: normal respiratory effort, able to speak in complete sentences and not labored Cardio: Rate: regular rate Rhythm: regular rhythm GI: Inspection: No distended Palpation (GI): Soft to palpation, not firm, nontender, no guarding and not rigid Skin: General skin exam: elasticity normal Neuro: General: patient oriented x3 Cranial nerves: Yes Equal, round and reactive pupils present and Yes Bilaterally intact EOM present Cognition (Neuro): normal cognition Medical Decision Making Medical Decision Making MDM Narrative: 24-year-old male presents for evaluation of urinary tract symptoms as well as subjective fevers. He is afebrile on arrival to the ED, he does have a mild leukocytosis and findings consistent with a urinary tract infection. Given his history of duplicated renal collecting system, we will give a 1 week course of levofloxacin. Renal function within normal limits. Patient was given instructions to not be active while taking levofloxacin Differential Diagnosis Differential Diagnoses: The differential diagnosis associated with the presentation includes UTI Pyelonephritis Obstructive uropathy Cystitis Lab Data MDM Lab Attestation statement: I reviewed the patient's lab results. 08/07/24 10:39 08/07/24 10:39 Labs: Lab Results 08/07/24 Range/Units 10:39 WBC 12.8 H (4.8-10.8) X10*3/uL RBC 5.12 (4.60-5.80) X10*6/uL Hgb 13.4 L (14.0-18.0) g/dl Hct 41.4 L (42.0-52.0) % MCV 80.9 (80.0-98.0) fL MCH 26.2 L (27.0-33.0) pg MCHC 32.4 (31.0-36.0) g/dl RDW 14.6 (11.0-16.0) % Plt Count 239 (160-400) X10*3/uL MPV 9.8 (9.4-12.4) fL Immature Gran % (Auto) 0.7 H (0.0-0.4) % Neut % (Auto) 75.7 H (45-73) % Lymph % (Auto) 17.4 L (20-40) % [place] % (Auto) 5.5 (2-11) % Eos % (Auto) 0.5 (0-4) % Baso % (Auto) 0.2 (0-2) % Lymph # (Auto) 2.2 (1.2-4.9) X10*3/uL [place] # (Auto) 0.7 (0.1-1.2) X10*3/uL Eos # (Auto) 0.1 (0.0-0.4) X10*3/uL Baso # (Auto) 0.0 (0.0-0.2) X10*3/uL Abs Immat Gran (auto) 0.09 H (0.00-0.03) X10*3/uL Absolute Neuts (auto) 9.7 H (2.0-8.3) x10*3/uL Absolute Nucleated RBC 0.000 (0.0-0.012) X10*3/uL Nucleated RBC % (auto) 0.0 (0.0-0.2) /100WBC Sodium 139 (135-145) mmol/L Potassium 4.0 (3.3-5.1) mmol/L Chloride 105 (96-108) mmol/L Carbon Dioxide 26 (22-29) mmol/L Anion Gap 12 (12-20) BUN 11 (9-16) mg/dL Creatinine 0.86 (0.5-1.4) mg/dL Estim Creat Clear Calc 213.9 Estimated GFR > 60 Random Glucose 103 (60-115) mg/dL Calcium 9.6 (8.4-10.2) mg/dL Total Bilirubin 0.6 (0.0-1.0) mg/dL AST 25 (5-37) U/L ALT 51 H (0-40) U/L Alkaline Phosphatase 60 (39-117) U/L Total Protein 8.4 H (6.5-8.0) g/dL Albumin 4.3 (3.5-5.0) g/dL Urine Color Dark Yellow Urine Appearance Turbid Urine pH 6.5 (5.0-9.0) Ur Specific [place] 1.025 (1.005-1.025) Urine Protein 30 (1+) H (Neg-Trace) mg/dL Urine Glucose (UA) Negative (Negative) mg/dL Urine Ketones Negative (Negative) mg/dL Urine Blood Large (3+) H (Negative) Urine Nitrite Positive H (Negative) Ur Leukocyte Esterase Large (3+) H (Negative) Urine RBC >20 H (0-2) /HPF Urine WBC >50 H (0-5) /HPF Ur Squamous Epith Cells 0-2 (0-2) /HPF Urine Bacteria 3+ (None Seen) Hyaline Casts 0-2 (0-2) /LPF Discharge Plan Discharge Clinical Impression: Urinary tract infection Patient Disposition: Home, Self-Care Instructions: Urinary Tract Infection in Men (ED) Additional Instructions: Your workup in the ER does show findings consistent with a urinary tract infection. Take levofloxacin once daily for the next 1 week. You may use Pyridium as needed for symptomatic treatment of burning with urination. This will help with the pain. It will turn your urine orange, this will resolve when you stop taking the medication While you are taking the antibiotic levofloxacin, you should not be very active, avoid running or heavy lifting This medication can increase risk of tendon injury while taking it Prescriptions: New levofloxacin 750 mg tablet 750 mg PO DAILY Qty: 7 0RF phenazopyridine [Pyridium] 200 mg tablet 200 mg PO TID Qty: 6 0RF No Action Saline Nasal 0.65 % aerosol,spray 1 spray intranasal NEEDED Flovent Diskus 100 mcg/actuation blister with device 1 inh inhalation BID albuterol sulfate [Ventolin HFA] 90 mcg/actuation HFA aerosol inhaler 2 puff inhalation Q6H PRN (Reason: wheezing) albuterol sulfate 2.5 mg /3 mL (0.083 %) solution for nebulization 2.5 mg inhalation QID PRN (Reason: Wheezing) Print Language: Filipino
[2024-08-07 13:33] VITALS: BP 154/91; PULSE 105; RESP 20; TEMP 36.9; O2SAT 98
== END 2024-08-07 13:46 | disposition home or self-care (01) ==
PROVIDERS: Emergency Provider Emergency Medicine
DX: N39.0 Urinary tract infection, site not specified (principal); R30.0 Dysuria; E66.9 Obesity, unspecified; Z68.43 Body mass index [BMI] 50.0-59.9, adult; Z87.440 Personal history of urinary (tract) infections
CPT/HCPCS: 36415; 80053; 81001; 85025; 87086; 87088; 87186; 99282; 99283

== ENCOUNTER 2025-02-19 19:01 | Emergency (ER) | payer OTHER, SELFPAY ==
--- NOTE | ~2025-02-19 | XR_ITS ---
CLINICAL HISTORY: knee pain ?s p dislocation 4 view left knee Comparison: DX/SR - XR KNEE STANDING BI - 12/29/22 08:20 EST Findings: Bones intact. No dislocations. No significant arthritic change or erosions. No joint effusion. No radiopaque foreign body. IMPRESSION: 1. No acute findings. This document has been electronically signed by: Shruthi Padilla MD on 02/19/2025 20:11:50
[2025-02-19 19:13] VITALS: BP 136/78; PULSE 110; O2SAT 99
[2025-02-19 19:23] VITALS: BP 145/86; PULSE 105; RESP 18; TEMP 37.2; O2SAT 98; BMI 57.4
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
[2025-02-19] MEDS: Ibuprofen 800 MG TABLET PO (20:36)
--- NOTE | 2025-02-19 20:37 | PC.NURSE ---
pt medicated in triage according to mar
--- NOTE | 2025-02-19 20:50 | PC.NURSE ---
provider discharge pt from triage
[2025-02-19 20:51] VITALS: BP 145/86; PULSE 105; RESP 18; TEMP 37.2; O2SAT 98
== END 2025-02-19 20:52 | disposition home or self-care (01) ==
PROVIDERS: Emergency Provider Emergency Medicine Emergency Medical Services
DX: S83.92XA Sprain of unspecified site of left knee, initial encounter (principal); M25.562 Pain in left knee; V43.62XA Car passenger injured in collision with other type car in traffic accident, initial encounter; Y93.9 Activity, unspecified; Y92.410 Unspecified street and highway as the place of occurrence of the external cause; Y99.8 Other external cause status; Z79.899 Other long term (current) drug therapy
CPT/HCPCS: 73564; 99283

== ENCOUNTER → 2025-02-19 19:24 | Outpatient (BNV) | payer OTHER, SELFPAY | PROVIDERS: Emergency Provider Emergency Medicine Emergency Medical Services; Visit Provider Student in an Organized Health Care Education/Training Program | DX: M25.562 Pain in left knee (principal) | CPT/HCPCS: 73564 ==

== ENCOUNTER 2025-04-13 10:13 | Emergency (ER) | payer OTHER, SELFPAY ==
--- NOTE | ~2025-04-13 | CT_ITS ---
EXAMINATION: CT ABDOMEN PELVIS WITH IV CONTRAST HISTORY: vomiting, diarrhea X10 days, LLQ pain COMPARISON: There are no prior studies for available comparison. TECHNIQUE: CT scan of the abdomen and pelvis was performed following administration of 85 mL Omnipaque 350 using standard departmental protocol. Coronal and sagittal reformatted images were generated and reviewed. Oral contrast material was not administered at the request of the referring physician. This CT exam was performed with one or more of the following dose reduction techniques: automated exposure control, adjustment of the mA and/or kV according to patient size, use of iterative reconstruction technique. DLP: 1967 mGy-cm FINDINGS: LOWER CHEST: The visualized lung bases are clear. There is no pleural effusion. CARDIOVASCULATURE: The heart is normal in size. There is no pericardial effusion. LIVER: The liver is normal in size and contour, but demonstrates diffusely decreased attenuation, consistent with steatosis. No liver mass is identified. The hepatic and portal veins are patent. GALLBLADDER / BILE DUCTS: The gallbladder is unremarkable. There is no intra or extrahepatic biliary ductal dilatation. SPLEEN: The spleen is normal in size. No focal splenic lesion is identified. PANCREAS: The pancreas is unremarkable in appearance. ADRENAL GLANDS: Within normal limits. KIDNEYS/RETROPERITONEUM: No renal calculi are identified. There is no hydronephrosis. No renal masses are identified. LYMPH NODES: No abdominal or pelvic lymphadenopathy. VASCULATURE: The abdominal aorta is normal in caliber. MESENTERY/PERITONEUM: No free fluid. No masses. There is no free intraperitoneal gas. STOMACH: The stomach is collapsed, limiting evaluation. SMALL BOWEL: The small bowel is normal in caliber. COLON: The colon is unremarkable. APPENDIX: Normal. URINARY BLADDER/PELVIC ORGANS: The urinary bladder is unremarkable. The prostate is normal in size. BONES / SOFT TISSUES: No suspicious bony or soft tissue abnormalities. CT/CT abdomen pelvis w IV con IMPRESSION: Hepatic steatosis. Otherwise unremarkable contrast-enhanced CT of the abdomen and pelvis. Electronically signed by: Quinn Ortega MD 04/13/2025 02:48 PM EDT
[2025-04-13 10:23] VITALS: BP 133/52; PULSE 66; RESP 18; TEMP 36.4; O2SAT 100; BMI 54.3
--- NOTE | 2025-04-13 11:19 | ECG_ITS ---
Test Reason : cp Blood Pressure : */* mmHG Vent. Rate : 64 BPM Atrial Rate : 64 BPM P-R Int : 144 ms QRS Dur : 88 ms QT Int : 384 ms P-R-T Axes : 24 67 30 degrees QTcB Int : 396 ms Normal sinus rhythm with sinus arrhythmia Normal ECG When compared with ECG of 05-Jan-2023 01:07, No significant change was found Referred By: Eva Walsh Electronically Signed By: RANGEL REYES
[2025-04-13 11:30] LABS: MANUAL DIFF FLAG NO
[2025-04-13 11:33] LABS: Basophils Percent Auto 0.3 % (0-2); Eosinophils Absolute Auto 0.1 X10*3/uL (0.0-0.4); Eosinophils Percent Auto 0.6 % (0-4); Hematocrit 43.8 % (42.0-52.0); Hemoglobin 14.4 g/dl (14.0-18.0); Imm Gran Abs Auto 0.03 X10*3/uL (0.00-0.03); Imm Gran Pct Auto 0.3 % (0.0-0.4); Lymphocytes Percent Auto 25.7 % (20-40); Mean Corpuscular HGB Conc 32.9 g/dl (31.0-36.0); Mean Corpuscular Hemoglobin 26.2 pg (27.0-33.0); Mean Corpuscular Volume 79.6 fL (80.0-98.0); Mean Platelet Volume 10.2 fL (9.4-12.4); Monocytes Absolute Auto 0.5 X10*3/uL (0.1-1.2); Monocytes Percent Auto 4.3 % (2-11); Neutrophils Absolute Auto 7.9 x10*3/uL (2.0-8.3); Neutrophils Percent Auto 68.8 % (45-73); Platelet Count 328 X10*3/uL (160-400); Red Cell Distribution Width 14.4 % (11.0-16.0); White Blood Count 11.5 X10*3/uL (4.8-10.8)
[2025-04-13 11:55] LABS: Alanine Aminotransferase 118 U/L (0-40); Anion Gap 14 (12-20); Aspartate Amino Transferase 40 U/L (5-37); Bilirubin Direct 0.3 mg/dL (0.0-0.5); Bilirubin Total 0.6 mg/dL (0.0-1.0); Blood Urea Nitrogen 11 mg/dL (9-16); Calcium 10.6 mg/dL (8.4-10.2); Carbon Dioxide 26 mmol/L (22-29); Chloride 104 mmol/L (96-108); Creatinine Clr Calc Pharmacy 188.7; Estimated Glomerular Filt Rate > 60; Glucose Random 90 mg/dL (60-115); Lipase 21 U/L (8-78); Magnesium 2.1 mg/dL (1.6-2.6); Potassium 4.3 mmol/L (3.3-5.1); Sodium 140 mmol/L (135-145); Total Protein 8.8 g/dL (6.5-8.0)
[2025-04-13 12:51] LABS: Alkaline Phosphatase 73 U/L (39-117)
--- NOTE | 2025-04-13 13:02 | ED_ITS ---
HPI - Nausea/Vomiting/Diarrhea General Chief complaint: Nausea/Vomiting/Diarrhea Stated complaint: Food Poisoning X 10 Days Time Seen by Provider: 04/13/25 12:46 Source: patient and family (Significant other and friend at bedside corroborating history) Mode of arrival: ambulatory Limitations: no limitations History of Present Illness ED Provider: Collins Weinstein PA-C HPI Narrative: 25-year-old male with medical history of obesity, DONOVAN on CPAP, hepatic steatosis presents to the ED today due to 10 days of nausea and vomiting with diarrhea. Patient states 2 weeks ago he ate some pork chops that were left out on the counter and vomited 3 hours after ingestion. He states he continued to feel nauseous and ?sick?. Four days after ingesting the pork he went to [facility] and ate shrimp tempura sushi. He states soon after ingestion he began vomiting with multiple episodes of watery diarrhea. He states since then his symptoms have been worsening. He reports going to his PCP Tuesday 04/10 where they did blood work and a stool sample. Patient states this stool sample was negative for Salmonella but the doctor told him that his blood work was inconclusive and he most likely has food poisoning. He states that his symptoms have been progressively worsening since Wednesday with multiple episodes of vomiting and watery diarrhea with mucus. He states he has tried to eat some can progressive soup and is unable to keep it down vomiting right after ingestion. States he has been trying to stay hydrated with water nichole laron and apple juice which he is able to keep down. He denies chest pain, shortness of breath, fevers, chills, black/tarry stool, urinary symptoms, bilious vomiting. MD elicited complaint: nausea, vomiting and diarrhea Onset (ago): day(s) (10 ) Description of vomiting: watery Description of diarrhea: mucus and watery Associated nausea: Yes Location of pain: LUQ Pain consistency: constant Severity: moderate Quality: cramping and aching Exacerbating factors: eating Relieving factors: none Context: possible food poisoning Related Data Home Medications ?Medication ?Instructions ?Recorded ?Confirmed albuterol sulfate 2.5 mg/3 mL 2.5 mg inhalation QID PRN Wheezing 02/01/23 03/03/23 (0.083 %) solution for nebulization albuterol sulfate 90 mcg/actuation 2 puff inhalation Q6H PRN wheezing 02/01/23 03/03/23 aerosol inhaler (Ventolin HFA) fluticasone propionate 100 1 inh inhalation BID 02/01/23 03/03/23 mcg/actuation blister powder for inhalation (Flovent Diskus) sodium chloride 0.65 % nasal spray 1 spray intranasal NEEDED 02/03/23 02/03/23 aerosol (Saline Nasal) congestion Previous Rx's ?Medication ?Instructions ?Recorded levofloxacin 750 mg tablet 750 mg PO DAILY #7 tabs 08/07/24 phenazopyridine 200 mg tablet 200 mg PO TID 6 doses #6 tabs 08/07/24 (Pyridium) Allergies Allergy/AdvReac Type Severity Reaction Status Date / Time prednisone Allergy Muscle Verified 04/13/25 10:25 cramps amoxicillin AdvReac Diarrhea Verified 04/13/25 10:25 Review of Systems 2 Review of Systems: CONST: Negative for fever, body aches and chills. HENT: Negative for neck pain/stiffness, headache, congestion, sore throat, swelling. EYES: Negative for discharge/pain or vision changes. RESP: Negative for cough/hemoptysis and shortness of breath. CV: Negative chest pain, difficulty breathing, palpitations. ABD: POS pain, nausea, vomiting, diarrhea : Negative increase frequency, dysuria, blood in urine or stool. MUSC: Negative for muscle aches, edema. SKIN: Negative rash, lesions/sores. NEURO: Negative headache, dizziness. POS weakness. Yes all other systems are reviewed and are negative Gastrointestinal: Gastrointestinal: Reports nausea PMFSH Past Medical History Attestation statement: The following information was validated with the patient. Source: old records reviewed and obtained from family (Significant other and friend at the bedside corroborating history) Medical History Hepatic steatosis Obesity DONOVAN on CPAP History of high blood pressure Family History Family History Maternal Grandmother Diabetes Paternal Grandmother Diabetes Social History Social History Alcohol intake: never Patient Tobacco Use Status: Never used Tobacco Advance Directives: No Advance Directives Information Provided: Yes Do you have a plan to hurt others: No Plan Current occupational status: unemployed Current occupation: left hand dominant Physical Exam 2 Vital Signs: Vital Signs: Last Vital Signs Temp 97.5 F 04/13/25 10:23 Pulse 58 04/13/25 13:07 Resp 18 04/13/25 13:07 BP 132/51 L 04/13/25 13:07 Pulse Ox 97 04/13/25 13:07 O2 Del Method Room Air 04/13/25 13:07 BMI result Body Mass Index 54.3 GENERAL APPEARANCE: ?AxOx4, patient looks uncomfortable in the stretcher, no acute distress. HEENT: ?NC, AT. Mucous membranes dry. EOMI, clear conjunctiva, oropharynx clear. HEART:? Normal rate and regular rhythm, normal S1/S1, no m/r/g LUNGS:? CTAB, moving air well. No crackles or wheezes are heard. ABDOMEN: ?Soft, TTP LLQ, nondistended with hypoactive bowel sounds heard. Negative guarding, no rigidity, no rebound tenderness, negative Woodruff's, no flank or umbilical ecchymosis. BACK: No CVAT, no obvious deformity. EXTREMITIES: ?Without cyanosis, clubbing or edema. NEUROLOGICAL: ?Grossly nonfocal. Alert and oriented, moving all 4 extremities. Observed to ambulate with normal gait. Skin: ?Warm and dry without any rash. Medications Administered Discontinued Medications Generic Name Dose Route Start Last Admin Trade Name Freq PRN Reason Stop Dose Admin Lactated Ringer's 1,000 mls @ 999 mls/hr 04/13/25 13:11 04/13/25 13:36 Lr IV 04/13/25 14:11 999 mls/hr .Q1H1M ONE Administration Iohexol 100 ml 04/13/25 14:08 04/13/25 14:08 Iohexol 350 Mg/Ml 100 Ml Infus..Btl IV 04/13/25 14:09 100 ml ONCE ONE Administration Ondansetron HCl 4 mg 04/13/25 13:11 04/13/25 13:36 Ondansetron Hcl 4 Mg/2 Ml Vial IVPUSH 04/13/25 13:12 4 mg ONCE ONE Administration Medical Decision Making Medical Decision Making MDM Narrative: 25-year-old male with medical history of obesity, DONOVAN on CPAP, hepatic steatosis presents to the ED today due to 10 days of nausea and vomiting with diarrhea. Patient states 2 weeks ago he ate some pork chops that were left out on the counter and vomited 3 hours after ingestion, continued to feel nauseous and ?sick?. Four days after ingesting the pork he went to [facility] and ate shrimp sonia ayala, began vomiting with multiple episodes of watery diarrhea, with worsening symptoms. Went to PCP Tuesday 04/10 for blood work/stool sample. Stool sample negative for Salmonella but the doctor told him his blood work was inconclusive, and most likely has food poisoning. Symptoms have been progressively worsening since Wednesday. Tried to observe records from [facility] but unable to review stool sample findings. VSS, in no acute distress, nontoxic appearing. On physical exam patient has dry oral mucous membranes, mild TTP of LLQ, hypoactive bowel sounds. Patient not actively vomiting in the department. Labs reveal mild leukocytosis of 11.5 otherwise unremarkable. EKG without ST elevation/depression/T-wave abnormalities, without chest pain-less likely ACS. No epigastric pain, lipase WNL-less likely pancreatitis. We will begin IV fluids, 4 mg IV Zofran for nausea. We will order abdominal CT scan with IV contrast to evaluate for acute abdomen since patient's symptoms have been persistent for 2 weeks. Awaiting UA results. Course 14:31- Patient feels a little better after receiving IV fluids and IV zofran. Currently awaiting CT abdomen/pelvis read. 15:07- CT abdomen and pelvis does not observe any acute processes going on. Finding hepatic steatosis. Patient declined stool sample here in the department. States he is feeling better after fluids and Zofran and would like to go home for self-care. Doing p.o. trial with crackers and nichole laron before discharging. 15:43- Patient tolerated gingerale and crackers without nausea or vomiting. Feels comfortable to go home for self care. Urged patient to follow up with PCP and counseled on strict return precautions. Differential Diagnosis Differential Diagnoses: The differential diagnosis associated with the presentation includes Gastritis Foodborne illness Gastroenteritis Diverticular disease Admission/Observation Consideration of admission/observation: Escalation of care including admission/observation considered Lab Data MDM Lab Attestation statement: I reviewed the patient's lab results. 04/13/25 11:25 04/13/25 11:25 Labs: Lab Results 04/13/25 04/13/25 Range/Units 11:25 14:26 WBC 11.5 H (4.8-10.8) X10*3/uL RBC 5.50 (4.60-5.80) X10*6/uL Hgb 14.4 (14.0-18.0) g/dl Hct 43.8 (42.0-52.0) % MCV 79.6 L (80.0-98.0) fL MCH 26.2 L (27.0-33.0) pg MCHC 32.9 (31.0-36.0) g/dl RDW 14.4 (11.0-16.0) % Plt Count 328 D (160-400) X10*3/uL MPV 10.2 (9.4-12.4) fL Immature Gran % (Auto) 0.3 (0.0-0.4) % Neut % (Auto) 68.8 (45-73) % Lymph % (Auto) 25.7 (20-40) % Reynolds % (Auto) 4.3 (2-11) % Eos % (Auto) 0.6 (0-4) % Baso % (Auto) 0.3 (0-2) % Lymph # (Auto) 3.0 (1.2-4.9) X10*3/uL Reynolds # (Auto) 0.5 (0.1-1.2) X10*3/uL Eos # (Auto) 0.1 (0.0-0.4) X10*3/uL Baso # (Auto) 0.0 (0.0-0.2) X10*3/uL Abs Immat Gran (auto) 0.03 (0.00-0.03) X10*3/uL Absolute Neuts (auto) 7.9 (2.0-8.3) x10*3/uL Absolute Nucleated RBC 0.000 (0.0-0.012) X10*3/uL Nucleated RBC % (auto) 0.0 (0.0-0.2) /100WBC Sodium 140 (135-145) mmol/L Potassium 4.3 (3.3-5.1) mmol/L Chloride 104 (96-108) mmol/L Carbon Dioxide 26 (22-29) mmol/L Anion Gap 14 (12-20) BUN 11 (9-16) mg/dL Creatinine 0.94 (0.5-1.4) mg/dL Estim Creat Clear Calc 188.7 Estimated GFR > 60 Random Glucose 90 (60-115) mg/dL Calcium 10.6 H D (8.4-10.2) mg/dL Magnesium 2.1 (1.6-2.6) mg/dL Total Bilirubin 0.6 (0.0-1.0) mg/dL Direct Bilirubin 0.3 (0.0-0.5) mg/dL AST 40 H (5-37) U/L ALT 118 H (0-40) U/L Alkaline Phosphatase 73 (39-117) U/L Total Protein 8.8 H (6.5-8.0) g/dL Albumin 5.0 (3.5-5.0) g/dL Lipase 21 (8-78) U/L Urine Color Yellow Urine Appearance Clear Urine pH 8.5 (5.0-9.0) Ur Specific Ulman 1.025 (1.005-1.025) Urine Protein Trace (Neg-Trace) mg/dL Urine Glucose (UA) Negative (Negative) mg/dL Urine Ketones 40 (Negative) mg/dL Urine Blood Negative (Negative) Urine Nitrite Negative (Negative) Ur Leukocyte Esterase Trace H (Negative) Urine RBC 0-2 (0-2) /HPF Urine WBC 0-5 (0-5) /HPF Ur Squamous Epith Cells 6-10 (0-2) /HPF Urine Bacteria None Seen (None Seen) Hyaline Casts 0-2 (0-2) /LPF Independent Interpretation I performed an independent interpretation of an: EKG and CT Scan Interpretation: I independently reviewed the EKG: Test Reason : cp Blood Pressure : */* mmHG Vent. Rate : 64 BPM Atrial Rate : 64 BPM P-R Int : 144 ms QRS Dur : 88 ms QT Int : 384 ms P-R-T Axes : 24 67 30 degrees QTcB Int : 396 ms Normal sinus rhythm with sinus arrhythmia Normal ECG When compared with ECG of 05-Jan-2023 01:07, No significant change was found Radiology Impression Discussion of test interpretation with radiology: I have reviewed the radiologist's reading. Independent Historian Clinical information obtained from an independent historian. History obtained from or confirmed by: Spouse and Friend External Record Review External record reviewed: Inpatient record, Office record and Outpatient record Discharge Plan Discharge Clinical Impression: Gastroenteritis Patient Disposition: Home, Self-Care Instructions: Gastroenteritis (ED), Acute Nausea and Vomiting (ED), Acute Diarrhea (ED) Additional Instructions: You were evaluated in the ED today due to abdominal pain, nausea, vomiting, diarrhea. Your labs showed an elevated white blood cell count this is most likely due to extensive vomiting and diarrhea which can elevate this marker. Your EKG did not show any emergent process going on. Your CAT scan of your abdomen and pelvis revealed a fatty liver otherwise was unremarkable and did not show any emergent process going on with any of your abdominal organs. You were given IV fluids, 4 mg of IV Zofran for nausea and dehydration. Please follow up with your PCP to ensure improvement. Stay hydrated with plenty of fluids, eat a bland diet as tolerated until symptoms resolve. Please return to the ED if you experience fever over 100.4?, worsening abdominal pain, increased vomiting/blood in the vomit, increased diarrhea/blood in the stool, continued inability to keep down food and/or liquids, or any other new/worsening/concerning symptoms. Prescriptions: No Action Saline Nasal 0.65 % aerosol,spray 1 spray intranasal NEEDED levofloxacin 750 mg tablet 750 mg PO DAILY Qty: 7 0RF phenazopyridine [Pyridium] 200 mg tablet 200 mg PO TID Qty: 6 0RF Flovent Diskus 100 mcg/actuation blister with device 1 inh inhalation BID albuterol sulfate [Ventolin HFA] 90 mcg/actuation HFA aerosol inhaler 2 puff inhalation Q6H PRN (Reason: wheezing) albuterol sulfate 2.5 mg /3 mL (0.083 %) solution for nebulization 2.5 mg inhalation QID PRN (Reason: Wheezing) Print Language: [place]
[2025-04-13 13:07] VITALS: BP 132/51; PULSE 58; RESP 18; O2SAT 97
[2025-04-13] MEDS: ondansetron HCL 4 MG/2 ML VIAL IVPUSH (13:36)
[2025-04-13] MEDS: Lactated Ringers 1,000 ML 999 ML IV (13:36)
[2025-04-13] MEDS: iohexoL 350 MG/ML 100 ML INFUS..BTL IV (14:08)
[2025-04-13 14:38] LABS: Appearance Urine Clear; Color Urine Yellow; Glucose Urine UA Negative (Negative); Leukocyte Esterase Urine Trace (Negative); Nitrite Urine Negative (Negative); PH 8.5 (5.0-9.0); Specific Gravity - Urine 1.025 (1.005-1.025); UMIC TRIGGER UACC YES; Urine Blood Negative (Negative); Urine Ketones 40 mg/dL (Negative); Urine Protein Trace mg/dL (Neg-Trace)
[2025-04-13 14:43] LABS: Bacteria Urine None Seen (None Seen); Hyaline Casts Urine 0-2 /LPF (0-2); RBC Urine 0-2 /HPF (0-2); WBC Urine 0-5 /HPF (0-5)
[2025-04-13 15:58] VITALS: BP 147/69; PULSE 88; RESP 18; O2SAT 98
[2025-04-13 16:03] VITALS: BP 147/69; PULSE 88; RESP 18; TEMP 36.8; O2SAT 98
== END 2025-04-13 16:04 | disposition home or self-care (01) ==
PROVIDERS: Emergency Provider Emergency Medicine
DX: K52.9 Noninfective gastroenteritis and colitis, unspecified (principal); R11.2 Nausea with vomiting, unspecified; R10.12 Left upper quadrant pain; I49.8 Other specified cardiac arrhythmias; R07.89 Other chest pain; Z79.899 Other long term (current) drug therapy
CPT/HCPCS: 36415; 74177; 80053; 81001; 82248; 83690; 83735; 85025; 93005; 96361; 96374; 99284; J2405; J7120; Q9967

== ENCOUNTER → 2025-04-13 11:19 | Outpatient (BNV) | payer OTHER, SELFPAY | PROVIDERS: Emergency Provider Emergency Medicine; Visit Provider Internal Medicine | DX: R07.9 Chest pain, unspecified (principal) | CPT/HCPCS: 93010 ==

== ENCOUNTER → 2025-04-13 13:27 | Outpatient (BNV) | payer OTHER, SELFPAY | PROVIDERS: Emergency Provider Emergency Medicine; Visit Provider Radiology Diagnostic Radiology | DX: K76.0 Fatty (change of) liver, not elsewhere classified (principal) | CPT/HCPCS: 74177 ==